=== PATIENT | male | born 1950 | race Caucasian/White ===

== ENCOUNTER → 2017-01-19 | Outpatient (CLI) | payer MEDICARE ==
[~2017-01-19] MED LIST: REGADENOSON 0.4 MG/5 ML SYRINGE IV ONE
--- NOTE | 2017-01-19 10:41 | NM ---
EXAMINATION TYPE: NM stress lexiscan cardiolite DATE OF EXAM: 01/19/2017 COMPARISON: NONE HISTORY: Abnormal EKG TECHNIQUE: After the intravenous administration of 11.0 mCi Tc 99m Sestamibi - Cardiolite resting SP ECT images acquired 65 minutes post injection. The patient received 0.4mg Lexiscan, 25.2 mCi Tc 99m Sestamibi - Stress images obtained [address] injection FINDINGS: Review of stress and rest SPECT images demonstrates fixed defect involving the inferior wall of the m yocardium. Fixed defect involving the apical inferior portion of the myocardium. Corresponding wall m otion abnormality.. Gated analysis shows an estimated left ventricular ejection fraction of 63 %. IMPRESSION: 1. Fixed defect involving the inferior and inferoapical myocardium correlate for previous infarction. 2. Ejection fraction 63%.
--- NOTE | 2017-01-19 17:18 | P.STRESS ---
- Stress Test Note Stress Test Results/Findings: Exam Performed: NM stress lexiscan cardiolite Exam Date: 01/19/17 Reason for Exam: abn ekg Height: 6 ft 2 in Weight: 139.706 kg Protocol: Reyna scan Stage: N/A Duration of Exercise: N/A Resting Heart Rate: 77 Resting Blood Pressure: 204/75 Maximum Achieved Heart Rate: 94 Maximum Achieved Blood Pressure: 206/62 85% PMHR: 129 100% PMHR: 152 METS: N/A Technologist Comment: Stress Test Results/Findings: Patient was given Lexiscan injection over a period of for 15 seconds. Resting EKG shows normal sinus rhythm with a first-degree AV block and right bundle branch block pattern was noted. No ST segment depression suggestive ischemia is noted. And has a evidence of for resting high blood pressure. The results of the nuclear study will follow.
== END | disposition home or self-care (01) ==
LOC: RADNMMAIN 07:18
PROVIDERS: ATTEND Family Medicine
DX: I45.10 Unspecified right bundle-branch block (principal); I44.0 Atrioventricular block, first degree; R03.0 Elevated blood-pressure reading, without diagnosis of hypertension; R94.39 Abnormal result of other cardiovascular function study
CPT/HCPCS: 93017; 78452; A9500; J2785

== ENCOUNTER 2018-10-04 09:31 | Inpatient (IN) | payer MEDICARE ==
[2018-10-04] MEDS ORDERED: SODIUM CHLORIDE 0.9% 1,000 ML IV STA (10:41)
--- NOTE | 2018-10-04 10:43 | ED ---
General Adult HPI - General Chief complaint: Urogenital Stated complaint: Trouble urinating/not able to eat Time Seen by Provider: 10/04/18 10:08 Source: patient, family, RN notes reviewed Mode of arrival: wheelchair Limitations: no limitations - History of Present Illness Initial comments: Patient is a pleasant 67-year-old male presenting to the emergency department for decreased urination. Patient states he has not been able to urinate much the past couple of days. In addition patient states appetite has been decreased for the past couple of days. Patient has had some fatigue. No abdominal pain. No history of similar symptoms previously. No known fevers. - Related Data Home Medications Medication Instructions Recorded Confirmed Aspirin EC [Ecotrin] 325 mg PO BID 10/04/18 10/04/18 Carvedilol Phosphate [Coreg Cr] 10 mg PO DAILY 10/04/18 10/04/18 Furosemide [Lasix] 40 mg PO DAILY 10/04/18 10/04/18 Gabapentin [Neurontin] 300 mg PO TID 10/04/18 10/04/18 HYDROcodone/APAP 10-325MG [[place] 1 tab PO TID PRN 10/04/18 10/04/18 10-325] Mupirocin [Mupirocin 2%] 1 applic TOPICAL DAILY 10/04/18 10/04/18 Niacin 500 mg PO DAILY 10/04/18 10/04/18 Potassium Chloride ER [K-Dur 10] 10 meq PO BID 10/04/18 10/04/18 Ranitidine HCl [Zantac] 150 mg PO BID 10/04/18 10/04/18 Simvastatin [Zocor] 20 mg PO HS 10/04/18 10/04/18 Spironolactone [Aldactone] 25 mg PO BID 10/04/18 10/04/18 Zafirlukast [Accolate] 20 mg PO BID 10/04/18 10/04/18 Allergies Allergy/AdvReac Type Severity Reaction Status Date / Time No Known Allergies Allergy Verified 10/04/18 10:09 Review of Systems ROS Statement: Those systems with pertinent positive or pertinent negative responses have been documented in the HPI. ROS Other: All systems not noted in ROS Statement are negative. Constitutional: Denies: fever Eyes: Denies: eye pain ENT: Denies: ear pain Respiratory: Denies: cough Cardiovascular: Denies: chest pain Endocrine: Reports: fatigue Gastrointestinal: Denies: abdominal pain Genitourinary: Reports: urgency. Denies: dysuria, testicular pain, testicular mass Musculoskeletal: Denies: back pain Skin: Denies: rash Neurological: Denies: weakness Past Medical History Past Medical History: Chest Pain / Angina, Heart Failure, COPD, Hyperlipidemia, Hypertension History of Any Multi-Drug Resistant Organisms: None Reported Additional Past Surgical History / Comment(s): tumor removed from ear Past Psychological History: No Psychological Hx Reported Smoking Status: Never smoker Past Alcohol Use History: Rare Past Drug Use History: None Reported General Exam Limitations: no limitations General appearance: alert, in no apparent distress Head exam: Present: atraumatic Eye exam: Present: normal appearance, PERRL ENT exam: Present: normal oropharynx Neck exam: Present: normal inspection Respiratory exam: Present: normal lung sounds bilaterally Cardiovascular Exam: Present: regular rate, normal rhythm GI/Abdominal exam: Present: soft. Absent: distended, tenderness exam: Present: normal inspection. Absent: testicular tenderness, scrotal swelling Extremities exam: Present: normal inspection Neurological exam: Present: alert Psychiatric exam: Present: normal affect, normal mood Skin exam: Present: normal color Course Vital Signs 10/04/18 10/04/18 09:59 11:31 Temperature 99.2 F 98.4 F Pulse Rate 81 85 Respiratory 18 18 Rate Blood Pressure 121/57 147/69 O2 Sat by Pulse 98 98 Oximetry - Reevaluation(s) Reevaluation #1: 10/04/18 13:05 Patient does not meet sepsis criteria. Medical Decision Making - Medical Decision Making Patient reevaluated. Patient and family updated. Case was discussed in detail with Dr. Amado who will admit his patient. - Lab Data Result diagrams: 10/04/18 10:58 10/04/18 10:58 Lab Results 10/04/18 10/04/18 10/04/18 Range/Units 10:58 10:58 11:25 WBC 9.5 (3.8-10.6) k/uL RBC 3.82 L (4.30-5.90) m/uL Hgb 11.2 L (13.0-17.5) gm/dL Hct 33.3 L (39.0-53.0) % MCV 87.2 (80.0-100.0) fL MCH 29.2 (25.0-35.0) pg MCHC 33.5 (31.0-37.0) g/dL RDW 13.2 (11.5-15.5) % Plt Count 203 (150-450) k/uL Neutrophils % 82 % Lymphocytes % 6 % Monocytes % 8 % Eosinophils % 0 % Basophils % 0 % Neutrophils # 7.7 (1.3-7.7) k/uL Lymphocytes # 0.5 L (1.0-4.8) k/uL Monocytes # 0.8 (0-1.0) k/uL Eosinophils # 0.0 (0-0.7) k/uL Basophils # 0.0 (0-0.2) k/uL Sodium 132 L (137-145) mmol/L Potassium 4.6 (3.5-5.1) mmol/L Chloride 98 (98-107) mmol/L Carbon Dioxide 21 L (22-30) mmol/L Anion Gap 13 mmol/L BUN 44 H (9-20) mg/dL Creatinine 1.74 H (0.66-1.25) mg/dL Est GFR (CKD-EPI)AfAm 45 (>60 ml/min/1.73 sqM) Est GFR (CKD-EPI)NonAf 39 (>60 ml/min/1.73 sqM) Glucose 161 H (74-99) mg/dL Calcium 8.7 (8.4-10.2) mg/dL Urine Color Yellow Urine Appearance Turbid (Clear) Urine pH 6.0 (5.0-8.0) Ur Specific [place] 1.019 (1.001-1.035) Urine Protein 2+ H (Negative) Urine Glucose (UA) Negative (Negative) Urine Ketones Negative (Negative) Urine Blood Moderate H (Negative) Urine Nitrite Negative (Negative) Urine Bilirubin Negative (Negative) Urine Urobilinogen <2.0 (<2.0) mg/dL Ur Leukocyte Esterase Large H (Negative) Urine WBC >182 H (0-5) /hpf Urine WBC Clumps Many H (None) /hpf Urine Bacteria Moderate H (None) /hpf Urine Mucus Few H (None) /hpf - Radiology Data Radiology results: image reviewed (Chest x-ray shows cardiomegaly. Bibasilar infiltrate/effusion.) Disposition Clinical Impression: Renal insufficiency, Urinary tract infection Disposition: ADMITTED IP TO THIS HOSP Is patient prescribed a controlled substance at d/c from ED?: No Referrals: Kyle Amado MD [Primary Care Provider] - 1-2 days Decision Time: 13:06
[2018-10-04 11:23] LABS: Calcium 8.7 mg/dL (8.4-10.2); Potassium 4.6 mmol/L (3.5-5.1)
[2018-10-04 11:30] LABS: Basophils % (A) 0 %; Eosinophils % (A) 0 %; HCT 33.3 % (39.0-53.0); HGB 11.2 gm/dL (13.0-17.5); Lymphocytes # (A) 0.5 k/uL (1.0-4.8); Lymphocytes % (A) 6 %; MCH 29.2 pg (25.0-35.0); MCHC 33.5 g/dL (31.0-37.0); MCV 87.2 fL (80.0-100.0); Mean Platelet Volume 7.5; Monocytes # (A) 0.8 k/uL (0-1.0); Monocytes % (A) 8 %; Neutrophils # (A) 7.7 k/uL (1.3-7.7); Neutrophils % (A) 82 %; Platelet Count 203 k/uL (150-450); RBC 3.82 m/uL (4.30-5.90); RDW 13.2 % (11.5-15.5); WBC 9.5 k/uL (3.8-10.6)
--- NOTE | 2018-10-04 11:30 | XR ---
EXAMINATION TYPE: XR KUB portable DATE OF EXAM: 10/04/2018 COMPARISON: None INDICATION: Pain TECHNIQUE: Single view abdomen supine view FINDINGS: There is a normal bowel gas pattern. Psoas margins are normal. No organomegaly is present. Probable phleboliths are within the inferior pelvis. There is advanced degenerative changes at the le ft hip. Moderate approaching advanced degenerative changes are at the right hip. IMPRESSION: 1. Unremarkable Abdomen
[2018-10-04 11:49] LABS: Appearance,Urine Turbid (Clear); Bacteria,Urine Moderate /hpf; Bilirubin,Urine Negative (Negative); Blood,Urine Moderate (Negative); Color,Urine Yellow; Glucose,Urine (UA) Negative (Negative); Ketones,Urine Negative (Negative); Leukocyte Esterase,Urine Large (Negative); Mucus,Urine Few /hpf; Nitrite,Urine Negative (Negative); Protein,Urine 2+ (Negative); Specific Gravity,Urine 1.019 (1.001-1.035); Urobilinogen,Urine <2.0 mg/dL (<2.0)
[2018-10-04] MEDS ORDERED: cefTRIAXone IN SWFI 1,000 MG/10 ML SYRINGE IVP STA (13:06)
[2018-10-04] MEDS ORDERED: NALOXONE 0.4 MG/ML 1 ML VIAL IV PRN (13:07)
[2018-10-04] MEDS: SODIUM CHLORIDE 0.9% 1,000 ML IV SCH (15:15)
[2018-10-04] MEDS ORDERED: HYDROcodone/APAP 10-325MG 1 EACH TAB PO PRN (16:20)
--- NOTE | 2018-10-04 16:37 | P.HPIM ---
History of Present Illness H&P Date: 10/04/18 Chief Complaint: Difficulty urinating, decreased diet intake This is 67-year-old gentleman presenting with complaints of difficulty urinating, decreased diet intake over the last 2 days, accompanied by fatigue. Denies abdominal pain. Denies fevers or chills. Denies nausea vomiting or diarrhea. Denies abdominal pain. Denies chest pain, palpitations or increased shortness of breath. Creatinine 1.74, baseline currently unknown. UA reporting high WBCs, large bacteria .Urine cultures pending. Review of Systems ROS Statement: Those systems with pertinent positive or pertinent negative responses have been documented in the HPI. ROS Other: All systems not noted in ROS Statement are negative. Past Medical History Past Medical History: Asthma, Chest Pain / Angina, Heart Failure, COPD, Diabetes Mellitus, GERD/Reflux, Hyperlipidemia, Hypertension Additional Past Medical History / Comment(s): Chronic back pain, L leg edema, poor circulation bilateral legs/especially left, NIDDM type II, neuropathy bilateral hands/feet. History of Any Multi-Drug Resistant Organisms: None Reported Past Surgical History: Ear Surgery, Tonsillectomy Additional Past Surgical History / Comment(s): Lesion removed from R ear, colonoscopy Past Anesthesia/Blood Transfusion Reactions: No Reported Reaction Smoking Status: Former smoker - Past Family History Mother Family Medical History: COPD, Coronary Artery Disease (CAD), Myocardial Infarction ([place]) Additional Family Medical History / Comment(s): Pt does not know at what age mother had [place]. She was a smoker. Father Family Medical History: COPD, Coronary Artery Disease (CAD), Myocardial Infarction ([place]) Additional Family Medical History / Comment(s): Father had [place] but pt does not know at what age. Father was a smoker. Medications and Allergies Home Medications Medication Instructions Recorded Confirmed Type Aspirin EC [Ecotrin] 325 mg PO BID 10/04/18 10/04/18 History Carvedilol Phosphate [Coreg Cr] 10 mg PO DAILY 10/04/18 10/04/18 History Furosemide [Lasix] 40 mg PO DAILY 10/04/18 10/04/18 History Gabapentin [Neurontin] 300 mg PO TID 10/04/18 10/04/18 History HYDROcodone/APAP 10-325MG [[place] 1 tab PO TID PRN 10/04/18 10/04/18 History 10-325] Mupirocin [Mupirocin 2%] 1 applic TOPICAL DAILY 10/04/18 10/04/18 History Niacin 500 mg PO DAILY 10/04/18 10/04/18 History Potassium Chloride ER [K-Dur 10] 10 meq PO BID 10/04/18 10/04/18 History Ranitidine HCl [Zantac] 150 mg PO BID 10/04/18 10/04/18 History Simvastatin [Zocor] 20 mg PO HS 10/04/18 10/04/18 History Spironolactone [Aldactone] 25 mg PO BID 10/04/18 10/04/18 History Zafirlukast [Accolate] 20 mg PO BID 10/04/18 10/04/18 History Allergies Allergy/AdvReac Type Severity Reaction Status Date / Time No Known Allergies Allergy Verified 10/04/18 10:09 Physical Exam Vitals: Vital Signs Temp Pulse Pulse Resp BP BP Pulse Ox 10/04/18 16:00 16 10/04/18 14:45 99.5 F 80 17 150/71 100 10/04/18 13:52 100.3 F H 75 18 145/65 94 L 10/04/18 11:31 98.4 F 85 18 147/69 98 10/04/18 09:59 99.2 F 81 18 121/57 98 Intake and Output 10/04/18 10/04/18 10/04/18 06:59 14:59 22:59 Other: Voiding Method Toilet Urinal Weight 136.078 kg PHYSICAL EXAM: VITAL SIGNS: As above GENERAL: Sitting up in bed, no acute distress HEENT: Conjunctivae normal. eyes normal. NECK: No JVD. No thyroid enlargement. No LNs CARDIOVASCULAR: S1, S2 muffled. No murmur RESPIRATION: Breath sounds diminished in the bases. No rhonchi or crackles. No bronchial breathing. ABDOMEN: Soft, nontender . No guarding. no masses palpable. Bowel sounds heard. LEGS: No edema. no swelling PSYCHIATRY: Alert and oriented -3, mood and affect normal. NERVOUS SYSTEM: Cranial N 2-12 grossly normal. Moves all 4 limbs. Diffuse weakness No focal deficits. Skin: no lesions, no rash Joints: No active swelling. No inflammation. Lymphatic system. No LN neck axilla or groin. Microbiology 10/04/18 11:25 Urine,Voided Urine Culture - Preliminary Results CBC & Chem 7: 10/04/18 10:58 10/04/18 10:58 Labs: Abnormal Lab Results - Last 24 Hours (Table) 10/04/18 10/04/18 10/04/18 Range/Units 10:58 10:58 11:25 RBC 3.82 L (4.30-5.90) m/uL Hgb 11.2 L (13.0-17.5) gm/dL Hct 33.3 L (39.0-53.0) % Lymphocytes # 0.5 L (1.0-4.8) k/uL Sodium 132 L (137-145) mmol/L Carbon Dioxide 21 L (22-30) mmol/L BUN 44 H (9-20) mg/dL Creatinine 1.74 H (0.66-1.25) mg/dL Glucose 161 H (74-99) mg/dL Urine Protein 2+ H (Negative) Urine Blood Moderate H (Negative) Ur Leukocyte Esterase Large H (Negative) Urine WBC >182 H (0-5) /hpf Urine WBC Clumps Many H (None) /hpf Urine Bacteria Moderate H (None) /hpf Urine Mucus Few H (None) /hpf Microbiology - Last 24 Hours (Table) 10/04/18 11:25 Urine Culture - Preliminary Urine,Voided Thrombosis Risk Factor Assmnt - Choose All That Apply Any of the Below Risk Factors Present?: Yes Each Factor Represents 1 point: Abnormal pulmonary function (COPD), Obesity (BMI >25) Other Risk Factors: Yes Each Risk Factor Represents 2 Points: Age 61-74 years Other congenital or acquired thrombophilia - If yes, enter type in comment: No Thrombosis Risk Factor Assessment Total Risk Factor Score: 4 Thrombosis Risk Factor Assessment Level: Moderate Risk Assessment and Plan Assessment: Acute UTI, cultures pending -Acute renal failure -COPD -CHF history, Echo ordered. -Gastroesophageal reflux disease -Hypertension -Hyperlipidemia -Former nicotine abuse -Chronic back pain -Diabetes mellitus type 2 Plan: Continue on current medication regime ,monitoring and symptomatic treatment. Maintain nebulized bronchodilators, Rocephin, gentle IV fluid hydration. Cultures pending. Echo ordered if not done within the last 6 months Home meds have been reviewed and resumed. The impression and plan of care has been dictated as directed. : I performed a history and examination of this patient, discussed the same with the dictator. I agree with the dictator's note ,documented as a scribe. Any additional findings or plans will be noted.
[2018-10-04 17:05] LABS: Glucose,Whole Blood 134 mg/dL (75-99)
[2018-10-04] MEDS: FAMOTIDINE 20 MG TAB PO SCH (20:10)
[2018-10-04] MEDS: MONTELUKAST 10 MG TAB PO SCH (20:10)
[2018-10-04] MEDS: ASPIRIN 325 MG TAB PO SCH (20:10)
[2018-10-04] MEDS: ATORVASTATIN 10 MG TAB PO SCH (20:10)
[2018-10-04] MEDS: SPIRONOLACTONE 25 MG TAB PO SCH (20:10)
[2018-10-04] MEDS: GABAPENTIN 300 MG CAP PO SCH (20:10)
[2018-10-04] MEDS: POTASSIUM CHLORIDE ER 10 MEQ TAB.ER.PRT PO SCH (20:11)
[2018-10-04 21:17] LABS: Glucose,Whole Blood 157 mg/dL (75-99)
[2018-10-05] MEDS: SODIUM CHLORIDE 0.9% 1,000 ML IV SCH ×2 (03:40→17:42)
[2018-10-05] MEDS: GABAPENTIN 300 MG CAP PO SCH ×3 (08:15→23:24)
[2018-10-05] MEDS: ASPIRIN 325 MG TAB PO SCH ×2 (08:15→21:06)
[2018-10-05] MEDS: CARVEDILOL 3.125 MG TAB PO SCH ×2 (08:15→17:41)
[2018-10-05] MEDS: FAMOTIDINE 20 MG TAB PO SCH ×2 (08:15→21:06)
[2018-10-05] MEDS: POTASSIUM CHLORIDE ER 10 MEQ TAB.ER.PRT PO SCH ×2 (08:15→21:06)
[2018-10-05] MEDS: SPIRONOLACTONE 25 MG TAB PO SCH ×2 (08:15→21:06)
[2018-10-05] MEDS: MUPIROCIN 2% OINT 22 GM TUBE TOPICAL SCH (08:16)
[2018-10-05] MEDS: NIACIN TR 500 MG CAPLET PO SCH (08:17)
[2018-10-05] MEDS ORDERED: FUROSEMIDE 40 MG TAB PO SCH (09:00)
[2018-10-05 09:43] LABS: Basophils % (A) 0 %; Eosinophils # (A) 0.1 k/uL (0-0.7); Eosinophils % (A) 1 %; HCT 30.6 % (39.0-53.0); HGB 10.2 gm/dL (13.0-17.5); Lymphocytes # (A) 0.4 k/uL (1.0-4.8); Lymphocytes % (A) 5 %; MCH 29.9 pg (25.0-35.0); MCHC 33.4 g/dL (31.0-37.0); MCV 89.5 fL (80.0-100.0); Mean Platelet Volume 7.6; Monocytes # (A) 0.5 k/uL (0-1.0); Monocytes % (A) 6 %; Neutrophils # (A) 6.7 k/uL (1.3-7.7); Neutrophils % (A) 84 %; Platelet Count 177 k/uL (150-450); RBC 3.42 m/uL (4.30-5.90); RDW 13.2 % (11.5-15.5)
[2018-10-05 10:00] LABS: Albumin 3.4 g/dL (3.5-5.0); Calcium 8.3 mg/dL (8.4-10.2); Potassium 4.2 mmol/L (3.5-5.1); Total Bilirubin 0.5 mg/dL (0.2-1.3); Total Protein 6.1 g/dL (6.3-8.2)
--- NOTE | 2018-10-05 13:19 | ECHOF ---
Referral Reason:LV function MEASUREMENTS -------- HEIGHT: 193.0 cm WEIGHT: 136.1 kg BP: 131/71 RVIDd: 3.3 cm (< 3.3) IVSd: 1.4 cm (0.6 - 1.1) LVIDd: 4.8 cm (3.9 - 5.3) LVPWd: 1.4 cm (0.6 - 1.1) IVSs: 1.8 cm LVIDs: 3.3 cm LVPWs: 2.0 cm LA Diam: 4.2 cm (2.7 - 3.8) LAESV Index (A-L): 31.16 ml/m Ao Diam: 3.6 cm (2.0 - 3.7) AV Cusp: 2.3 cm (1.5 - 2.6) MV EXCURSION: 17.332 mm (> 18.000) MV EF SLOPE: 52 mm/s (70 - 150) EPSS: 0.4 cm MV E Joel: 0.98 m/s MV DecT: 188 ms MV A Joel: 0.77 m/s MV E/A Ratio: 1.28 RAP: 5.00 mmHg RVSP: 26.20 mmHg FINDINGS -------- Sinus rhythm. This was a technically difficult study with suboptimal views. The left ventricular size is normal. There is moderate concentric left ventricular hypertrophy. O verall left ventricular systolic function is normal with, an EF between 55 - 60 %. The right ventricle is mildly enlarged. LA is midly dilated 29-33ml/m2. The right atrium is normal in size. 5 ml of Lumason was utilized for enhancement of images. The aortic valve was not well visualized. The mitral valve leaflets are mildly thickened. Mild mitral annular calcification present. Mild tricuspid regurgitation present. Right ventricular systolic pressure is normal at < 35 mmHg. The pulmonic valve was not well visualized. The aortic root size is normal. Normal inferior vena cava with normal inspiratory collapse consistent with estimated right atrial pre ssure of 5 mmHg. There is no pericardial effusion. CONCLUSIONS -------- 1. Sinus rhythm. 2. This was a technically difficult study with suboptimal views. 3. The left ventricular size is normal. 4. There is moderate concentric left ventricular hypertrophy. 5. Overall left ventricular systolic function is normal with, an EF between 55 - 60 %. 6. The right ventricle is mildly enlarged. 7. LA is midly dilated 29-33ml/m2. 8. The right atrium is normal in size. 9. 5 ml of Lum[place] was utilized for enhancement of images. 10. The aortic valve was not well visualized. 11. The mitral valve leaflets are mildly thickened. 12. Mild mitral annular calcification present. 13. Mild tricuspid regurgitation present. 14. Right ventricular systolic pressure is normal at < 35 mmHg. 15. The pulmonic valve was not well visualized. 16. The aortic root size is normal. 17. Normal inferior vena cava with normal inspiratory collapse consistent with estimated right atrial pressure of 5 mmHg. 18. There is no pericardial effusion. INSTRUMENTATION DESIGNER: Carmelita Gurrola RDCS
--- NOTE | 2018-10-05 15:54 | P.PN ---
Subjective Progress Note Date: 10/05/18 This is 67-year-old gentleman presenting with complaints of difficulty urinating, decreased diet intake over the last 2 days, accompanied by fatigue. Denies abdominal pain. Denies fevers or chills. Denies nausea vomiting or diarrhea. Denies abdominal pain. Denies chest pain, palpitations or increased shortness of breath. Creatinine 1.74, baseline currently unknown. UA reporting high WBCs, large bacteria .Urine cultures pending. Maintained on IV antibiotics, gentle IV fluid hydration. T-max 100.3, currently afebrile. Afebrile. Renal function improving. Minimal pain/pressure with urination. Cultures reporting gram-negative bacilli. Echo suboptimal ,reporting normal LV function, EF 55-60%, moderate concentric left ventricular hypertrophy. Denies chest pain, palpitations or shortness of breath. Denies focal deficits, lightheadedness or dizziness. Objective - Vital Signs Vital signs: Vital Signs Temp 97.8 F 10/05/18 11:51 Pulse 64 10/05/18 11:51 Resp 18 10/05/18 15:30 BP 135/63 10/05/18 11:51 Pulse Ox 97 10/05/18 11:51 Intake & Output 10/04/18 10/05/18 10/05/18 18:59 06:59 18:59 Output Total 300 100 Balance -300 -100 Weight 136.078 kg Output: Urine 300 100 Other: Voiding Method Urinal Urinal Urinal # Voids 3 4 - Exam VITAL SIGNS: As above GENERAL: Sitting up at side of bed, no acute distress, visiting with friend HEENT: Conjunctivae normal. eyes normal. Oral mucosa moist NECK: No JVD. No thyroid enlargement. No LNs CARDIOVASCULAR: S1, S2 muffled. No murmur RESPIRATION: Breath sounds diminished in the bases. No rhonchi or crackles. ABDOMEN: Soft, nontender . No guarding. no masses palpable. Bowel sounds heard. LEGS: No edema. no swelling PSYCHIATRY: Alert and oriented -3, mood and affect normal. NERVOUS SYSTEM: Cranial N 2-12 grossly normal. Moves all 4 limbs. Diffuse weakness No focal deficits. Skin: no lesions, no rash Microbiology 10/04/18 11:25 Urine,Voided Urine Culture - Preliminary Gram Neg Bacilli - Labs CBC & Chem 7: 10/05/18 09:05 10/05/18 09:05 Labs: Abnormal Lab Results - Last 24 Hours (Table) 10/04/18 10/04/18 10/05/18 Range/Units 16:53 21:16 09:05 RBC (4.30-5.90) m/uL Hgb (13.0-17.5) gm/dL Hct (39.0-53.0) % Lymphocytes # (1.0-4.8) k/uL Sodium 133 L (137-145) mmol/L Carbon Dioxide 21 L (22-30) mmol/L BUN 44 H (9-20) mg/dL Creatinine 1.50 H (0.66-1.25) mg/dL Glucose 155 H (74-99) mg/dL POC Glucose (mg/dL) 134 H 157 H (75-99) mg/dL Calcium 8.3 L (8.4-10.2) mg/dL Total Protein 6.1 L (6.3-8.2) g/dL Albumin 3.4 L (3.5-5.0) g/dL 10/05/18 Range/Units 09:05 RBC 3.42 L (4.30-5.90) m/uL Hgb 10.2 L (13.0-17.5) gm/dL Hct 30.6 L (39.0-53.0) % Lymphocytes # 0.4 L (1.0-4.8) k/uL Sodium (137-145) mmol/L Carbon Dioxide (22-30) mmol/L BUN (9-20) mg/dL Creatinine (0.66-1.25) mg/dL Glucose (74-99) mg/dL POC Glucose (mg/dL) (75-99) mg/dL Calcium (8.4-10.2) mg/dL Total Protein (6.3-8.2) g/dL Albumin (3.5-5.0) g/dL Microbiology - Last 24 Hours (Table) 10/04/18 11:25 Urine Culture - Preliminary Urine,Voided Gram Neg Bacilli Assessment and Plan Assessment: Acute UTI, gram-negative bacilli -Acute renal failure, improving -COPD -CHF history, EF 55-60%, diastolic dysfunction -Gastroesophageal reflux disease -Hypertension -Hyperlipidemia -Former nicotine abuse -Chronic back pain -Diabetes mellitus type 2 Plan: Continue on current medication regime ,monitoring and symptomatic tr eatment. Continue on nebulized bronchodilators, Rocephin, gentle IV fluid hydration. Discharge planning in progress for tomorrow pending final culture results. Increase ambulation as tolerated. Further recommendations to follow. The impression and plan of care has been dictated as directed. : I performed a history and examination of this patient, discussed the same with the dictator. I agree with the dictator's note ,documented as a scribe. Any additional findings or plans will be noted.
[2018-10-05 20:52] LABS: Glucose,Whole Blood 140 mg/dL (75-99)
[2018-10-05] MEDS: MONTELUKAST 10 MG TAB PO SCH (21:06)
[2018-10-05] MEDS: ATORVASTATIN 10 MG TAB PO SCH (21:06)
--- NOTE | 2018-10-05 23:19 | P.CONS ---
History of Present Illness - Reason for Consult Consult date: 10/05/18 Urinary tract infection Requesting physician: Kyle Amado - Chief Complaint Decreased urination burning and low appetite x few days - History of Present Illness Patient is a 68-year-old male presenting to the ER at [facility] with chief complaints of generalized weakness and no energy poor appetite in addition to decreased urine output , the patient also have dark urine with burning at urination no hematuria no suprapubic or flank pain denies having nausea vomiting but did have a low appetite as mentioned above and no diarrhea with the symptoms the patient presented to the hospital for further evaluation and same on arrival to the orthopedic have fever 100.3 patient white count was normal but pt has significantly positive UA patient was started on Rocephin admitted to the hospital infectious disease was consulted for further recommendation regarding antibiotic therapy, Review of Systems CONSTITUTIONAL: Positive for weakness. Fever EYES: No complaint. ENT:No complaint. RESPIRATORY: No complaint. CARDIOVASCULAR: No complaint. GENITOURINARY: As per history of present illness GASTROINTESTINAL: As per history of present illness MUSCULOSKELETAL: No complaint. INTEGUMENTARY: No complaint. PSYCHOLOGICAL: No complaint. ENDOCRINE: No complaint. NEUROLOGIC: No complaint. Past Medical History Past Medical History: Asthma, Chest Pain / Angina, Heart Failure, COPD, Diabetes Mellitus, GERD/Reflux, Hyperlipidemia, Hypertension Additional Past Medical History / Comment(s): Chronic back pain, L leg edema, poor circulation bilateral legs/especially left, NIDDM type II, neuropathy bilateral hands/feet. History of Any Multi-Drug Resistant Organisms: None Reported Past Surgical History: Ear Surgery, Tonsillectomy Additional Past Surgical History / Comment(s): Lesion removed from R ear, colonoscopy Past Anesthesia/Blood Transfusion Reactions: No Reported Reaction Smoking Status: Former smoker - Past Family History Mother Family Medical History: COPD, Coronary Artery Disease (CAD), Myocardial Infarction (KS) Additional Family Medical History / Comment(s): Pt does not know at what age mother had [place]. She was a smoker. Father Family Medical History: COPD, Coronary Artery Disease (CAD), Myocardial Infarction ([place]) Additional Family Medical History / Comment(s): Father had [place] but pt does not know at what age. Father was a smoker. Medications and Allergies Home Medications Medication Instructions Recorded Confirmed Type Aspirin EC [Ecotrin] 325 mg PO BID 10/04/18 10/04/18 History Carvedilol Phosphate [Coreg Cr] 10 mg PO DAILY 10/04/18 10/04/18 History Furosemide [Lasix] 40 mg PO DAILY 10/04/18 10/04/18 History Gabapentin [Neurontin] 300 mg PO TID 10/04/18 10/04/18 History HYDROcodone/APAP 10-325MG [[place] 1 tab PO TID PRN 10/04/18 10/04/18 History 10-325] Mupirocin [Mupirocin 2%] 1 applic TOPICAL DAILY 10/04/18 10/04/18 History Niacin 500 mg PO DAILY 10/04/18 10/04/18 History Potassium Chloride ER [K-Dur 10] 10 meq PO BID 10/04/18 10/04/18 History Ranitidine HCl [Zantac] 150 mg PO BID 10/04/18 10/04/18 History Simvastatin [Zocor] 20 mg PO HS 10/04/18 10/04/18 History Spironolactone [Aldactone] 25 mg PO BID 10/04/18 10/04/18 History Zafirlukast [Accolate] 20 mg PO BID 10/04/18 10/04/18 History Allergies Allergy/AdvReac Type Severity Reaction Status Date / Time No Known Allergies Allergy Verified 10/04/18 10:09 Physical Exam Vitals: Vital Signs Temp Pulse Pulse Resp BP BP Pulse Ox 10/05/18 11:51 97.8 F 64 18 135/63 97 10/05/18 08:00 18 10/05/18 04:30 98.2 F 71 18 131/71 98 10/04/18 21:00 98.7 F 69 18 115/89 97 10/04/18 16:00 16 10/04/18 14:45 99.5 F 80 17 150/71 100 10/04/18 13:52 100.3 F H 75 18 145/65 94 L Intake and Output 10/04/18 10/05/18 10/05/18 22:59 06:59 14:59 Output Total 400 Balance -400 Output: Urine 400 Other: Voiding Method Urinal Urinal # Voids 1 4 GENERAL DESCRIPTION: Elderly male lying in bed, no distress. No tachypnea or accessory muscle of respiration use. HEENT: Shows Pallor , no scleral icterus. Oral mucous membrane is dry. No pharyngeal erythema or thrush NECK: Trachea central, no thyromegaly. LUNGS: Unlabored breathing. Clear to auscultation anteriorly. No wheeze or crackle. HEART: S1, S2, regular rate and rhythm. No loud murmur ABDOMEN: Soft, no tenderness , guarding or rigidity, no organomegaly EXTREMITIES: No edema of feet. SKIN: No rash, no masses palpable. NEUROLOGICAL: The patient is awake, alert, oriented x3, mood and affect normal. Results CBC & Chem 7: 10/05/18 09:05 10/05/18 09:05 Labs: Abnormal Lab Results - Last 24 Hours (Table) 10/04/18 10/04/18 10/05/18 Range/Units 16:53 21:16 09:05 RBC (4.30-5.90) m/uL Hgb (13.0-17.5) gm/dL Hct (39.0-53.0) % Lymphocytes # (1.0-4.8) k/uL Sodium 133 L (137-145) mmol/L Carbon Dioxide 21 L (22-30) mmol/L BUN 44 H (9-20) mg/dL Creatinine 1.50 H (0.66-1.25) mg/dL Glucose 155 H (74-99) mg/dL POC Glucose (mg/dL) 134 H 157 H (75-99) mg/dL Calcium 8.3 L (8.4-10.2) mg/dL Total Protein 6.1 L (6.3-8.2) g/dL Albumin 3.4 L (3.5-5.0) g/dL 10/05/18 Range/Units 09:05 RBC 3.42 L (4.30-5.90) m/uL Hgb 10.2 L (13.0-17.5) gm/dL Hct 30.6 L (39.0-53.0) % Lymphocytes # 0.4 L (1.0-4.8) k/uL Sodium (137-145) mmol/L Carbon Dioxide (22-30) mmol/L BUN (9-20) mg/dL Creatinine (0.66-1.25) mg/dL Glucose (74-99) mg/dL POC Glucose (mg/dL) (75-99) mg/dL Calcium (8.4-10.2) mg/dL Total Protein (6.3-8.2) g/dL Albumin (3.5-5.0) g/dL Microbiology - Last 24 Hours (Table) 10/04/18 11:25 Urine Culture - Preliminary Urine,Voided Gram Neg Bacilli Assessment and Plan Assessment: 1-patient presented to hospital with a fever and generalized weakness urinary symptoms of difficulty urination burning likely representing urinary tract infection likely from enteric gram-negative pathogen with concern for possible urinary outflow obstruction as possible risk factor (1) Urinary tract infection Current Visit: Yes Status: Acute Code(s): N39.0 - URINARY TRACT INFECTION, SITE NOT SPECIFIED SNOMED Code(s): 20449551 Plan: 1-Rocephin 1 g IV piggyback daily 2-check ultrasound of the kidney plantar area 3-gentle IV fluid We will follow-up clinical condition and cultures to further adjust medication if needed Thank you for this consultation will follow this patient along with you Time with Patient: Greater than 30
[2018-10-06] MEDS: SODIUM CHLORIDE 0.9% 1,000 ML IV SCH ×2 (06:26→20:03)
--- NOTE | 2018-10-06 07:56 | US ---
EXAMINATION TYPE: US kidneys/renal and bladder DATE OF EXAM: 10/06/2018 COMPARISON: NONE CLINICAL HISTORY: UTI , Elevated Cr. Painful urination EXAM MEASUREMENTS: Right Kidney: 11.8 x 5.9 x 4.8 cm Left Kidney: 13.7 x 6.6 x 5.6 cm Right Kidney: No hydronephrosis or masses seen Left Kidney: No hydronephrosis or masses seen Bladder: Anechoic. Slight urinary bladder wall thickening measuring up to 6 mm. No masses seen. Patie nt could not void. Stated he had "just gone" but it was painful. Bilateral Jets seen: No Normal Post Void Residual: Unable to void. There is no evidence for hydronephrosis at this point in time. No nephrolithiasis is seen. No raquel s are identified. The urinary bladder is anechoic. IMPRESSION: 1. No hydronephrosis or nephrolithiasis. 2. Slight thickening of the urinary bladder is most likely related to this patient's known cystitis. No focal mass is seen however CT urogram could further assess for sessile lesions if there is further clinical concern.
[2018-10-06 08:34] LABS: Calcium 8.3 mg/dL (8.4-10.2); Potassium 4.3 mmol/L (3.5-5.1)
[2018-10-06] MEDS: ASPIRIN 325 MG TAB PO SCH ×2 (08:41→20:03)
[2018-10-06] MEDS: CARVEDILOL 3.125 MG TAB PO SCH ×2 (08:41→16:04)
[2018-10-06] MEDS: GABAPENTIN 300 MG CAP PO SCH ×3 (08:41→20:03)
[2018-10-06] MEDS: FAMOTIDINE 20 MG TAB PO SCH ×2 (08:41→20:03)
[2018-10-06] MEDS: POTASSIUM CHLORIDE ER 10 MEQ TAB.ER.PRT PO SCH ×2 (08:42→20:03)
[2018-10-06] MEDS: MUPIROCIN 2% OINT 22 GM TUBE TOPICAL SCH (08:42)
[2018-10-06] MEDS: NIACIN TR 500 MG CAPLET PO SCH (08:42)
[2018-10-06] MEDS: SPIRONOLACTONE 25 MG TAB PO SCH ×2 (08:42→20:03)
[2018-10-06 08:50] LABS: HCT 30.9 % (39.0-53.0); HGB 10.2 gm/dL (13.0-17.5); MCH 29.9 pg (25.0-35.0); MCV 90.7 fL (80.0-100.0); Mean Platelet Volume 7.5; Platelet Count 179 k/uL (150-450); RBC 3.41 m/uL (4.30-5.90); RDW 13.6 % (11.5-15.5); WBC 7.7 k/uL (3.8-10.6)
[2018-10-06 09:53] LABS: Lymphocytes # (M) 0.92 k/uL (1.0-4.8); Monocytes # (M) 0.54 k/uL (0-1.0); Neutrophils # (M) 6.24 k/uL (1.3-7.7); Neutrophils % (M) 81 %; Nucleated Red Blood Cells 0 /100 WBC (0-0); Total Cells Counted 100
[2018-10-06] MEDS: TAMSULOSIN 0.4 MG CAP.ER.24H PO SCH (12:54)
--- NOTE | 2018-10-06 13:26 | PN ---
PROGRESS NOTE DATE OF SERVICE: 10/06/2018 REASON FOR FOLLOWUP: Urinary tract infection. INTERVAL HISTORY: The patient is currently afebrile. Patient has been breathing comfortably. Denies having any chest pain or any cough. No abdominal pain or diarrhea. PHYSICAL EXAMINATION: On examination, blood pressure 148/66 with a pulse of 66, temperature 98.3. He is 98% on room air. General description is an elderly male lying in bed in no distress. RESPIRATORY SYSTEM: Unlabored breathing, clear to auscultation anteriorly. HEART: S1, S2. Regular rate and rhythm. ABDOMEN: Soft, no tenderness. LABS: Hemoglobin 10.2. White count 7.7. BUN of 44, creatinine 1.35. Urine with an E coli, that is sensitive pathogen. DIAGNOSTIC IMPRESSION AND PLAN: Patient with Escherichia coli urinary tract infection. Patient currently covered with Rocephin dose should adjusted to 1 gram daily with the plan to finish therapy with oral antibiotic. Continue supportive care. MMODL / IJN: [id number] / MTDD
--- NOTE | 2018-10-06 14:54 | P.PN ---
Subjective Progress Note Date: 10/06/18 This is 67-year-old gentleman presenting with complaints of difficulty urinating, decreased diet intake over the last 2 days, accompanied by fatigue. Denies abdominal pain. Denies fevers or chills. Denies nausea vomiting or diarrhea. Denies abdominal pain. Denies chest pain, palpitations or increased shortness of breath. Creatinine 1.74, baseline currently unknown. UA reporting high WBCs, large bacteria .Urine cultures pending. Maintained on IV antibiotics, gentle IV fluid hydration. T-max 100.3, currently afebrile. Afebrile. Renal function improving. Minimal pain/pressure with urination. Cultures reporting gram-negative bacilli. Echo suboptimal ,reporting normal LV function, EF 55-60%, moderate concentric left ventricular hypertrophy. Denies chest pain, palpitations or shortness of breath. Denies focal deficits, lightheadedness or dizziness. 10/06/2018 preliminary blood cultures negative, urine culture reporting E. coli. Maintained on Rocephin IV. Complaints of difficulty voiding, urinary retention. Voided 200ml with post void residual of 250. Afebrile, normal WBC. Renal function improving, creatinine 1.35. Objective - Vital Signs Vital signs: Vital Signs Temp 97.4 F L 10/06/18 13:06 Pulse 64 10/06/18 13:06 Resp 18 10/06/18 13:06 BP 126/54 10/06/18 13:06 Pulse Ox 91 L 10/06/18 13:06 Intake & Output 10/05/18 10/06/18 10/06/18 18:59 06:59 18:59 Intake Total 300 650 Output Total 550 Balance -250 650 Intake: IV 650 Sodium Chloride 0.9% 1, 600 000 ml @ 75 mls/hr IV . [id number] FRANDY Rx#:[id number] cefTRIAXone 1 gm In 50 Sodium Chloride 0.9% 50 ml @ 100 mls/hr IVPB Q12HR FRANDY Rx#:[id number] Oral 300 Output: Urine 550 Other: Voiding Method Urinal Urinal # Voids 600 2 - Exam VITAL SIGNS: As above GENERAL: Sitting up at side of bed, no acute distress HEENT: Conjunctivae normal. eyes normal. Oral mucosa moist NECK: No JVD. No thyroid enlargement. No LNs CARDIOVASCULAR: S1, S2 muffled. No murmur RESPIRATION: Breath sounds diminished in the bases. No rhonchi or crackles. ABDOMEN: Soft, nontender . No guarding. no masses palpable. Bowel sounds heard. LEGS: No edema. no swelling PSYCHIATRY: Alert and oriented -3, mood and affect normal. NERVOUS SYSTEM: Cranial N 2-12 grossly normal. Moves all 4 limbs. Diffuse weakness No focal deficits. Skin: no lesions, no rash Microbiology 10/04/18 11:25 Urine,Voided Urine Culture - Final Escherichia coli 10/04/18 17:15 Blood Blood Culture - Preliminary No Growth after 24 hours 10/04/18 17:02 Blood Blood Culture - Preliminary No Growth after 24 hours - Labs CBC & Chem 7: 10/06/18 07:52 10/06/18 07:52 Labs: Abnormal Lab Results - Last 24 Hours (Table) 10/05/18 10/06/18 10/06/18 Range/Units 20:49 07:52 07:52 RBC 3.41 L (4.30-5.90) m/uL Hgb 10.2 L (13.0-17.5) gm/dL Hct 30.9 L (39.0-53.0) % Lymphocytes # (Manual) 0.92 L (1.0-4.8) k/uL Sodium 135 L (137-145) mmol/L Carbon Dioxide 21 L (22-30) mmol/L BUN 44 H (9-20) mg/dL Creatinine 1.35 H (0.66-1.25) mg/dL Glucose 124 H (74-99) mg/dL POC Glucose (mg/dL) 140 H (75-99) mg/dL Calcium 8.3 L (8.4-10.2) mg/dL Microbiology - Last 24 Hours (Table) 10/04/18 11:25 Urine Culture - Final Urine,Voided Escherichia coli 10/04/18 17:15 Blood Culture - Preliminary Blood No Growth after 24 hours 10/04/18 17:02 Blood Culture - Preliminary Blood No Growth after 24 hours Assessment and Plan Assessment: Acute UTI, gram-negative bacilli -Acute renal failure, improving -COPD -CHF history, EF 55-60%, diastolic dysfunction -Gastroesophageal reflux disease -Hypertension -Hyperlipidemia -Former nicotine abuse -Chronic back pain -Diabetes mellitus type 2 Plan: Continue on current medication regime ,monitoring and symptomatic treatment. Flomax added to med regime .post void residuals after each void .Continue on nebulized bronchodilators, Rocephin, gentle IV fluid hydration. Discharge planning in progress for tomorrow. Further recommendations to follow. The impression and plan of care has been dictated as directed. : I performed a history and examination of this patient, discussed the same with the dictator. I agree with the dictator's note ,documented as a scribe. Any additional findings or plans will be noted.
[2018-10-06] MEDS: ATORVASTATIN 10 MG TAB PO SCH (20:03)
[2018-10-06] MEDS: MONTELUKAST 10 MG TAB PO SCH (20:03)
[2018-10-07 07:55] LABS: HCT 28.9 % (39.0-53.0); HGB 9.6 gm/dL (13.0-17.5); MCH 30.1 pg (25.0-35.0); MCHC 33.4 g/dL (31.0-37.0); MCV 90.2 fL (80.0-100.0); Mean Platelet Volume 7.7; Platelet Count 220 k/uL (150-450); RDW 13.5 % (11.5-15.5); WBC 5.9 k/uL (3.8-10.6)
[2018-10-07] MEDS: CARVEDILOL 3.125 MG TAB PO SCH (08:01)
[2018-10-07 08:02] LABS: Anion Gap 8 mmol/L; Blood Urea Nitrogen 30 mg/dL (9-20); Calcium 8.4 mg/dL (8.4-10.2); Carbon Dioxide 21 mmol/L (22-30); Chloride 108 mmol/L (98-107); Glucose 133 mg/dL (74-99); Potassium 4.7 mmol/L (3.5-5.1); Sodium 137 mmol/L (137-145)
[2018-10-07] MEDS: GABAPENTIN 300 MG CAP PO SCH (08:02)
[2018-10-07] MEDS: ASPIRIN 325 MG TAB PO SCH (08:02)
[2018-10-07] MEDS: FAMOTIDINE 20 MG TAB PO SCH (08:02)
[2018-10-07] MEDS: SPIRONOLACTONE 25 MG TAB PO SCH (08:02)
[2018-10-07] MEDS: MUPIROCIN 2% OINT 22 GM TUBE TOPICAL SCH (08:02)
[2018-10-07] MEDS: POTASSIUM CHLORIDE ER 10 MEQ TAB.ER.PRT PO SCH (08:02)
[2018-10-07] MEDS: TAMSULOSIN 0.4 MG CAP.ER.24H PO SCH (08:02)
[2018-10-07] MEDS: SODIUM CHLORIDE 0.9% 1,000 ML IV SCH (08:03)
[2018-10-07] MEDS: NIACIN TR 500 MG CAPLET PO SCH (08:05)
[2018-10-07 08:17] VITALS: BP 154/71; PULSE 81; RESP 16; TEMP 97.6
[2018-10-07 08:36] LABS: Eosinophils # (M) 0.06 k/uL (0-0.7); Lymphocytes # (M) 0.94 k/uL (1.0-4.8); Monocytes # (M) 0.53 k/uL (0-1.0); Neutrophils # (M) 4.37 k/uL (1.3-7.7); Neutrophils % (M) 74 %; Nucleated Red Blood Cells 0 /100 WBC (0-0); Total Cells Counted 100
--- NOTE | 2018-10-07 13:44 | CDI ---
Documentation Clarification Form Date: 10/07/2018 1:33:25 PM From: Lisandra Baumann RN CCDS [id number] Admit Date: 10/06/2018 8:29:00 PM Patient Name: Richy Jones Visit Number: [id number] Discharge Date: ATTENTION: The Clinical Documentation Specialists (CDI) and [facility] Coding Staff appreciate your assistance in clarifying documentation. Please respond to the clarification below the line at the bottom and electronically sign. The CDI & [facility] Coding staff will review the response and follow-up if needed. Please note: Queries are made part of the Legal Health Record. If you have any questions, please contact the author of this message via ITS. Dr. Kyle Amado Chronic Back Pain is documented in the H & P . Patient history/risk factors: 68 year old male presents to the ED with difficulty in urinating and fatigue. Medical history of chronic back pain , Asthma ,Diastolic CHF, Clinical Indicators: Vital Signs: 121/57 81 99.2 18 98% ra Other Clinical Indicators: Treatment: Inpatient medication [place] 10/325 Medication: Home medication [place] 10/325 In order to capture the severity of condition, if possible and in your professional opinion, please clarify the following: * Chronic Opioid dependence * Other, please specify * Unable to determine (Last Revision: March 2017) Unable to determine MTDD
--- NOTE | 2018-10-07 14:24 | PN ---
PROGRESS NOTE DATE OF SERVICE: 10/07/2018 REASON FOR FOLLOWUP: E coli urinary tract infection. INTERVAL HISTORY: The patient is currently afebrile. Patient is breathing comfortably. Denies having any chest pain or any cough. No abdominal pain, no diarrhea. PHYSICAL EXAMINATION: Blood pressure 154/71 with a pulse of 81, temperature 97.6, he is 96% on room air. General description is an elderly male, lying in bed in no distress. RESPIRATORY SYSTEM: Unlabored breathing, clear to auscultation anteriorly. HEART: S1, S2. Regular rate and rhythm. ABDOMEN: Soft, no tenderness. LABS: Hemoglobin 9.1, white count 5.9 with a BUN of 30, creatinine 0.5. DIAGNOSTIC IMPRESSION AND PLAN: Patient with Escherichia coli urinary tract infection which is sensitive pathogen. Overall improvement on Rocephin. Antibiotic was switched over to Ceftin 500 mg twice a day for another 5 days to finish a course of therapy with close outpatient followup. Continue supportive care. MMODL / TALITAN: [id number] /
--- NOTE | 2018-10-07 15:44 | P.DS ---
Providers Date of admission: 10/06/18 20:29 Expected date of discharge: 10/07/18 Attending physician: Kyle Amado Consults: 10/04/18 16:22 Consult Physician Routine Consulting Provider: Fadumo Mitchell Consult Reason/Comments: urosepsis Do you want consulting provider notified?: Yes Primary care physician: Kyle Amado [facility] Course: Final Diagnoses: Acute UTI, E. coli -Acute renal failure, improving -COPD -CHF history, EF 55-60%, diastolic dysfunction -Gastroesophageal reflux disease -Hypertension -Hyperlipidemia -Former nicotine abuse -Chronic back pain -Diabetes mellitus type 2 Hospital course:This is 67-year-old gentleman presenting with complaints of difficulty urinating, decreased diet intake over the last 2 days, accompanied by fatigue. Denies abdominal pain. Denies fevers or chills. Denies nausea vomiting or diarrhea. Denies abdominal pain. Denies chest pain, palpitations or increased shortness of breath. Creatinine 1.74, baseline currently unknown. UA reporting high WBCs, large bacteria .Urine cultures pending. Maintained on IV antibiotics, gentle IV fluid hydration. T-max 100.3, currently afebrile. Afebrile. Renal function improving. Minimal pain/pressure with urination. Cultures reporting gram-negative bacilli. Echo suboptimal ,reporting normal LV function, EF 55-60%, moderate concentric left ventricular hypertrophy. Denies chest pain, palpitations or shortness of breath. Denies focal deficits, lightheadedness or dizziness. 10/06/2018 preliminary blood cultures negative, urine culture reporting E. coli. Maintained on Rocephin IV. Complaints of difficulty voiding, urinary retention. Voided 200ml with post void residual of 250. Afebrile, normal WBC. Renal function improving, creatinine 1.35. No further urinary retention as per post void residuals, voiding without difficulty. Denies abdominal/suprapubic/flank pain. Afebrile. Creatinine improved, down to 0.85 Significant clinical improvement. Patient is being discharged home today in a stable condition with guarded prognosis. Exam GENERAL: Alert and oriented 3, no acute distress CARDIOVASCULAR: S1, S2 muffled. No murmur RESPIRATION: Breath sounds diminished in the bases. No rhonchi or crackles. ABDOMEN: Soft, nontender . No guarding. no masses palpable. Bowel sounds heard. NERVOUS SYSTEM: No focal deficits. The impression and plan of care has been dictated as directed. : I performed a history and examination of this patient, discussed the same with the dictator. I agree with the dictator's note ,documented as a scribe. Any additional findings or plans will be noted. Time taken: 35 minutes Patient Condition at Discharge: Stable Plan - Discharge Summary Discharge Rx Participant: No New Discharge Prescriptions: New Cefuroxime Axetil [Ceftin] 500 mg PO BID #10 tab Tamsulosin [Flomax] 0.4 mg PO PC-BRKFST #30 cap.er.24h Continue Zafirlukast [Accolate] 20 mg PO BID Potassium Chloride ER [K-Dur 10] 10 meq PO BID Gabapentin [Neurontin] 300 mg PO TID Spironolactone [Aldactone] 25 mg PO BID Simvastatin [Zocor] 20 mg PO HS Niacin 500 mg PO DAILY Aspirin EC [Ecotrin] 325 mg PO BID Ranitidine HCl [Zantac] 150 mg PO BID Mupirocin [Mupirocin 2%] 1 applic TOPICAL DAILY HYDROcodone/APAP 10-325MG [[place] 10-325] 1 tab PO TID PRN PRN Reason: Pain Carvedilol Phosphate [Coreg Cr] 10 mg PO DAILY Discharge Medication List Aspirin EC [Ecotrin] 325 mg PO BID 10/04/18 [History] Carvedilol Phosphate [Coreg Cr] 10 mg PO DAILY 10/04/18 [History] Gabapentin [Neurontin] 300 mg PO TID 10/04/18 [History] HYDROcodone/APAP 10-325MG [[place] 10-325] 1 tab PO TID PRN 10/04/18 [History] Mupirocin [Mupirocin 2%] 1 applic TOPICAL DAILY 10/04/18 [History] Niacin 500 mg PO DAILY 10/04/18 [History] Potassium Chloride ER [K-Dur 10] 10 meq PO BID 10/04/18 [History] Ranitidine HCl [Zantac] 150 mg PO BID 10/04/18 [History] Simvastatin [Zocor] 20 mg PO HS 10/04/18 [History] Spironolactone [Aldactone] 25 mg PO BID 10/04/18 [History] Zafirlukast [Accolate] 20 mg PO BID 10/04/18 [History] Cefuroxime Axetil [Ceftin] 500 mg PO BID #10 tab 10/07/18 [Rx] Tamsulosin [Flomax] 0.4 mg PO PC-BRKFST #30 cap.er.24h 10/07/18 [Rx] Follow up Appointment(s)/Referral(s): [facility] [NON-STAFF] - Kyle Amado MD [Primary Care Provider] - 10/14/18 9:00 am Ambulatory/Diagnostic Orders: Complete Blood Count w/diff [LAB.AMB] Time Frame: 3 Days, Location: None Selected Patient Instructions/Handouts: Urinary Tract Infection in Men (DC) Activity/Diet/Wound Care/Special Instructions: Lasix temporarily on hold secondary to renal function, reevaluate at follow-up visit with PCP for further recommendations. Discharge Disposition: HOME SELF-CARE
--- NOTE | 2018-10-09 11:10 | DS ---
DISCHARGE SUMMARY ADDENDUM: Degenerative disc disease of the lumbar spine, severe osteoarthritis of the knees, as reasons patient is on chronic pain medications. MMODL / IJN: [id number] /
== END 2018-10-07 14:38 | disposition home health service (06) | DRG 690 ==
LOC: EC 09:31 → 4MS4W 13:07 → 4SSUR 10-06 17:38 → OBSVTOIN 10-06 20:29
PROVIDERS: ADMIT Family Medicine; ATTEND Family Medicine
DX: N39.0 Urinary tract infection, site not specified (principal); I50.32 Chronic diastolic (congestive) heart failure; N17.9 Acute kidney failure, unspecified; B96.20 Unspecified Escherichia coli [E. coli] as the cause of diseases classified elsewhere; E78.5 Hyperlipidemia, unspecified; G89.29 Other chronic pain; I11.0 Hypertensive heart disease with heart failure; J44.9 Chronic obstructive pulmonary disease, unspecified; K21.9 Gastro-esophageal reflux disease without esophagitis; E11.40 Type 2 diabetes mellitus with diabetic neuropathy, unspecified; M51.36 Other intervertebral disc degeneration, lumbar region; M17.0 Bilateral primary osteoarthritis of knee; Z79.891 Long term (current) use of opiate analgesic; Z82.49 Family history of ischemic heart disease and other diseases of the circulatory system; Z79.82 Long term (current) use of aspirin; Z79.899 Other long term (current) drug therapy; Z82.5 Family history of asthma and other chronic lower respiratory diseases; Z87.891 Personal history of nicotine dependence; R33.9 Retention of urine, unspecified
CPT/HCPCS: 36415; 51798; 74018; 76770; 80048; 80053; 81001; 85025; 87040; 87077; 87086; 87186; 93306; 96360; 96361; 99284

== ENCOUNTER 2020-06-15 08:55 | Emergency (ER) | payer MEDICARE ==
[2020-06-15 09:06] VITALS: BP 156/54; PULSE 67; RESP 18; TEMP 98.8
--- NOTE | 2020-06-15 09:49 | XR ---
EXAMINATION TYPE: XR tibia fibula RT DATE OF EXAM: 06/15/2020 CLINICAL HISTORY: Pain, large hematoma after injury 5 days ago. TECHNIQUE: Two views of the right leg are obtained. COMPARISON: None. FINDINGS: There is no acute fracture or dislocation seen in the right tibia or fibula. Mild to moder ate nearing medial tibiofemoral and patellofemoral compartments is present. Right ankle joint appears within normal limits. [id number] diffuse subcutaneous edema with anterior soft tissue prominen ce and hyperdensity possible calcifications could reflect product of venous stasis or soft tissue ph leboliths. IMPRESSION: As above.
--- NOTE | 2020-06-15 10:16 | ED ---
Lower Extremity Injury HPI - General Chief Complaint: Extremity Injury, Lower Stated Complaint: HEMATOMA R STREET FROM A FALL LAST WEEK Time Seen by Provider: 06/15/20 09:05 Source: patient Mode of arrival: wheelchair Limitations: no limitations - History of Present Illness Initial Comments: Patient is a 69-year-old male with past medical history of lymphedema, diabetes presents emergency department with a hematoma to his right street. The patient states on Thursday he was attempting to get out of the bathtub when he slipped and fell. Patient hit his right street on the bathtub. States that he has been resting the leg offer he continues to have pain and swelling. He takes [place] at home for the pain. Sure Patient requesting drainage of the hematoma. He does not take any blood thinners. Denies any additional injuries. No head trauma or loss of consciousness. No other alleviating, precipitating or modifying factors - Related Data Home Medications Medication Instructions Recorded Confirmed Aspirin EC [Ecotrin] 325 mg PO BID 10/04/18 06/15/20 Gabapentin [Neurontin] 300 mg PO TID 10/04/18 06/15/20 HYDROcodone/APAP 10-325MG [[place] 1 tab PO TID 10/04/18 06/15/20 10-325] Niacin 500 mg PO DAILY 10/04/18 06/15/20 Simvastatin [Zocor] 20 mg PO HS 10/04/18 06/15/20 Spironolactone [Aldactone] 50 mg PO BID 10/04/18 06/15/20 Zafirlukast [Accolate] 20 mg PO BID 10/04/18 06/15/20 carvediloL phosphate [Coreg Cr] 10 mg PO DAILY 10/04/18 06/15/20 Ciprofloxacin HCl [Cipro] 500 mg PO Q12HR 06/15/20 06/15/20 Famotidine [Pepcid] 40 mg PO DAILY 06/15/20 06/15/20 sitaGLIPtin PHOS/metFORMIN HCL 1 tab PO BID 06/15/20 06/15/20 [Janumet 50-1,000 mg Tablet] Previous Rx's Medication Instructions Recorded Tamsulosin [Flomax] 0.4 mg PO PC-BRKFST #30 cap.er.24h 10/07/18 Allergies Allergy/AdvReac Type Severity Reaction Status Date / Time No Known Allergies Allergy Verified 06/15/20 09:52 Review of Systems ROS Statement: Those systems with pertinent positive or pertinent negative responses have been documented in the HPI. ROS Other: All systems not noted in ROS Statement are negative. Past Medical History Past Medical History: Asthma, Chest Pain / Angina, Heart Failure, COPD, Diabetes Mellitus, GERD/Reflux, Hyperlipidemia, Hypertension Additional Past Medical History / Comment(s): Chronic back pain, L leg edema, poor circulation bilateral legs/especially left, NIDDM type II, neuropathy bilateral hands/feet. History of Any Multi-Drug Resistant Organisms: None Reported Past Surgical History: Ear Surgery, Tonsillectomy Additional Past Surgical History / Comment(s): Lesion removed from R ear, colonoscopy Past Anesthesia/Blood Transfusion Reactions: No Reported Reaction Past Psychological History: No Psychological Hx Reported Smoking Status: Former smoker Past Alcohol Use History: None Reported Past Drug Use History: None Reported - Past Family History Mother Family Medical History: COPD, Coronary Artery Disease (CAD), Myocardial Infarction (VT) Additional Family Medical History / Comment(s): Pt does not know at what age mother had VT. She was a smoker. Father Family Medical History: COPD, Coronary Artery Disease (CAD), Myocardial Infarction (VT) Additional Family Medical History / Comment(s): Father had VT but pt does not know at what age. Father was a smoker. General Exam Limitations: no limitations General appearance: alert, in no apparent distress Head exam: Present: atraumatic, normocephalic, normal inspection Extremities exam: Present: pedal edema, calf tenderness, other (hematoma right anterior mid calf measuring 6 x cm with surrouding ecchymosis. No posterior calf tenderness. 2+ DP and PT pulses. cap refill <2 seconds. Intact sensation over the medial, lateral and dorsal b/l le. Patient has 4+ lymphedema which is chronic. Left leg wrapped with kerlix. ) Course Vital Signs 06/15/20 09:03 Temperature 98.8 F Pulse Rate 67 Respiratory 18 Rate Blood Pressure 156/54 O2 Sat by Pulse 100 Oximetry Medical Decision Making - Medical Decision Making Upon the patient is placed into room 19. A thorough history and physical exam is performed. Patient does have intact sensation and pulses. Patient has chronic lower extremity swelling. No open abrasions or lacerations. No signs of cellulitis. Patient sent over for an x-ray of his right tib-fib area which demonstrates no acute fracture dislocation. Mild to moderate nearing medial tibial femoral and patellofemoral compartments. Right ankle joint within normal limits. Mild to moderate diffuse subcutaneous edema with anterior soft tissue prominence and hyperdensity. Results are discussed with the patient. His injury did happen 5 days ago, I see no concerning signs of compartment syndrome. Patient notified that drainage is not appropriate management of the hematoma. Patient placed in an Tuan wrap. Instructed to continue to rest, ice and elevate the extremity. Take his pain medication for pain control. Return to the emergency room for any new or worsening symptoms. Follow up with his primary care doctor in 2-4 days. Patient understood this. He was given written and verbal discharge instructions and discharged home in stable condition Disposition Clinical Impression: Hematoma of skin Disposition: HOME SELF-CARE Condition: Stable Instructions (If sedation given, give patient instructions): Hematoma (ED) Additional Instructions: Please follow-up with your primary care doctor in 2-4 days. Return to the emergency room for any new or worsening symptoms. Rest, ice and elevate your right leg. Wear the tuan bandage for compression. Is patient prescribed a controlled substance at d/c from ED?: No Referrals: Kyle Amado MD [Primary Care Provider] - 1-2 days Time of Disposition: 10:16
== END 2020-06-15 10:26 | disposition home or self-care (01) ==
LOC: EC 08:55
DX: S80.11XA Contusion of right lower leg, initial encounter (principal); E11.40 Type 2 diabetes mellitus with diabetic neuropathy, unspecified; I11.0 Hypertensive heart disease with heart failure; I50.9 Heart failure, unspecified; K21.9 Gastro-esophageal reflux disease without esophagitis; E78.5 Hyperlipidemia, unspecified; Z79.84 Long term (current) use of oral hypoglycemic drugs; Z79.82 Long term (current) use of aspirin; Z79.899 Other long term (current) drug therapy; Z87.891 Personal history of nicotine dependence; W01.0XXA Fall on same level from slipping, tripping and stumbling without subsequent striking against object, initial encounter; Y92.002 Bathroom of unspecified non-institutional (private) residence as the place of occurrence of the external cause; Y93.E1 Activity, personal bathing and showering
CPT/HCPCS: 99283

== ENCOUNTER → 2021-04-11 | Outpatient (CLI) | payer MEDICARE ==
[~2021-04-11] MED LIST changes: -REGADENOSON 0.4 MG/5 ML SYRINGE IV ONE; +REGADENOSON 0.4 MG/5 ML SYRINGE IV PRN
--- NOTE | 2021-04-11 11:00 | ECHOF ---
Referral Reason:R94.31 abn ekg MEASUREMENTS -------- HEIGHT: 182.9 cm WEIGHT: 124.3 kg BP: RVIDd: 3.5 cm (< 3.3) IVSd: 1.3 cm (0.6 - 1.1) LVIDd: 4.7 cm (3.9 - 5.3) LVPWd: 1.8 cm (0.6 - 1.1) IVSs: 1.5 cm LVIDs: 3.2 cm LVPWs: 2.0 cm LA Diam: 3.6 cm (2.7 - 3.8) Ao Diam: 3.8 cm (2.0 - 3.7) AV Cusp: 2.5 cm (1.5 - 2.6) MV E Joel: 0.85 m/s MV DecT: 165 ms MV A Joel: 0.38 m/s MV E/A Ratio: 2.22 RAP: 5.00 mmHg RVSP: 14.99 mmHg FINDINGS -------- Sinus rhythm. Undetermined rhythm. Morbid Obesity The left ventricular size is normal. There is mild concentric left ventricular hypertrophy. Overa ll left ventricular systolic function is low-normal with, an EF between 50 - 55 %. The right ventricle is normal in size. The left atrial size is normal. The right atrial size is normal. The aortic valve was not well visualized. Mild mitral regurgitation is present. The tricuspid valve was not well visualized. The pulmonic valve was not well visualized. Echo free space represents a pericardial fat pad. CONCLUSIONS -------- 1. Morbid Obesity 2. The left ventricular size is normal. 3. There is mild concentric left ventricular hypertrophy. 4. Overall left ventricular systolic function is low-normal with, an EF between 50 - 55 %. 5. The right ventricle is normal in size. 6. The left atrial size is normal. 7. The right atrial size is normal. 8. The aortic valve was not well visualized. 9. Mild mitral regurgitation is present. 10. The tricuspid valve was not well visualized. 11. The pulmonic valve was not well visualized. 12. Echo free space represents a pericardial fat pad. FRAMING CARPENTER: Shahla Merritt, DONNA
--- NOTE | 2021-04-11 13:42 | NM ---
EXAMINATION TYPE: NM stress lexiscan cardiolite DATE OF EXAM: 04/11/2021 COMPARISON: NONE HISTORY: R94.31 abn ekg TECHNIQUE: After the intravenous administration of 9.6 mCi Tc 99m Sestamibi - Cardiolite resting SPE CT images acquired 45 minutes post injection. The patient received 0.4mg Lexiscan, 25.5 mCi Tc 99m Sestamibi - Stress images obtained [address] injection FINDINGS: Review of stress and rest SPECT images demonstrates decreased perfusion on stress images involving th e cardiac apex and inferior wall compatible with stress-induced ischemia. Gated analysis shows normal wall motion with an estimated left ventricular ejection fraction of 64 %. IMPRESSION: decreased perfusion on stress images involving the cardiac apex and inferior wall compatible with str ess-induced ischemia.
--- NOTE | 2021-04-11 15:50 | EST ---
EXERCISE STRESS AGE: 70 SEX: M HT: 6'4" WT: 274 lbs. PROTOCOL: Lexiscan STAGE: NA DURATION OF EXERCISE: 6 minutes HEART RATE REST: 81 BLOOD PRESSURE REST: 181/75 MAXIMUM HEART RATE ACHIEVED: 85 MAXIMUM BLOOD PRESSURE: 181/75 85% MPHR: 126 100% MPHR: 148 METS: NA INDICATIONS: Shortness of breath. Baseline EKG shows sinus rhythm with right bundle branch block and PVCs. Patient was given intravenous Lexiscan as per protocol, did not have chest pain or diagnostic ST- segment depression. CONCLUSIONS: 1. Negative stress test by EKG criteria. 2. Cardiolite portion of the stress test will be reported separately. MMODL / IJN: [id number] /
== END | disposition home or self-care (01) ==
LOC: RADNMMAIN 08:00
PROVIDERS: ATTEND Family Medicine
DX: I34.0 Nonrheumatic mitral (valve) insufficiency (principal); I51.7 Cardiomegaly; E66.01 Morbid (severe) obesity due to excess calories
CPT/HCPCS: 93017; 78452; C8929; A9500; J2785; Q9950; 93306

== ENCOUNTER 2021-11-18 19:12 | Inpatient (IN) | payer MEDICARE ==
--- NOTE | 2021-11-18 20:06 | ED ---
General Adult HPI - General Chief complaint: Weakness Stated complaint: UTI Time Seen by Provider: 11/18/21 19:21 Source: EMS Mode of arrival: EMS Limitations: altered mental status - History of Present Illness Initial comments: Dictation was produced using [employer] dictation software. please excuse any grammatical, word or spelling errors. Chief Complaint: 71-year-old male presents to the ER for shortness of breath History of Present Illness: 71-year-old male patient is a poor historian. Patient reports that he is here for shortness of breath. According to nurse received report from EMS patient had a fall and initially refused to come to the emergency department. Several minutes later he called EMS back and requested to be brought to the ER. Patient states is here for shortness of breath. According to nurse patient's currently being treated for UTI with increased weakness. He states that he did fall today. He felt weak and tried to stand up and fell forward. Patient denies any injury from that fall. Patient denies any fever. Denies any runny nose or chest pain. Denies any sore throat. The ROS documented in this emergency department record has been reviewed and confirmed by me. Those systems with pertinent positive or negative responses have been documented in the HPI. All other systems are other negative and/or noncontributory. PHYSICAL EXAM: General Impression: Alert and oriented x3, not in acute distress HEENT: Normocephalic atraumatic, extra-ocular movements intact, pupils equal and reactive to light bilaterally, mucous membranes moist. Cardiovascular: Heart regular rate and rhythm Chest: Able to complete full sentences, no retractions, no tachypnea Abdomen: abdomen soft, non-tender, non-distended, no organomegaly Musculoskeletal: Pulses present and equal in all extremities, nonpitting edema to the bilateral lower extremities Motor: no focal deficits noted Neurological: CN II-XII grossly intact, no focal motor or sensory deficits noted Skin: Intact with no visualized rashes Psych: Normal affect and mood ED course: 71-year-old well-appearing male presents to the emergency Department chief complaint of shortness of breath. According to EMS he suffered a fall today and is currently being treated for UTI and generalized weakness. Vital signs upon arrival are within acceptable limits. Patient not dyspneic and not hypoxic. EKG interpretation: Ventricular rate 62, A. fib, QRS 146, QTC is 382. No [place] prolongation, no QTC prolongation, no ST or T-wave changes noted. No old EKG for comparison. Overall, this EKG is nonspecific. There does appear to be a stress EKG that has comparable appearance to today's EKG. Stress EKG was performed on 04/03/2021 Computed tomography scan of brain shows no acute processes. Chest x-ray shows no acute processes. Laboratory evaluation obtained. CBC, coag panel is unremarkable. No left acidosis. Urinalysis shows urinary tract infection. Disposition options were discussed with patient. Patient has a poor social situ ation. He has no assistance at home and is too weak to take care of himself. He does have a sibling and [id number] at the bedside over they're unable to assist patient. Patient be admitted to Dr. Amado. Patient given 1 g ceftriaxone IV fluids. - Related Data Home Medications Medication Instructions Recorded Confirmed Gabapentin [Neurontin] 300 mg PO TID 10/04/18 11/18/21 HYDROcodone/APAP 10-325MG [[place] 1 tab PO TID PRN 10/04/18 11/18/21 10-325] Simvastatin [Zocor] 20 mg PO HS 10/04/18 11/18/21 Spironolactone [Aldactone] 25 mg PO DAILY 10/04/18 11/18/21 Famotidine [Pepcid] 40 mg PO DAILY 06/15/20 11/18/21 sitaGLIPtin PHOS/metFORMIN HCL 1 tab PO BID 06/15/20 11/18/21 [Janumet 50-1,000 mg Tablet] Aspirin EC [Ecotrin Low Dose] 81 mg PO DAILY 11/18/21 11/18/21 Cephalexin [Keflex] 500 mg PO BID 11/18/21 11/18/21 Furosemide [Lasix] 20 mg PO TID 11/18/21 11/18/21 Losartan [Cozaar] 25 mg PO DAILY 11/18/21 11/18/21 Niacin [Niacin ER] 500 mg PO DAILY 11/18/21 11/18/21 Tamsulosin [Flomax] 0.4 mg PO DAILY 11/18/21 11/18/21 Allergies Allergy/AdvReac Type Severity Reaction Status Date / Time No Known Allergies Allergy Verified 11/18/21 21:40 Review of Systems ROS Statement: Those systems with pertinent positive or pertinent negative responses have been documented in the HPI. ROS Other: All systems not noted in ROS Statement are negative. Past Medical History Past Medical History: Asthma, Chest Pain / Angina, Heart Failure, COPD, Diabetes Mellitus, GERD/Reflux, Hyperlipidemia, Hypertension Additional Past Medical History / Comment(s): Chronic back pain, L leg edema, poor circulation bilateral legs/especially left, NIDDM type II, neuropathy bilateral hands/feet. History of Any Multi-Drug Resistant Organisms: None Reported Past Surgical History: Ear Surgery, Tonsillectomy Additional Past Surgical History / Comment(s): Lesion removed from R ear, colonoscopy Past Anesthesia/Blood Transfusion Reactions: No Reported Reaction Past Psychological History: No Psychological Hx Reported Smoking Status: Former smoker Past Alcohol Use History: None Reported Past Drug Use History: None Reported - Past Family History Mother Family Medical History: COPD, Coronary Artery Disease (CAD), Myocardial Infarction (MA) Additional Family Medical History / Comment(s): Pt does not know at what age mother had MA. She was a smoker. Father Family Medical History: COPD, Coronary Artery Disease (CAD), Myocardial Infarction (MA) Additional Family Medical History / Comment(s): Father had MA but pt does not know at what age. Father was a smoker. General Exam Limitations: altered mental status Course Vital Signs 11/18/21 19:17 Temperature 98.5 F Pulse Rate 58 L Respiratory 16 Rate Blood Pressure 112/47 O2 Sat by Pulse 96 Oximetry Medical Decision Making - Lab Data Result diagrams: 11/18/21 21:10 Lab Results 11/18/21 11/18/21 11/18/21 Range/Units 21:10 21:10 21:10 WBC 6.7 (3.8-10.6) k/uL RBC 3.09 L (4.30-5.90) m/uL Hgb 9.2 L (13.0-17.5) gm/dL Hct 26.8 L (39.0-53.0) % MCV 86.8 (80.0-100.0) fL MCH 29.8 (25.0-35.0) pg MCHC 34.4 (31.0-37.0) g/dL RDW 13.4 (11.5-15.5) % Plt Count 164 (150-450) k/uL MPV 7.2 Neutrophils % 89 % Lymphocytes % 3 % Monocytes % 6 % Eosinophils % 0 % Basophils % 1 % Neutrophils # 6.0 (1.3-7.7) k/uL Lymphocytes # 0.2 L (1.0-4.8) k/uL Monocytes # 0.4 (0-1.0) k/uL Eosinophils # 0.0 (0-0.7) k/uL Basophils # 0.0 (0-0.2) k/uL PT 10.8 (9.0-12.0) sec INR 1.0 (<1.2) APTT 26.8 (22.0-30.0) sec Plasma Lactic Acid Td (0.7-2.0) mmol/L NT-Pro-B Natriuret Pep pg/mL Urine Color Yellow Urine Appearance Cloudy (Clear) Urine pH 5.5 (5.0-8.0) Ur Specific [place] 1.015 (1.001-1.035) Urine Protein Trace H (Negative) Urine Glucose (UA) Trace H (Negative) Urine Ketones Negative (Negative) Urine Blood Trace H (Negative) Urine Nitrite Negative (Negative) Urine Bilirubin Negative (Negative) Urine Urobilinogen <2.0 (<2.0) mg/dL Ur Leukocyte Esterase Large H (Negative) Urine RBC 7 H (0-5) /hpf Urine WBC >182 H (0-5) /hpf Urine WBC Clumps Many H (None) /hpf Ur Squamous Epith Cells <1 (0-4) /hpf Urine Bacteria Many H (None) /hpf Hyaline Casts 4 H (0-2) /lpf Urine Mucus Rare H (None) /hpf 11/18/21 11/18/21 Range/Units 21:10 21:10 WBC (3.8-10.6) k/uL RBC (4.30-5.90) m/uL Hgb (13.0-17.5) gm/dL Hct (39.0-53.0) % MCV (80.0-100.0) fL MCH (25.0-35.0) pg MCHC (31.0-37.0) g/dL RDW (11.5-15.5) % Plt Count (150-450) k/uL MPV Neutrophils % % Lymphocytes % % Monocytes % % Eosinophils % % Basophils % % Neutrophils # (1.3-7.7) k/uL Lymphocytes # (1.0-4.8) k/uL Monocytes # (0-1.0) k/uL Eosinophils # (0-0.7) k/uL Basophils # (0-0.2) k/uL PT (9.0-12.0) sec INR (<1.2) APTT (22.0-30.0) sec Plasma Lactic Acid Td 1.0 (0.7-2.0) mmol/L NT-Pro-B Natriuret Pep 1500 pg/mL Urine Color Urine Appearance (Clear) Urine pH (5.0-8.0) Ur Specific [place] (1.001-1.035) Urine Protein (Negative) Urine Glucose (UA) (Negative) Urine Ketones (Negative) Urine Blood (Negative) Urine Nitrite (Negative) Urine Bilirubin (Negative) Urine Urobilinogen (<2.0) mg/dL Ur Leukocyte Esterase (Negative) Urine RBC (0-5) /hpf Urine WBC (0-5) /hpf Urine WBC Clumps (None) /hpf Ur Squamous Epith Cells (0-4) /hpf Urine Bacteria (None) /hpf Hyaline Casts (0-2) /lpf Urine Mucus (None) /hpf Disposition Clinical Impression: UTI (urinary tract infection), Gravely disabled Disposition: ADMITTED IP TO THIS [facility] Condition: Fair Referrals: Kyle Amado MD [Primary Care Provider] - 1-2 days Decision Time: 22:28
[2021-11-18 21:31] LABS: Basophils % (A) 1 %; Eosinophils % (A) 0 %; HCT 26.8 % (39.0-53.0); HGB 9.2 gm/dL (13.0-17.5); Lymphocytes # (A) 0.2 k/uL (1.0-4.8); Lymphocytes % (A) 3 %; MCH 29.8 pg (25.0-35.0); MCHC 34.4 g/dL (31.0-37.0); MCV 86.8 fL (80.0-100.0); Mean Platelet Volume 7.2; Monocytes # (A) 0.4 k/uL (0-1.0); Monocytes % (A) 6 %; Neutrophils % (A) 89 %; Platelet Count 164 k/uL (150-450); RBC 3.09 m/uL (4.30-5.90); RDW 13.4 % (11.5-15.5); WBC 6.7 k/uL (3.8-10.6)
--- NOTE | 2021-11-18 21:51 | XR ---
EXAMINATION TYPE: XR chest 2V DATE OF EXAM: 11/18/2021 COMPARISON: 10/20/2014 HISTORY: Short of breath TECHNIQUE: FINDINGS: Heart is normal. Lungs are clear of infiltrate. No pleural effusion. No heart failure. Ther e are chest leads. Bony thorax is intact. IMPRESSION: No active cardiopulmonary disease. Normal heart. No change.
[2021-11-18 21:54] LABS: Appearance,Urine Cloudy (Clear); Bacteria,Urine Many /hpf; Bilirubin,Urine Negative (Negative); Blood,Urine Trace (Negative); Color,Urine Yellow; Glucose,Urine (UA) Trace (Negative); Hyaline Casts,Urine 4 /lpf (0-2); Ketones,Urine Negative (Negative); Leukocyte Esterase,Urine Large (Negative); Mucus,Urine Rare /hpf; Nitrite,Urine Negative (Negative); PH, Urine 5.5 (5.0-8.0); Protein,Urine Trace (Negative); RBC,Urine 7 /hpf (0-5); Specific Gravity,Urine 1.015 (1.001-1.035); Squamous Epithelial Cell,Urine <1 /hpf (0-4); Urobilinogen,Urine <2.0 mg/dL (<2.0); WBC,Urine >182 /hpf (0-5)
[2021-11-18 21:56] LABS: Calcium 8.3 mg/dL (8.4-10.2); Magnesium 1.4 mg/dL (1.6-2.3)
[2021-11-18 22:02] LABS: Partial Thromboplastin Time 26.8 sec (22.0-30.0); Prothrombin Time 10.8 sec (9.0-12.0)
--- NOTE | 2021-11-18 22:04 | CT ---
EXAMINATION TYPE: CT brain wo con DATE OF EXAM: 11/18/2021 COMPARISON: None HISTORY: fall CT DLP: 1151.4 mGycm Automated exposure control for dose reduction was used. Ventricles have normal size. There is no mass effect or midline shift. There is no evidence of intrac ranial hemorrhage. There is some cerebral cortical atrophy. Calvarium is intact. Skull base is intact . There is minimal mucosal thickening in the ethmoid air cells. IMPRESSION: Mild atrophy. No acute intracranial abnormality
[2021-11-18] MEDS ORDERED: cefTRIAXone IN SWFI 1,000 MG/10 ML SYRINGE IVP STA (22:18)
[2021-11-18] MEDS ORDERED: NALOXONE 0.4 MG/ML 1 ML VIAL IV PRN (22:25)
[2021-11-18] MEDS ORDERED: ONDANSETRON 4 MG/2 ML VIAL IVP PRN (22:25)
[2021-11-18 22:30] LABS: Potassium 6.3 mmol/L (3.5-5.1)
[2021-11-18] MEDS ORDERED: SODIUM CHLORIDE 0.9% 1,000 ML IV SCH (22:30)
[2021-11-18] MEDS ORDERED: DEXTROSE 50% SYRINGE 50 ML IVP ONE (23:10)
[2021-11-18] MEDS ORDERED: CALCIUM GLUCONATE IN NACL 2 GM in SALINE 1 100ML.BAG IVPB ONE (23:10)
[2021-11-18] MEDS ORDERED: SODIUM CHLORIDE 0.9% 1,000 ML IV STA (23:10)
[2021-11-18] MEDS ORDERED: ALBUTEROL NEB (CONC) 2.5 MG/0.5 ML INHALATION ONE (23:10)
[2021-11-18] MEDS ORDERED: INSULIN REGULAR 100 UNIT/ML VIAL (IV) IV ONE (23:10)
[2021-11-18] MEDS ORDERED: CALCIUM GLUCONATE IN NACL 1 GM in SALINE 1 100ML.BAG IVPB ONE (23:10)
--- NOTE | 2021-11-18 23:18 | ED ---
Medical Decision Making - Medical Decision Making patient has critical electrolyte derangement. Spoke with Dr. Sood, the restorative coordinator who is agreeable for ICU admission for this patient. - Lab Data Result diagrams: 11/18/21 21:10 11/18/21 21:10 Lab Results 11/18/21 11/18/21 11/18/21 Range/Units 21:10 21:10 21:10 WBC 6.7 (3.8-10.6) k/uL RBC 3.09 L (4.30-5.90) m/uL Hgb 9.2 L (13.0-17.5) gm/dL Hct 26.8 L (39.0-53.0) % MCV 86.8 (80.0-100.0) fL MCH 29.8 (25.0-35.0) pg MCHC 34.4 (31.0-37.0) g/dL RDW 13.4 (11.5-15.5) % Plt Count 164 (150-450) k/uL MPV 7.2 Neutrophils % 89 % Lymphocytes % 3 % Monocytes % 6 % Eosinophils % 0 % Basophils % 1 % Neutrophils # 6.0 (1.3-7.7) k/uL Lymphocytes # 0.2 L (1.0-4.8) k/uL Monocytes # 0.4 (0-1.0) k/uL Eosinophils # 0.0 (0-0.7) k/uL Basophils # 0.0 (0-0.2) k/uL PT 10.8 (9.0-12.0) sec INR 1.0 (<1.2) APTT 26.8 (22.0-30.0) sec Sodium (137-145) mmol/L Potassium (3.5-5.1) mmol/L Chloride (98-107) mmol/L Carbon Dioxide (22-30) mmol/L Anion Gap mmol/L BUN (9-20) mg/dL Creatinine (0.66-1.25) mg/dL Est GFR (CKD-EPI)AfAm (>60 ml/min/1.73 sqM) Est GFR (CKD-EPI)NonAf (>60 ml/min/1.73 sqM) Glucose (74-99) mg/dL Plasma Lactic Acid Td (0.7-2.0) mmol/L Calcium (8.4-10.2) mg/dL Magnesium (1.6-2.3) mg/dL NT-Pro-B Natriuret Pep pg/mL Urine Color Yellow Urine Appearance Cloudy (Clear) Urine pH 5.5 (5.0-8.0) Ur Specific [place] 1.015 (1.001-1.035) Urine Protein Trace H (Negative) Urine Glucose (UA) Trace H (Negative) Urine Ketones Negative (Negative) Urine Blood Trace H (Negative) Urine Nitrite Negative (Negative) Urine Bilirubin Negative (Negative) Urine Urobilinogen <2.0 (<2.0) mg/dL Ur Leukocyte Esterase Large H (Negative) Urine RBC 7 H (0-5) /hpf Urine WBC >182 H (0-5) /hpf Urine WBC Clumps Many H (None) /hpf Ur Squamous Epith Cells <1 (0-4) /hpf Urine Bacteria Many H (None) /hpf Hyaline Casts 4 H (0-2) /lpf Urine Mucus Rare H (None) /hpf Influenza Type A (PCR) (Not Detectd) Influenza Type B (PCR) (Not Detectd) RSV (PCR) (Not Detectd) SARS-CoV-2 (PCR) (Not Detectd) 11/18/21 11/18/21 11/18/21 Range/Units 21:10 21:10 21:10 WBC (3.8-10.6) k/uL RBC (4.30-5.90) m/uL Hgb (13.0-17.5) gm/dL Hct (39.0-53.0) % MCV (80.0-100.0) fL MCH (25.0-35.0) pg MCHC (31.0-37.0) g/dL RDW (11.5-15.5) % Plt Count (150-450) k/uL MPV Neutrophils % % Lymphocytes % % Monocytes % % Eosinophils % % Basophils % % Neutrophils # (1.3-7.7) k/uL Lymphocytes # (1.0-4.8) k/uL Monocytes # (0-1.0) k/uL Eosinophils # (0-0.7) k/uL Basophils # (0-0.2) k/uL PT (9.0-12.0) sec INR (<1.2) APTT (22.0-30.0) sec Sodium 114 L* (137-145) mmol/L Potassium 6.3 H* (3.5-5.1) mmol/L Chloride 87 L (98-107) mmol/L Carbon Dioxide 17 L (22-30) mmol/L Anion Gap 10 mmol/L BUN 43 H (9-20) mg/dL Creatinine 2.73 H (0.66-1.25) mg/dL Est GFR (CKD-EPI)AfAm 26 (>60 ml/min/1.73 sqM) Est GFR (CKD-EPI)NonAf 22 (>60 ml/min/1.73 sqM) Glucose 104 H (74-99) mg/dL Plasma Lactic Acid Td 1.0 (0.7-2.0) mmol/L Calcium 8.3 L (8.4-10.2) mg/dL Magnesium 1.4 L (1.6-2.3) mg/dL NT-Pro-B Natriuret Pep 1500 pg/mL Urine Color Urine Appearance (Clear) Urine pH (5.0-8.0) Ur Specific [place] (1.001-1.035) Urine Protein (Negative) Urine Glucose (UA) (Negative) Urine Ketones (Negative) Urine Blood (Negative) Urine Nitrite (Negative) Urine Bilirubin (Negative) Urine Urobilinogen (<2.0) mg/dL Ur Leukocyte Esterase (Negative) Urine RBC (0-5) /hpf Urine WBC (0-5) /hpf Urine WBC Clumps (None) /hpf Ur Squamous Epith Cells (0-4) /hpf Urine Bacteria (None) /hpf Hyaline Casts (0-2) /lpf Urine Mucus (None) /hpf Influenza Type A (PCR) (Not Detectd) Influenza Type B (PCR) (Not Detectd) RSV (PCR) (Not Detectd) SARS-CoV-2 (PCR) (Not Detectd) 11/18/21 Range/Units 21:10 WBC (3.8-10.6) k/uL RBC (4.30-5.90) m/uL Hgb (13.0-17.5) gm/dL Hct (39.0-53.0) % MCV (80.0-100.0) fL MCH (25.0-35.0) pg MCHC (31.0-37.0) g/dL RDW (11.5-15.5) % Plt Count (150-450) k/uL MPV Neutrophils % % Lymphocytes % % Monocytes % % Eosinophils % % Basophils % % Neutrophils # (1.3-7.7) k/uL Lymphocytes # (1.0-4.8) k/uL Monocytes # (0-1.0) k/uL Eosinophils # (0-0.7) k/uL Basophils # (0-0.2) k/uL PT (9.0-12.0) sec INR (<1.2) APTT (22.0-30.0) sec Sodium (137-145) mmol/L Potassium (3.5-5.1) mmol/L Chloride (98-107) mmol/L Carbon Dioxide (22-30) mmol/L Anion Gap mmol/L BUN (9-20) mg/dL Creatinine (0.66-1.25) mg/dL Est GFR (CKD-EPI)AfAm (>60 ml/min/1.73 sqM) Est GFR (CKD-EPI)NonAf (>60 ml/min/1.73 sqM) Glucose (74-99) mg/dL Plasma Lactic Acid Td (0.7-2.0) mmol/L Calcium (8.4-10.2) mg/dL Magnesium (1.6-2.3) mg/dL NT-Pro-B Natriuret Pep pg/mL Urine Color Urine Appearance (Clear) Urine pH (5.0-8.0) Ur Specific [place] (1.001-1.035) Urine Protein (Negative) Urine Glucose (UA) (Negative) Urine Ketones (Negative) Urine Blood (Negative) Urine Nitrite (Negative) Urine Bilirubin (Negative) Urine Urobilinogen (<2.0) mg/dL Ur Leukocyte Esterase (Negative) Urine RBC (0-5) /hpf Urine WBC (0-5) /hpf Urine WBC Clumps (None) /hpf Ur Squamous Epith Cells (0-4) /hpf Urine Bacteria (None) /hpf Hyaline Casts (0-2) /lpf Urine Mucus (None) /hpf Influenza Type A (PCR) Not Detected (Not Detectd) Influenza Type B (PCR) Not Detected (Not Detectd) RSV (PCR) Not Detected (Not Detectd) SARS-CoV-2 (PCR) Not Detected (Not Detectd) Critical Care Time Critical Care Time: Yes Total Critical Care Time: 33 Disposition Clinical Impression: UTI (urinary tract infection), Gravely disabled Disposition: ADMITTED IP TO THIS HOSP Condition: Fair
[2021-11-19] MEDS: SODIUM POLYSTYRENE SULFONATE 15 GM/60 ML BOTTLE PO SCH (00:16)
[2021-11-19 00:53] LABS: Glucose,Whole Blood 147 mg/dL (75-99)
[2021-11-19 01:25] LABS: Glucose,Whole Blood 65 mg/dL (75-99)
[2021-11-19 04:43] LABS: Basophils % (A) 0 %; Eosinophils % (A) 0 %; HCT 25.8 % (39.0-53.0); HGB 8.7 gm/dL (13.0-17.5); Lymphocytes # (A) 0.2 k/uL (1.0-4.8); Lymphocytes % (A) 4 %; MCH 29.7 pg (25.0-35.0); MCHC 33.7 g/dL (31.0-37.0); MCV 88.2 fL (80.0-100.0); Mean Platelet Volume 6.7; Monocytes # (A) 0.4 k/uL (0-1.0); Monocytes % (A) 7 %; Neutrophils # (A) 5.3 k/uL (1.3-7.7); Neutrophils % (A) 87 %; Platelet Count 153 k/uL (150-450); RBC 2.92 m/uL (4.30-5.90); RDW 14.1 % (11.5-15.5); WBC 6.1 k/uL (3.8-10.6)
[2021-11-19 05:18] LABS: Calcium 8.2 mg/dL (8.4-10.2); Total Bilirubin 0.2 mg/dL (0.2-1.3); Total Protein 5.3 g/dL (6.3-8.2)
[2021-11-19 06:58] LABS: Glucose,Whole Blood 104 mg/dL (75-99)
[2021-11-19] MEDS ORDERED: HYDROcodone/APAP 10-325MG 1 EACH TAB PO PRN (09:50)
--- NOTE | 2021-11-19 09:56 | P.CNPUL ---
History of Present Illness Consult date: 11/19/21 Chief complaint: weakness History of present illness: This is a 71-year-old male patient, essentially poor historian who came into the emergency room because of shortness of breath. The patient was having generalized weakness and he fell at home. Initially didn't want to come into the hospital and later on he called EMS. He was brought into the ED and he was found to have significantly abnormal blood work in addition to possible UTI and for that reason the patient got treated and the patient got admitted to the intensive care unit. The patient was feeling tired and he was unable to stand up and he fell forward. Denied having any injuries to his body or skeletal system. No chills. No fever. No chest pain. No shortness of breath. The patient's initial blood work in the emergency department revealed a white cell count of 6.7 with hemoglobin 9.2, platelet count was at 164, the UA was abnormal consistent with underlying UTI with clumps of white cells, normal coagulation profile, the patient's proBNP level was 1500 with a lactic acid level of 1.0. The patient also had significant abnormalities in his electrolytes, his sodium was 114 with a potassium level of 6.3 and a chloride of 87 with a bicarb of 17 and a anion gap of 10. Creatinine was at 2.7 with a mean of 43. The patient was started on IV fluids. The patient was given 1 L normal saline bolus and he was maintained on 20 mL an hour of normal saline. Sodium levels currently is at 117 and the potassium level dropped down to 5.0 and the patient got decreased t reatment for his acute hyperkalemia with Kayexalate and calcium gluconate and insulin with D50. As such, the potassium level dropped back down to 5.0. Creatinine is down to 2.2 and the BUN is at 39. Glucose is at 104. The chest x-ray shows no acute abnormalities. The CAT scan of the brain is not showing any acute abnormalities. The patient was given IV Rocephin as an empiric antibiotic coverage. He received only 1 dose. Cultures are still pending for now. Review of Systems Constitutional: Reports daytime sleepiness, Reports fatigue Eyes: denies as per HPI, denies blurred vision, denies bulging eye, denies decreased vision, denies diplopia, denies discharge, denies dry eye, denies irritation, denies itching, denies pain, denies photophobia, denies loss of peripheral vision, denies loss of vision, denies tunnel vision/blind spots Ears: deny: decreased hearing, ear discharge, earache, tinnitus Ears, nose, mouth and throat: Reports as per HPI Breasts: absent: as per HPI, gynecomastia Cardiovascular: Reports as per HPI Respiratory: Reports as per HPI Gastrointestinal: Reports as per HPI Genitourinary: Reports as per HPI Musculoskeletal: Reports as per HPI Musculoskeletal: right: ankle swelling, absent: ankle pain, ankle stiffness Integumentary: Reports as per HPI Neurological: Reports as per HPI, Reports weakness Psychiatric: Reports as per HPI Endocrine: Reports as per HPI Hematologic/Lymphatic: Reports as per HPI Allergic/Immunologic: Reports as per HPI Past Medical History Past Medical History: Atrial Fibrillation, Asthma, Chest Pain / Angina, Heart Failure, COPD, Diabetes Mellitus, GERD/Reflux, Hyperlipidemia, Hypertension Additional Past Medical History / Comment(s): Chronic back pain, L leg edema, poor circulation bilateral legs/especially left, NIDDM type II, neuropathy bilateral hands/feet. History of Any Multi-Drug Resistant Organisms: None Reported Past Surgical History: Ear Surgery, Tonsillectomy Additional Past Surgical History / Comment(s): Lesion removed from R ear, co lonoscopy Past Anesthesia/Blood Transfusion Reactions: No Reported Reaction Past Psychological History: No Psychological Hx Reported Additional Psychological History / Comment(s): Pt resides alone. He uses a cane to ambulate. He does not own a car, he uses a cab. Smoking Status: Former smoker Past Alcohol Use History: None Reported Additional Past Alcohol Use History / Comment(s): Pt started smoking as a teen and quit in 1984. Past Drug Use History: None Reported - Past Family History Mother Family Medical History: COPD, Coronary Artery Disease (CAD), Myocardial Infarction ([place]) Additional Family Medical History / Comment(s): Pt does not know at what age mother had GA. She was a smoker. Father Family Medical History: COPD, Coronary Artery Disease (CAD), Myocardial Infarction ([place]) Additional Family Medical History / Comment(s): Father had GA but pt does not know at what age. Father was a smoker. Medications and Allergies Home Medications Medication Instructions Recorded Confirmed Type Gabapentin [Neurontin] 300 mg PO TID 10/04/18 11/18/21 History HYDROcodone/APAP 10-325MG [[place] 1 tab PO TID PRN 10/04/18 11/18/21 History 10-325] Simvastatin [Zocor] 20 mg PO HS 10/04/18 11/18/21 History Spironolactone [Aldactone] 25 mg PO DAILY 10/04/18 11/18/21 History Famotidine [Pepcid] 40 mg PO DAILY 06/15/20 11/18/21 History sitaGLIPtin PHOS/metFORMIN HCL 1 tab PO BID 06/15/20 11/18/21 History [Janumet 50-1,000 mg Tablet] Aspirin EC [Ecotrin Low Dose] 81 mg PO DAILY 11/18/21 11/18/21 History Cephalexin [Keflex] 500 mg PO BID 11/18/21 11/18/21 History Furosemide [Lasix] 20 mg PO TID 11/18/21 11/18/21 History Losartan [Cozaar] 25 mg PO DAILY 11/18/21 11/18/21 History Niacin [Niacin ER] 500 mg PO DAILY 11/18/21 11/18/21 History Tamsulosin [Flomax] 0.4 mg PO DAILY 11/18/21 11/18/21 History Allergies Allergy/AdvReac Type Severity Reaction Status Date / Time No Known Allergies Allergy Verified 11/18/21 21:40 Physical Exam Vitals: Vital Signs Temp Pulse Pulse Resp BP Pulse Ox 11/19/21 09:00 65 16 119/53 98 11/19/21 08:00 98.2 F 87 17 111/50 98 11/19/21 07:00 64 14 112/49 95 11/19/21 06:00 67 14 108/49 94 L 11/19/21 05:00 98.5 F 63 14 120/43 96 11/19/21 04:00 71 15 119/48 97 11/19/21 03:00 75 16 114/54 98 11/19/21 02:04 75 11/19/21 02:00 87 15 110/52 95 11/19/21 01:45 80 11/19/21 01:24 98.8 F 89 17 85/35 98 11/19/21 00:19 68 122/82 11/18/21 23:00 98.8 F 88 75 14 120/74 95 11/18/21 22:00 85 16 119/79 11/18/21 19:17 98.5 F 58 L 16 112/47 96 Intake and Output 11/18/21 11/19/21 11/19/21 22:59 06:59 14:59 Intake Total 1100 60 Output Total 250 180 Balance 850 -120 Intake: IV 1100 60 Sodium Chloride 0.9% 1, 100 60 000 ml @ 20 mls/hr IV . Q24H FRANDY Rx#:[id number] Sodium Chloride 0.9% 1, 1000 000 ml @ 999 mls/hr IV . Q1H1M STA Rx#:[id number] Output: Urine 250 180 Other: # Voids 1 1 Weight 123.831 kg 131.7 kg General Impression: Alert and oriented x3, not in acute distress, currently on room air oxygen HEENT: Normocephalic atraumatic, extra-ocular movements intact, pupils equal and reactive to light bilaterally, mucous membranes moist. Cardiovascular: Heart regular rate and rhythm Chest: Able to complete full sentences, no retractions, no tachypnea Abdomen: abdomen soft, non-tender, non-distended, no organomegaly Musculoskeletal: Pulses present and equal in all extremities, nonpitting edema to the bilateral lower extremities Motor: no focal deficits noted Neurological: CN II-XII grossly intact, no focal motor or sensory deficits noted Skin: Intact with no visualized rashes, the patient has stage II ulcers on his buttocks, no active drainage, no cellulitis Psych: Normal affect and mood Results - Laboratory Findings CBC and BMP: 11/19/21 04:11 11/19/21 04:11 PT/INR, D-dimer PT 10.8 sec (9.0-12.0) 11/18/21 21:10 INR 1.0 (<1.2) 11/18/21 21:10 Abnormal lab findings: Abnormal Labs 11/18/21 11/18/21 11/18/21 21:10 21:10 21:10 RBC 3.09 L Hgb 9.2 L Hct 26.8 L Lymphocytes # 0.2 L Sodium 114 L* Potassium 6.3 H* Chloride 87 L Carbon Dioxide 17 L BUN 43 H Creatinine 2.73 H Glucose 104 H POC Glucose (mg/dL) Calcium 8.3 L Magnesium 1.4 L Total Protein Albumin Urine Protein Trace H Urine Glucose (UA) Trace H Urine Blood Trace H Ur Leukocyte Esterase Large H Urine RBC 7 H Urine WBC >182 H Urine WBC Clumps Many H Urine Bacteria Many H Hyaline Casts 4 H Urine Mucus Rare H 11/19/21 11/19/21 11/19/21 00:34 00:41 01:23 RBC Hgb Hct Lymphocytes # Sodium Potassium 5.9 H Chloride Carbon Dioxide BUN Creatinine Glucose POC Glucose (mg/dL) 147 H 65 L Calcium Magnesium Total Protein Albumin Urine Protein Urine Glucose (UA) Urine Blood Ur Leukocyte Esterase Urine RBC Urine WBC Urine WBC Clumps Urine Bacteria Hyaline Casts Urine Mucus 11/19/21 11/19/21 11/19/21 04:11 04:11 06:56 RBC 2.92 L Hgb 8.7 L Hct 25.8 L Lymphocytes # 0.2 L Sodium 117 L* Potassium Chloride 92 L Carbon Dioxide 15 L BUN 39 H Creatinine 2.28 H Glucose POC Glucose (mg/dL) 104 H Calcium 8.2 L Magnesium Total Protein 5.3 L Albumin 3.0 L Urine Protein Urine Glucose (UA) Urine Blood Ur Leukocyte Esterase Urine RBC Urine WBC Urine WBC Clumps Urine Bacteria Hyaline Casts Urine Mucus Assessment and Plan Plan: Generalized weakness, likely multifactorial due to a combination of electrode disturbance, hyponatremia and possibly an underlying UTI. The patient is currently in the intensive care unit for all these comorbidities. The patient admits that he hasn't been eating or drinking much and this was partly due to his inability to move around and walk due to severe peripheral neuropathy. Acute hyponatremia with a sodium level of 114, improving with normal saline. This is a hypochloremic hypovolemic hypernatremia Acute kidney injury, improving, secondary to intravascular depletion/dehydration Acute hyperkalemia improving and the potassium level is currently down to 5 Chronic atrial fibrillation, rate controlled and the patient does not take any form of anticoagulants for now. COPD CHF with preserved LV function. ProBNP is slightly elevated yet that is no evidence of any significant pulmonary edema Diabetes mellitus Hyperlipidemia Peripheral vascular disease Diabetic peripheral neuropathy the patient has had chronic difficulty mobility and gait and the patient has been essentially sedentary, trying to move around with the help of a walker. Acid reflux Pressure wounds on his buttock, stage II Plan Increase his IV fluids to 75 mL an hour normal saline Urine cultures and blood cultures Ultrasound of the kidneys to rule out hydronephrosis Nephrology consultation Continue with IV Rocephin pending cultures. The patient is currently on IV Rocephin 1 g every 24 hours Provide the patient incentive spirometer currently on room air oxygen Stop Aldactone Stop Cozaar Stop Janumet and put the patient on slight scale insulin coverage Restart Flomax 0.4 mg by mouth daily Hold diuretics May continue aspirin and Zocor and no cough or pain control Check a baseline troponin I Lovenox 40 mg subcu for DVT prophylaxis Dump Operator wound care Keep the patient ICU and will continue to follow.
[2021-11-19] MEDS ORDERED: FAMOTIDINE 20 MG TAB PO SCH (10:00)
[2021-11-19] MEDS ORDERED: ENOXAPARIN 30 MG/0.3 ML SYRINGE SQ SCH (10:00)
[2021-11-19] MEDS ORDERED: SODIUM CHLORIDE 0.9% 1,000 ML IV SCH (10:00)
[2021-11-19] MEDS: ASPIRIN 81 MG PO SCH (10:52)
[2021-11-19] MEDS: GABAPENTIN 300 MG CAP PO SCH ×3 (10:52→21:30)
[2021-11-19] MEDS: TAMSULOSIN 0.4 MG CAP.ER.24H PO SCH (10:58)
[2021-11-19 11:26] LABS: Glucose,Whole Blood 127 mg/dL (75-99)
[2021-11-19] MEDS: INSULIN ASPART (NovoLOG) 100 UNIT/ML VIAL SQ SCH ×3 (11:28→20:38)
--- NOTE | 2021-11-19 12:25 | P.NPCON ---
History of Present Illness - Reason for Consult acute renal failure, hyponatremia - History of Present Illness Reason for consultation: Acute kidney injury and hyponatremia History of present illness: Patient is a 71-year-old male seen in consultation for acute kidney injury and hyponatremia. Patient is resting in bed and is not a very reliable historian. Sister was present at bedside. He resides at a senior complex. Patient states he fell and was unable to get up and called the ambulance to bring him to the hospital. Sodium level was noted to be 114 last night and was 117 this morning. He is maintained on normal saline at 75 mL an hour. He does take Lasix at home which is currently held. I don't see any thiazide diuretics and his home medication list. He denies any history of cancer. Denies vomiting or diarrhea. He has been voiding but is incontinent. He denies any hematuria or dysuria. No fever or chills. Patient states he avoids salt. He denies use of nonsteroidals. He denies history of kidney disease. He does not follow with nephrology outpatient. Creatinine was 2.73 on admission and is 2.28 today. Creatinine in September 2018 was 0.85. He does have history of diabetes. Hemodynamically stable. On room air. Vital signs are stable. General: Awake. No acute distress. HEENT: Head exam is unremarkable. LUNGS: Breath sounds decreased. HEART: Rate and Rhythm are regular. ABDOMEN: Soft, obese. EXTREMITITES: Lower extremities wrapped. Trace edema. Past Medical History Past Medical History: Atrial Fibrillation, Asthma, Chest Pain / Angina, Heart Failure, COPD, Diabetes Mellitus, GERD/Reflux, Hyperlipidemia, Hypertension Additional Past Medical History / Comment(s): Chronic back pain, L leg edema, poor circulation bilateral legs/especially left, NIDDM type II, neuropathy bilateral hands/feet. History of Any Multi-Drug Resistant Organisms: None Reported Past Surgical History: Ear Surgery, Tonsillectomy Additional Past Surgical History / Comment(s): Lesion removed from R ear, colonoscopy Past Anesthesia/Blood Transfusion Reactions: No Reported Reaction Past Psychological History: No Psychological Hx Reported Additional Psychological History / Comment(s): Pt resides alone. He uses a cane to ambulate. He does not own a car, he uses a cab. Smoking Status: Former smoker Past Alcohol Use History: None Reported Additional Past Alcohol Use History / Comment(s): Pt started smoking as a teen and quit in 1984. Past Drug Use History: None Reported - Past Family History Mother Family Medical History: COPD, Coronary Artery Disease (CAD), Myocardial Infarction ([place]) Additional Family Medical History / Comment(s): Pt does not know at what age mother had [place]. She was a smoker. Father Family Medical History: COPD, Coronary Artery Disease (CAD), Myocardial Infarction ([place]) Additional Family Medical History / Comment(s): Father had [place] but pt does not know at what age. Father was a smoker. Medications and Allergies Home Medications Medication Instructions Recorded Confirmed Type Gabapentin [Neurontin] 300 mg PO TID 10/04/18 11/18/21 History HYDROcodone/APAP 10-325MG [[place] 1 tab PO TID PRN 10/04/18 11/18/21 History 10-325] Simvastatin [Zocor] 20 mg PO HS 10/04/18 11/18/21 History Spironolactone [Aldactone] 25 mg PO DAILY 10/04/18 11/18/21 History Famotidine [Pepcid] 40 mg PO DAILY 06/15/20 11/18/21 History sitaGLIPtin PHOS/metFORMIN HCL 1 tab PO BID 06/15/20 11/18/21 History [Janumet 50-1,000 mg Tablet] Aspirin EC [Ecotrin Low Dose] 81 mg PO DAILY 11/18/21 11/18/21 History Cephalexin [Keflex] 500 mg PO BID 11/18/21 11/18/21 History Furosemide [Lasix] 20 mg PO TID 11/18/21 11/18/21 History Losartan [Cozaar] 25 mg PO DAILY 11/18/21 11/18/21 History Niacin [Niacin ER] 500 mg PO DAILY 11/18/21 11/18/21 History Tamsulosin [Flomax] 0.4 mg PO DAILY 11/18/21 11/18/21 History Allergies Allergy/AdvReac Type Severity Reaction Status Date / Time No Known Allergies Allergy Verified 11/18/21 21:40 Physical Exam Vitals: Vital Signs Temp Pulse Pulse Resp BP Pulse Ox 11/19/21 12:00 98 F 57 L 16 125/60 97 11/19/21 11:00 74 19 120/50 96 11/19/21 10:00 86 16 128/56 93 L 11/19/21 09:00 67 15 119/53 97 11/19/21 08:00 98.2 F 87 17 111/50 98 11/19/21 07:00 64 14 112/49 95 11/19/21 06:00 67 14 108/49 94 L 11/19/21 05:00 98.5 F 63 14 120/43 96 11/19/21 04:00 71 15 119/48 97 11/19/21 03:00 75 16 114/54 98 11/19/21 02:04 75 11/19/21 02:00 87 15 110/52 95 11/19/21 01:45 80 11/19/21 01:24 98.8 F 89 17 85/35 98 11/19/21 00:19 68 122/82 11/18/21 23:00 98.8 F 88 75 14 120/74 95 11/18/21 22:00 85 16 119/79 11/18/21 19:17 98.5 F 58 L 16 112/47 96 Intake and Output 11/18/21 11/19/21 11/19/21 22:59 06:59 14:59 Intake Total 1100 535 Output Total 250 180 Balance 850 355 Intake: IV 1100 60 Sodium Chloride 0.9% 1, 100 60 000 ml @ 20 mls/hr IV . Q24H FRANDY Rx#:[id number] Sodium Chloride 0.9% 1, 1000 000 ml @ 999 mls/hr IV . Q1H1M STA Rx#:[id number] Intake, IV Titration 275 Amount Sodium Chloride 0.9% 1, 225 000 ml @ 75 mls/hr IV . [id number] FRANDY Rx#:[id number] cefTRIAXone 1 gm In 50 Sodium Chloride 0.9% 50 ml @ 100 mls/hr IVPB Q24HR FRANDY Rx#:[id number] Oral 200 Output: Urine 250 180 Other: # Voids 1 1 Weight 123.831 kg 131.7 kg 131.7 kg Results - Lab Results Most recent lab results Calcium 8.2 mg/dL (8.4-10.2) L 11/19/21 04:11 Magnesium 1.4 mg/dL (1.6-2.3) L 11/18/21 21:10 11/19/21 04:11 11/19/21 04:11 Assessment and Plan Plan: Assessment: 1. Hypovolemic hyponatremia improving with normal saline. Sodium level was 114 on admission last night and 117 this morning. 2. Acute kidney injury mostly prerenal from diuresis and losartan. Improving. Creatinine was 2.73 on admission and is 2.28 today. Creatinine in September 2018 was 0.85. 3. Metabolic acidosis secondary to acute kidney injury. 4. Diabetes mellitus. 5. Anemia. Rule out iron deficiency. 6. Benign hypertension. Controlled. 7. UTI. On antibiotics. 8. Chronic diastolic CHF. Plan: Maintain normal saline. Diuretics held. Encouraged oral intake. 1500 mL fluid restriction. Hold losartan for now. Follow-up cultures. Repeat sodium level now. Check bladder scan to rule out urinary retention. Follow-up kidney ultrasound. Check serum and urine osmolality, urine sodium level and TSH. Thank you for the consultation. I will continue to follow the patient with you during his hospital stay.
--- NOTE | 2021-11-19 15:42 | US ---
EXAMINATION TYPE: US kidneys/renal and bladder DATE OF EXAM: 11/19/2021 COMPARISON: 10/06/2018 CLINICAL HISTORY: 71-year-old male acute kidney injury. TECHNIQUE: Multiple sonographic images of the kidneys and bladder are obtained. FINDINGS: EXAM MEASUREMENTS: Right Kidney: 11.4 x 5.5 x 5.6 cm Left Kidney: 12.1 x 6.4 x 6.1 cm Prominent contour loculations both kidneys. Right Kidney: No hydronephrosis or masses seen Left Kidney: No hydronephrosis or masses seen Bladder: Slight irregularity to the posterior wall probably reflect some underlying bladder wall trab eculations. Correlate with urinalysis, urine cytology, and three-month follow-up ultrasound to reasse ss. IMPRESSION: 1. No hydronephrosis. 2. Slight irregularity to the posterior wall of the bladder could reflect some underlying bladder wal l trabeculations. Correlate with urinalysis, urine cytology, and three-month follow-up ultrasound to reassess.
--- NOTE | 2021-11-19 15:57 | HP ---
HISTORY AND PHYSICAL This 71-year-old white male came in with acute kidney injury, hyponatremia. He was recently in the other hospital for some diastolic heart failure. He came in with severe sodium levels of 114 and 117. He was placed on normal saline at 75 mL/hour. He does take Lasix at home, which he has not been taking recently. He does not have any thiazide diuretics on board. He denies any history of cancer. He has some diastolic heart failure we have been treating as an outpatient. He states he avoids salt, does not use NSAIDs. Creatinine on admission today was 2.28; it was 0.85 in 2019. He has a history of diabetes, obesity, severe arthritis. Fourteen-point review of systems: Please see chart. Otherwise negative. PAST MEDICAL HISTORY: Atrial fibrillation, asthma, angina, heart failure, COPD, diabetes mellitus, GERD, hypertension, dyslipidemia, chronic back pain, circulation issues. Surgeries are ear surgery, tonsillectomy, lesion removed from the right ear. He does not have due to severe arthritis of the knees. For family history, see old chart. For home medications, see chart. ALLERGIES NEGATIVE. Temperature 98, respiratory rate 16 to 18, blood pressure 110s to 120s over 50s to 60s. Pulse 50s to 80s, O2 saturation 93 to 97. This is an obese white male who looks weak, dehydrated. Cardiovascular S1-S2. Lungs have rales at the base. Hematology 2+ edema. GI distended obesity. No mass or organomegaly. ASSESSMENT: 1. Hypovolemic hyponatremia, improving with normal saline from 114 up to 117. 2. Acute kidney injury, mostly prerenal from diuresis losartan, improving. Creatinine was 2.73 on admission. It is 2.28 today. 3. Metabolic acidosis. 4. Diabetes mellitus. 5. Anemia. 6. Benign hypertension. 7. Urinary tract infection of significant nature with white cells over 174, which may have contributed to the prerenal azotemia. 8. Chronic diastolic heart failure. Maintain normal saline. Hold diuretics. 15 mL fluid restriction. Hold losartan. IV Rocephin. Continue current cultures. Follow-up kidney ultrasound. Urine sodium level. TSH. Check serum and urine osmolality. MMODL / IJN: [id number] /
[2021-11-19 16:27] LABS: Glucose,Whole Blood 141 mg/dL (75-99)
[2021-11-19] MEDS ORDERED: DEXTROSE 5% IN WATER 1,000 ML IV ONE (18:14)
[2021-11-19 20:20] LABS: Glucose,Whole Blood 126 mg/dL (75-99)
[2021-11-19] MEDS: ATORVASTATIN 10 MG TAB PO SCH (21:30)
[2021-11-19] MEDS: guaiFENesin SYRUP 100MG/5ML 200 MG/10 ML CUP PO PRN (21:31)
[2021-11-19 22:04] LABS: % Iron Saturation 4.82 (15.00-50.00)
--- NOTE | 2021-11-20 06:34 | P.CONS ---
History of Present Illness - Reason for Consult Consult date: 11/19/21 urinary Tract infection, sacral ulcer Requesting physician: Kyle Amado - Chief Complaint Weakness x few days - History of Present Illness Patient is a 71-year-old male with a past medical he significant for diabetes mellitus COPD heart failure hypertension hyperlipidemia was brought into the ER after apparently patient did have a fall at home and the patient initially refused to come to the ER subsequently did call EMS patient was complaining of some shortness of breath and not feeling well has been complaining of feeling weak tired and made a start of a fell forward however the patient denies having any loss of consciousness patient denies any headache no chest pain patient did have mild dry cough some nausea but no vomiting no abdominal pain vomiting diarrhea patient recently been treated for UTI with no antibiotic in the outpatient setting on presentation to the hospital the patient was afebrile no significant hypoxemia or need for supplemental oxygen patient did have normal white count with mild lymphopenia did have elevated BUN/creatinine and potassium was elevated liver enzymes are normal patient did have a positive UA influenza RSV and prado PCR was negative patient did have a chest x-ray no active cardiopulmonary disease patient was admitted to ICU because of his elevated potassium and is being managed by nephrology services the positive UA the patient was started on Rocephin infectious disease was consulted for further management of antibiotic therapy patient did have ultrasound of the abdominal and bladder showing no hydronephrosis slightly irregularity to the posterior wall of the bladder could reflect underlying bladder wall trabeculations Review of Systems Positive point has been mentioned in the HPI rest of the systems are negative Past Medical History Past Medical History: Atrial Fibrillation, Asthma, Chest Pain / Angina, Heart Failure, COPD, Diabetes Mellitus, GERD/Reflux, Hyperlipidemia, Hypertension Additional Past Medical History / Comment(s): Chronic back pain, L leg edema, poor circulation bilateral legs/especially left, NIDDM type II, neuropathy bilateral hands/feet. History of Any Multi-Drug Resistant Organisms: None Reported Past Surgical History: Ear Surgery, Tonsillectomy Additional Past Surgical History / Comment(s): Lesion removed from R ear, colonoscopy Past Anesthesia/Blood Transfusion Reactions: No Reported Reaction Past Psychological History: No Psychological Hx Reported Additional Psychological History / Comment(s): Pt resides alone. He uses a cane to ambulate. He does not own a car, he uses a cab. Smoking Status: Former smoker Past Alcohol Use History: None Reported Additional Past Alcohol Use History / Comment(s): Pt started smoking as a teen and quit in 1984. Past Drug Use History: None Reported - Past Family History Mother Family Medical History: COPD, Coronary Artery Disease (CAD), Myocardial Infarction (VT) Additional Family Medical History / Comment(s): Pt does not know at what age mother had VT. She was a smoker. Father Family Medical History: COPD, Coronary Artery Disease (CAD), Myocardial Infarction (VT) Additional Family Medical History / Comment(s): Father had VT but pt does not know at what age. Father was a smoker. Medications and Allergies Home Medications Medication Instructions Recorded Confirmed Type Gabapentin [Neurontin] 300 mg PO TID 10/04/18 11/18/21 History HYDROcodone/APAP 10-325MG [[place] 1 tab PO TID PRN 10/04/18 11/18/21 History 10-325] Simvastatin [Zocor] 20 mg PO HS 10/04/18 11/18/21 History Spironolactone [Aldactone] 25 mg PO DAILY 10/04/18 11/18/21 History Famotidine [Pepcid] 40 mg PO DAILY 06/15/20 11/18/21 History sitaGLIPtin PHOS/metFORMIN HCL 1 tab PO BID 06/15/20 11/18/21 History [Janumet 50-1,000 mg Tablet] Aspirin EC [Ecotrin Low Dose] 81 mg PO DAILY 11/18/21 11/18/21 History Cephalexin [Keflex] 500 mg PO BID 11/18/21 11/18/21 History Furosemide [Lasix] 20 mg PO TID 11/18/21 11/18/21 History Losartan [Cozaar] 25 mg PO DAILY 11/18/21 11/18/21 History Niacin [Niacin ER] 500 mg PO DAILY 11/18/21 11/18/21 History Tamsulosin [Flomax] 0.4 mg PO DAILY 11/18/21 11/18/21 History Allergies Allergy/AdvReac Type Severity Reaction Status Date / Time No Known Allergies Allergy Verified 11/18/21 21:40 Physical Exam Vitals: Vital Signs Temp Pulse Pulse Resp BP Pulse Ox 11/19/21 11:00 74 19 120/50 96 11/19/21 10:00 86 16 128/56 93 L 11/19/21 09:00 67 15 119/53 97 11/19/21 08:00 98.2 F 87 17 111/50 98 11/19/21 07:00 64 14 112/49 95 11/19/21 06:00 67 14 108/49 94 L 11/19/21 05:00 98.5 F 63 14 120/43 96 11/19/21 04:00 71 15 119/48 97 11/19/21 03:00 75 16 114/54 98 11/19/21 02:04 75 11/19/21 02:00 87 15 110/52 95 11/19/21 01:45 80 11/19/21 01:24 98.8 F 89 17 85/35 98 11/19/21 00:19 68 122/82 11/18/21 23:00 98.8 F 88 75 14 120/74 95 11/18/21 22:00 85 16 119/79 11/18/21 19:17 98.5 F 58 L 16 112/47 96 Intake and Output 11/18/21 11/19/21 11/19/21 22:59 06:59 14:59 Intake Total 1100 360 Output Total 250 180 Balance 850 180 Intake: IV 1100 60 Sodium Chloride 0.9% 1, 100 60 000 ml @ 20 mls/hr IV . Q24H [facility] Rx#:[id number] Sodium Chloride 0.9% 1, 1000 000 ml @ 999 mls/hr IV . Q1H1M [facility] Rx#:[id number] Intake, IV Titration 200 Amount Sodium Chloride 0.9% 1, 150 000 ml @ 75 mls/hr IV . [id number] [facility] Rx#:[id number] cefTRIAXone 1 gm In 50 Sodium Chloride 0.9% 50 ml @ 100 mls/hr IVPB Q24HR [facility] Rx#:[id number] Oral 100 Output: Urine 250 180 Other: # Voids 1 1 Weight 123.831 kg 131.7 kg 131.7 kg GENERAL DESCRIPTION: Elderly male lying in bed, no distress. No tachypnea or accessory muscle of respiration use. HEENT: Shows Pallor , no scleral icterus. Oral mucous membrane is dry. No pharyngeal erythema or thrush NECK: Trachea central, no thyromegaly. LUNGS: Unlabored breathing. Clear to auscultation anteriorly. No wheeze or crackle. HEART: S1, S2, regular rate and rhythm. No loud murmur ABDOMEN: Soft, no tenderness , guarding or rigidity, no organomegaly EXTREMITIES: No edema of feet. SKIN: Stage II pressure ulcer to the sacrum and bilateral gluteal area with no evidence of any cellulitis NEUROLOGICAL: The patient is awake, alert, oriented x3, mood and affect normal. Results CBC & Chem 7: 11/21/21 07:28 11/22/21 11:15 Labs: Abnormal Lab Results - Last 24 Hours (Table) 11/18/21 11/18/21 11/18/21 Range/Units 21:10 21:10 21:10 RBC 3.09 L (4.30-5.90) m/uL Hgb 9.2 L (13.0-17.5) gm/dL Hct 26.8 L (39.0-53.0) % Lymphocytes # 0.2 L (1.0-4.8) k/uL Sodium 114 L* (137-145) mmol/L Potassium 6.3 H* (3.5-5.1) mmol/L Chloride 87 L (98-107) mmol/L Carbon Dioxide 17 L (22-30) mmol/L BUN 43 H (9-20) mg/dL Creatinine 2.73 H (0.66-1.25) mg/dL Glucose 104 H (74-99) mg/dL POC Glucose (mg/dL) (75-99) mg/dL Calcium 8.3 L (8.4-10.2) mg/dL Magnesium 1.4 L (1.6-2.3) mg/dL Troponin I (0.000-0.034) ng/mL Total Protein (6.3-8.2) g/dL Albumin (3.5-5.0) g/dL Urine Protein Trace H (Negative) Urine Glucose (UA) Trace H (Negative) Urine Blood Trace H (Negative) Ur Leukocyte Esterase Large H (Negative) Urine RBC 7 H (0-5) /hpf Urine WBC >182 H (0-5) /hpf Urine WBC Clumps Many H (None) /hpf Urine Bacteria Many H (None) /hpf Hyaline Casts 4 H (0-2) /lpf Urine Mucus Rare H (None) /hpf 11/19/21 11/19/21 11/19/21 Range/Units 00:34 00:41 01:23 RBC (4.30-5.90) m/uL Hgb (13.0-17.5) gm/dL Hct (39.0-53.0) % Lymphocytes # (1.0-4.8) k/uL Sodium (137-145) mmol/L Potassium 5.9 H (3.5-5.1) mmol/L Chloride (98-107) mmol/L Carbon Dioxide (22-30) mmol/L BUN (9-20) mg/dL Creatinine (0.66-1.25) mg/dL Glucose (74-99) mg/dL POC Glucose (mg/dL) 147 H 65 L (75-99) mg/dL Calcium (8.4-10.2) mg/dL Magnesium (1.6-2.3) mg/dL Troponin I (0.000-0.034) ng/mL Total Protein (6.3-8.2) g/dL Albumin (3.5-5.0) g/dL Urine Protein (Negative) Urine Glucose (UA) (Negative) Urine Blood (Negative) Ur Leukocyte Esterase (Negative) Urine RBC (0-5) /hpf Urine WBC (0-5) /hpf Urine WBC Clumps (None) /hpf Urine Bacteria (None) /hpf Hyaline Casts (0-2) /lpf Urine Mucus (None) /hpf 11/19/21 11/19/21 11/19/21 Range/Units 04:11 04:11 06:56 RBC 2.92 L (4.30-5.90) m/uL Hgb 8.7 L (13.0-17.5) gm/dL Hct 25.8 L (39.0-53.0) % Lymphocytes # 0.2 L (1.0-4.8) k/uL Sodium 117 L* (137-145) mmol/L Potassium (3.5-5.1) mmol/L Chloride 92 L (98-107) mmol/L Carbon Dioxide 15 L (22-30) mmol/L BUN 39 H (9-20) mg/dL Creatinine 2.28 H (0.66-1.25) mg/dL Glucose (74-99) mg/dL POC Glucose (mg/dL) 104 H (75-99) mg/dL Calcium 8.2 L (8.4-10.2) mg/dL Magnesium (1.6-2.3) mg/dL Troponin I (0.000-0.034) ng/mL Total Protein 5.3 L (6.3-8.2) g/dL Albumin 3.0 L (3.5-5.0) g/dL Urine Protein (Negative) Urine Glucose (UA) (Negative) Urine Blood (Negative) Ur Leukocyte Esterase (Negative) Urine RBC (0-5) /hpf Urine WBC (0-5) /hpf Urine WBC Clumps (None) /hpf Urine Bacteria (None) /hpf Hyaline Casts (0-2) /lpf Urine Mucus (None) /hpf 11/19/21 11/19/21 Range/Units 09:58 11:24 RBC (4.30-5.90) m/uL Hgb (13.0-17.5) gm/dL Hct (39.0-53.0) % Lymphocytes # (1.0-4.8) k/uL Sodium (137-145) mmol/L Potassium (3.5-5.1) mmol/L Chloride (98-107) mmol/L Carbon Dioxide (22-30) mmol/L BUN (9-20) mg/dL Creatinine (0.66-1.25) mg/dL Glucose (74-99) mg/dL POC Glucose (mg/dL) 127 H (75-99) mg/dL Calcium (8.4-10.2) mg/dL Magnesium (1.6-2.3) mg/dL Troponin I 0.047 H* (0.000-0.034) ng/mL Total Protein (6.3-8.2) g/dL Albumin (3.5-5.0) g/dL Urine Protein (Negative) Urine Glucose (UA) (Negative) Urine Blood (Negative) Ur Leukocyte Esterase (Negative) Urine RBC (0-5) /hpf Urine WBC (0-5) /hpf Urine WBC Clumps (None) /hpf Urine Bacteria (None) /hpf Hyaline Casts (0-2) /lpf Urine Mucus (None) /hpf Microbiology - Last 24 Hours (Table) 11/18/21 21:10 Urine Culture - Preliminary Urine,Voided Assessment and Plan (1) Urinary tract infection Current Visit: Yes Status: Acute Code(s): N39.0 - URINARY TRACT INFECTION, SITE NOT SPECIFIED SNOMED Code(s): 74588597 Plan: 1patient presented hospital with weakness fall which is likely multifactorial in this patient did have significant elevated BUN/creatinine possibly prerenal and did have a positive UA concerning for a UTI likely from enteric gram- negative pathogen. 2continue patient on Rocephin 1 g daily while waiting for the culture to finalize. 3patient with stage II pressure ulcer to the sacrum and bilateral gluteal area with no evidence of any cellulitis recommend local wound care no need for any specific antibiotic therapy for the pressure ulcers We will follow on clinical condition and cultures to further adjust medication if needed Thank you for this consultation will follow this patient along with you Time with Patient: Greater than 30
[2021-11-20 06:38] LABS: Glucose,Whole Blood 103 mg/dL (75-99)
[2021-11-20] MEDS: INSULIN ASPART (NovoLOG) 100 UNIT/ML VIAL SQ SCH ×4 (06:38→20:50)
[2021-11-20 07:24] LABS: Basophils % (A) 0 %; Eosinophils # (A) 0.1 k/uL (0-0.7); Eosinophils % (A) 2 %; HCT 28.6 % (39.0-53.0); HGB 9.3 gm/dL (13.0-17.5); Lymphocytes # (A) 0.4 k/uL (1.0-4.8); Lymphocytes % (A) 8 %; MCH 29.5 pg (25.0-35.0); MCHC 32.6 g/dL (31.0-37.0); MCV 90.7 fL (80.0-100.0); Mean Platelet Volume 6.7; Monocytes # (A) 0.3 k/uL (0-1.0); Monocytes % (A) 7 %; Neutrophils % (A) 81 %; Platelet Count 174 k/uL (150-450); RBC 3.15 m/uL (4.30-5.90); RDW 13.7 % (11.5-15.5)
[2021-11-20 07:45] LABS: ALT 14 U/L (4-49); AST 28 U/L (17-59); African American GFR (CKD) 67 (>60 ml/min/1.73 sqM); Albumin 2.9 g/dL (3.5-5.0); Alkaline Phosphatase 53 U/L (38-126); Anion Gap 6 mmol/L; Blood Urea Nitrogen 24 mg/dL (9-20); Calcium 8.3 mg/dL (8.4-10.2); Carbon Dioxide 19 mmol/L (22-30); Chloride 98 mmol/L (98-107); Glucose 89 mg/dL (74-99); Non-African American GFR(CKD) 58 (>60 ml/min/1.73 sqM); Potassium 5.2 mmol/L (3.5-5.1); Sodium 123 mmol/L (137-145); Total Bilirubin 0.2 mg/dL (0.2-1.3); Total Protein 5.3 g/dL (6.3-8.2)
[2021-11-20] MEDS ORDERED: LOSARTAN 25 MG TAB PO SCH (09:00)
[2021-11-20] MEDS: ENOXAPARIN 40 MG/0.4 ML SYRINGE SQ SCH (09:10)
[2021-11-20] MEDS: FAMOTIDINE 20 MG TAB PO SCH (09:10)
[2021-11-20] MEDS: ASPIRIN 81 MG PO SCH (09:10)
[2021-11-20] MEDS: TAMSULOSIN 0.4 MG CAP.ER.24H PO SCH (09:10)
[2021-11-20] MEDS: GABAPENTIN 300 MG CAP PO SCH ×3 (09:10→20:50)
[2021-11-20] MEDS: SODIUM CHLORIDE 0.9% 1,000 ML IV SCH (09:34)
--- NOTE | 2021-11-20 10:09 | P.PN ---
Subjective Progress Note Date: 11/20/21 This is a 71-year-old male patient, essentially poor historian who came into the emergency room because of shortness of breath. The patient was having generalized weakness and he fell at home. Initially didn't want to come into the hospital and later on he called EMS. He was brought into the ED and he was found to have significantly abnormal blood work in addition to possible UTI and for that reason the patient got treated and the patient got admitted to the intensive care unit. The patient was feeling tired and he was unable to stand up and he fell forward. Denied having any injuries to his body or skeletal system. No chills. No fever. No chest pain. No shortness of breath. The patient's initial blood work in the emergency department revealed a white cell count of 6.7 with hemoglobin 9.2, platelet count was at 164, the UA was abnormal consistent with underlying UTI with clumps of white cells, normal coagulation profile, the patient's proBNP level was 1500 with a lactic acid level of 1.0. The patient also had significant abnormalities in his electrolytes, his sodium was 114 with a potassium level of 6.3 and a chloride of 87 with a bicarb of 17 and a anion gap of 10. Creatinine was at 2.7 with a mean of 43. The patient was started on IV fluids. The patient was given 1 L normal saline bolus and he was maintained on 20 mL an hour of normal saline. Sodium levels currently is at 117 and the potassium level dropped down to 5.0 and the patient got decreased treatment for his acute hyperkalemia with Kayexalate and calcium gluconate and insulin with D50. As such, the potassium level dropped back down to 5.0. Creatinine is down to 2.2 and the BUN is at 39. Glucose is at 104. The chest x-ray shows no acute abnormalities. The CAT scan of the brain is not showing any acute abnormalities. The patient was given IV Rocephin as an empiric antibiotic coverage. He received only 1 dose. Cultures are still pending for now. 11/20/2021, the patient is awake and alert and communicating. Slightly improved compared to yesterday. He was profoundly weak and a time of admission and he was also hyponatremic and he was suspected to have an UTI. Sodium level was as low as 114. The patient was placed on normal saline. The sodium level came up to 120 to yesterday 122. Following that he was started on D5 water and this morning, nephrology opted to put him back on normal saline at the rate of 60 mL an hour. Most recent sodium level is at 123. At the same time, the patient demonstrated improvement in her renal function in the creatinine is down to 1.23. His serum bicarb is at 19. Doing well. No ulcer ascitic complaints. His potassium level is down to 5.2. He is on IV Rocephin. Cultures are still pending for now. There is a concern for an underlying UTI. The patient is afebrile. The patient is hemodynamically stable. The cardiac rhythm however is of normal. The patient is bradycardic at the rate of 57 and there may be a high degree AV block. A 12-lead EKG will be obtained to evaluate this abnormality. His pulse ox on room air is 93%. Objective - Vital Signs Vital signs: Vital Signs Temp 98.2 F 11/20/21 08:00 Pulse 66 11/20/21 09:00 Resp 18 11/20/21 09:00 BP 130/62 11/20/21 09:00 Pulse Ox 93 L 11/20/21 09:00 FiO2 Intake & Output 11/19/21 11/20/21 11/20/21 18:59 06:59 18:59 Intake Total 805 225 290 Output Total 180 400 0 Balance 625 -175 290 Weight 131.7 kg 131 kg Intake: IV 60 225 0 Dextrose 5% in Water 1, 225 0 000 ml @ 75 mls/hr IV . [id number] [facility] Rx#:[id number] Sodium Chloride 0.9% 1, 60 000 ml @ 20 mls/hr IV . Q24H [facility] Rx#:[id number] Intake, IV Titration 425 0 50 Amount Dextrose 5% in Water 1, 0 000 ml @ 75 mls/hr IV . [id number] [facility] Rx#:[id number] Sodium Chloride 0.9% 1, 375 000 ml @ 75 mls/hr IV . [id number] [facility] Rx#:[id number] cefTRIAXone 1 gm In 50 50 Sodium Chloride 0.9% 50 ml @ 100 mls/hr IVPB Q24HR [facility] Rx#:[id number] Oral 320 240 Output: Urine 180 400 0 Post Void Residual 0 Other: # Voids 1 1 1 # Bowel Movements 1 - Exam General Impression: Alert and oriented x3, not in acute distress, currently on room air oxygen HEENT: Normocephalic atraumatic, extra-ocular movements intact, pupils equal and reactive to light bilaterally, mucous membranes moist. Cardiovascular: Heart regular rate and rhythm Chest: Able to complete full sentences, no retractions, no tachypnea Abdomen: abdomen soft, non-tender, non-distended, no organomegaly Musculoskeletal: Pulses present and equal in all extremities, nonpitting edema to the bilateral lower extremities Motor: no focal deficits noted Neurological: CN II-XII grossly intact, no focal motor or sensory deficits noted Skin: Intact with no visualized rashes, the patient has stage II ulcers on his buttocks, no active drainage, no cellulitis Psych: Normal affect and mood - Labs CBC & Chem 7: 11/20/21 06:22 11/20/21 06:22 Labs: Abnormal Lab Results - Last 24 Hours (Table) 11/19/21 11/19/21 11/19/21 Range/Units 09:58 10:55 11:24 RBC (4.30-5.90) m/uL Hgb (13.0-17.5) gm/dL Hct (39.0-53.0) % Lymphocytes # (1.0-4.8) k/uL Sodium 120 L (137-145) mmol/L Potassium (3.5-5.1) mmol/L Carbon Dioxide (22-30) mmol/L BUN (9-20) mg/dL POC Glucose (mg/dL) 127 H (75-99) mg/dL Osmolality 267 L (280-301) mosm/kg Calcium (8.4-10.2) mg/dL Iron 11 L (65-175) ug/dL TIBC 224 L (228-460) ug/dL % Saturation 4.82 L (15.00-50.00) Transferrin 160.0 L (204.0-354.0) mg/dL Troponin I 0.047 H* (0.000-0.034) ng/mL Total Protein (6.3-8.2) g/dL Albumin (3.5-5.0) g/dL Ur Random Sodium (40-220) mmol/L 11/19/21 11/19/21 11/19/21 Range/Units 16:25 16:46 20:18 RBC (4.30-5.90) m/uL Hgb (13.0-17.5) gm/dL Hct (39.0-53.0) % Lymphocytes # (1.0-4.8) k/uL Sodium 122 L (137-145) mmol/L Potassium (3.5-5.1) mmol/L Carbon Dioxide (22-30) mmol/L BUN (9-20) mg/dL POC Glucose (mg/dL) 141 H 126 H (75-99) mg/dL Osmolality (280-301) mosm/kg Calcium (8.4-10.2) mg/dL Iron (65-175) ug/dL TIBC (228-460) ug/dL % Saturation (15.00-50.00) Transferrin (204.0-354.0) mg/dL Troponin I (0.000-0.034) ng/mL Total Protein (6.3-8.2) g/dL Albumin (3.5-5.0) g/dL Ur Random Sodium (40-220) mmol/L 11/19/2122 11/20/21 Range/Units 21:17 Unknown 06:22 RBC (4.30-5.90) m/uL Hgb (13.0-17.5) gm/dL Hct (39.0-53.0) % Lymphocytes # (1.0-4.8) k/uL Sodium 122 L 123 L (137-145) mmol/L Potassium 5.2 H (3.5-5.1) mmol/L Carbon Dioxide 19 L (22-30) mmol/L BUN 24 H (9-20) mg/dL POC Glucose (mg/dL) (75-99) mg/dL Osmolality (280-301) mosm/kg Calcium 8.3 L (8.4-10.2) mg/dL Iron (65-175) ug/dL TIBC (228-460) ug/dL % Saturation (15.00-50.00) Transferrin (204.0-354.0) mg/dL Troponin I (0.000-0.034) ng/mL Total Protein 5.3 L (6.3-8.2) g/dL Albumin 2.9 L (3.5-5.0) g/dL Ur Random Sodium 29 L (40-220) mmol/L 11/20/21 11/20/21 Range/Units 06:22 06:36 RBC 3.15 L (4.30-5.90) m/uL Hgb 9.3 L (13.0-17.5) gm/dL Hct 28.6 L (39.0-53.0) % Lymphocytes # 0.4 L (1.0-4.8) k/uL Sodium (137-145) mmol/L Potassium (3.5-5.1) mmol/L Carbon Dioxide (22-30) mmol/L BUN (9-20) mg/dL POC Glucose (mg/dL) 103 H (75-99) mg/dL Osmolality (280-301) mosm/kg Calcium (8.4-10.2) mg/dL Iron (65-175) ug/dL TIBC (228-460) ug/dL % Saturation (15.00-50.00) Transferrin (204.0-354.0) mg/dL Troponin I (0.000-0.034) ng/mL Total Protein (6.3-8.2) g/dL Albumin (3.5-5.0) g/dL Ur Random Sodium (40-220) mmol/L Microbiology - Last 24 Hours (Table) 11/18/21 21:10 Urine Culture - Preliminary Urine,Voided Assessment and Plan Plan: Generalized weakness, likely multifactorial due to a combination of electrode disturbance, hyponatremia and possibly an underlying UTI. The patient is currently in the intensive care unit for all these comorbidities. The patient admits that he hasn't been eating or drinking much and this was partly due to his inability to move around and walk due to severe peripheral neuropathy. Clinically improving as the patient is a stated IV fluids, sodium level is improved and the patient's is also being covered with IV antibiotics. Acute hyponatremia with a sodium level of 114, improving with normal saline. This is a hypochloremic hypovolemic hypernatremia, sodium level is up to 123 Acute kidney injury, improving, secondary to intravascular depletion/dehydration, kidney function is improving Acute hyperkalemia improving Chronic atrial fibrillation, rate controlled and the patient does not take any form of anticoagulants for now. There is also concern for a high degree AV block. A 12-lead EKG will be repeated today. COPD CHF with preserved LV function. ProBNP is slightly elevated yet that is no ev idence of any significant pulmonary edema Diabetes mellitus Hyperlipidemia Peripheral vascular disease Diabetic peripheral neuropathy the patient has had chronic difficulty mobility and gait and the patient has been essentially sedentary, trying to move around with the help of a walker. Acid reflux Pressure wounds on his buttock, stage II Plan Increase his IV fluids to 60 mL an hour normal saline Urine cultures and blood cultures pending Nephrology consultation appreciated Continue with IV Rocephin pending cultures. 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
--- NOTE | 2021-11-20 10:12 | P.PN ---
Subjective Patient is seen in follow-up for hyponatremia and acute kidney injury. Renal function improving. Sodium level 123 this morning. Oral intake fair. No vomiting or diarrhea. Hemodynamically stable. On room air. Vital signs are stable. General: Awake. No acute distress. HEENT: Head exam is unremarkable. LUNGS: Breath sounds decreased. HEART: Rate and Rhythm are regular. ABDOMEN: Soft, no distention. EXTREMITITES: 1+ edema. Objective - Vital Signs Vital signs: Vital Signs Temp 98.2 F 11/20/21 08:00 Pulse 75 11/20/21 10:00 Resp 18 11/20/21 10:00 BP 119/63 11/20/21 10:00 Pulse Ox 98 11/20/21 10:00 FiO2 Intake & Output 11/19/21 11/20/21 11/20/21 18:59 06:59 18:59 Intake Total 805 225 290 Output Total 180 400 0 Balance 625 -175 290 Weight 131.7 kg 131 kg Intake: IV 60 225 0 Dextrose 5% in Water 1, 225 0 000 ml @ 75 mls/hr IV . [id number] [facility] Rx#:[id number] Sodium Chloride 0.9% 1, 60 000 ml @ 20 mls/hr IV . Q24H [facility] Rx#:[id number] Intake, IV Titration 425 0 50 Amount Dextrose 5% in Water 1, 0 000 ml @ 75 mls/hr IV . [id number] [facility] Rx#:[id number] Sodium Chloride 0.9% 1, 375 000 ml @ 75 mls/hr IV . [id number] [facility] Rx#:[id number] cefTRIAXone 1 gm In 50 50 Sodium Chloride 0.9% 50 ml @ 100 mls/hr IVPB Q24HR [facility] Rx#:[id number] Oral 320 240 Output: Urine 180 400 0 Post Void Residual 0 Other: # Voids 1 1 1 # Bowel Movements 1 - Labs CBC & Chem 7: 11/20/21 06:22 11/20/21 06:22 Labs: Abnormal Lab Results - Last 24 Hours (Table) 11/19/21 11/19/21 11/19/21 Range/Units 09:58 10:55 11:24 RBC (4.30-5.90) m/uL Hgb (13.0-17.5) gm/dL Hct (39.0-53.0) % Lymphocytes # (1.0-4.8) k/uL Sodium 120 L (137-145) mmol/L Potassium (3.5-5.1) mmol/L Carbon Dioxide (22-30) mmol/L BUN (9-20) mg/dL POC Glucose (mg/dL) 127 H (75-99) mg/dL Osmolality 267 L (280-301) mosm/kg Calcium (8.4-10.2) mg/dL Iron 11 L (65-175) ug/dL TIBC 224 L (228-460) ug/dL % Saturation 4.82 L (15.00-50.00) Transferrin 160.0 L (204.0-354.0) mg/dL Troponin I 0.047 H* (0.000-0.034) ng/mL Total Protein (6.3-8.2) g/dL Albumin (3.5-5.0) g/dL Ur Random Sodium (40-220) mmol/L 11/19/21 11/19/21 11/19/21 Range/Units 16:25 16:46 20:18 RBC (4.30-5.90) m/uL Hgb (13.0-17.5) gm/dL Hct (39.0-53.0) % Lymphocytes # (1.0-4.8) k/uL Sodium 122 L (137-145) mmol/L Potassium (3.5-5.1) mmol/L Carbon Dioxide (22-30) mmol/L BUN (9-20) mg/dL POC Glucose (mg/dL) 141 H 126 H (75-99) mg/dL Osmolality (280-301) mosm/kg Calcium (8.4-10.2) mg/dL Iron (65-175) ug/dL TIBC (228-460) ug/dL % Saturation (15.00-50.00) Transferrin (204.0-354.0) mg/dL Troponin I (0.000-0.034) ng/mL Total Protein (6.3-8.2) g/dL Albumin (3.5-5.0) g/dL Ur Random Sodium (40-220) mmol/L 11/19/21 11/19/21 11/20/21 Range/Units 21:17 Unknown 06:22 RBC (4.30-5.90) m/uL Hgb (13.0-17.5) gm/dL Hct (39.0-53.0) % Lymphocytes # (1.0-4.8) k/uL Sodium 122 L 123 L (137-145) mmol/L Potassium 5.2 H (3.5-5.1) mmol/L Carbon Dioxide 19 L (22-30) mmol/L BUN 24 H (9-20) mg/dL POC Glucose (mg/dL) (75-99) mg/dL Osmolality (280-301) mosm/kg Calcium 8.3 L (8.4-10.2) mg/dL Iron (65-175) ug/dL TIBC (228-460) ug/dL % Saturation (15.00-50.00) Transferrin (204.0-354.0) mg/dL Troponin I (0.000-0.034) ng/mL Total Protein 5.3 L (6.3-8.2) g/dL Albumin 2.9 L (3.5-5.0) g/dL Ur Random Sodium 29 L (40-220) mmol/L 11/20/21/02/03 Range/Units 06:22 06:36 RBC 3.15 L (4.30-5.90) m/uL Hgb 9.3 L (13.0-17.5) gm/dL Hct 28.6 L (39.0-53.0) % Lymphocytes # 0.4 L (1.0-4.8) k/uL Sodium (137-145) mmol/L Potassium (3.5-5.1) mmol/L Carbon Dioxide (22-30) mmol/L BUN (9-20) mg/dL POC Glucose (mg/dL) 103 H (75-99) mg/dL Osmolality (280-301) mosm/kg Calcium (8.4-10.2) mg/dL Iron (65-175) ug/dL TIBC (228-460) ug/dL % Saturation (15.00-50.00) Transferrin (204.0-354.0) mg/dL Troponin I (0.000-0.034) ng/mL Total Protein (6.3-8.2) g/dL Albumin (3.5-5.0) g/dL Ur Random Sodium (40-220) mmol/L Microbiology - Last 24 Hours (Table) 11/18/21 21:10 Urine Culture - Preliminary Urine,Voided Assessment and Plan Plan: Assessment: 1. Hypovolemic hyponatremia improving with normal saline. Sodium level 123 today. Urine sodium 29 and urine osmolality 287. TSH normal. 2. Acute kidney injury mostly prerenal from diuresis and losartan. Improving. Creatinine was 2.73 on admission and is 1.23 today. Creatinine in September 2018 was 0.85. No hydronephrosis noted on kidney ultrasound. 3. Metabolic acidosis secondary to acute kidney injury. Better. 4. Diabetes mellitus. 5. Anemia. Iron deficiency noted. 6. Benign hypertension. Controlled. 7. UTI. On antibiotics. 8. Chronic diastolic CHF. Plan: Resume normal saline at 60 mL an hour. Encouraged oral intake. 1500 mL fluid restriction. Hold losartan and diuretics for now. Follow-up cultures. Repeat sodium level this afternoon. Follow-up echocardiogram.
--- NOTE | 2021-11-20 10:48 | P.CONS ---
History of Present Illness - Reason for Consult Consult date: 11/20/21 wound care - History of Present Illness This is a 71-year-old gentleman being seen in ICU for nonhealing ulceration to the sacrum. Patient has stage II pressure ulcer to the sacrum right and left buttocks and midline. Patient has multiple open ulcerations with minimal granulation significant Slough and nonviable tissues noted. The periwound does show maceration and excoriation. Patient is complaining of tenderness to the site. No tunneling or undermining noted to the ulcerations. Wound edges are attached to the wound base. Patient's past medical history significant for atrial fibrillation, heart failure, COPD, diabetes mellitus, GERD, hyperlipidemia, and hypertension. Review Of Systems: Constitutional: No fever, no chills, no night sweats. No weight change. No weakness, fatigue or lethargy. No daytime sleepiness. Integumentary:reports wounds, no lesions. No rash or pruritus. No unusual bruising. No change in hair or nails. Physical exam: General Appearance: Alert, cooperative, no distress, appears stated age. Skin: See HPI all other Skin color, texture, tugor normal, no rashes or lesions. Neurologic: Alert oriented x3 Assessment: 1. Stage II pressure ulcer sacrum 2. Stage II pressure right buttocks 3. Stage II pressure ulcer left buttocks 4. Diabetes with skin ulceration Plan: 1.Apply honey gel to open ulcerations, zinc to intact skin and sacral border foam. Change dressing Thursday. Utilize appropriate surface to relieve pressure. Through patient every 2 hours. When sitting utilizing air- filled cushion. We'll be happy to see the patient in outpatient setting once he is discharged from the hospital. Thank you for the consultation any questions to contact the wound care center DNP note has been reviewed and discussed with Dr. Flowers and the impression and plan of care has been directed as dictated. Past Medical History Past Medical History: Atrial Fibrillation, Asthma, Chest Pain / Angina, Heart Failure, COPD, Diabetes Mellitus, GERD/Reflux, Hyperlipidemia, Hypertension Additional Past Medical History / Comment(s): Chronic back pain, L leg edema, poor circulation bilateral legs/especially left, NIDDM type II, neuropathy bilateral hands/feet. History of Any Multi-Drug Resistant Organisms: None Reported Past Surgical History: Ear Surgery, Tonsillectomy Additional Past Surgical History / Comment(s): Lesion removed from R ear, colonoscopy Past Anesthesia/Blood Transfusion Reactions: No Reported Reaction Past Psychological History: No Psychological Hx Reported Additional Psychological History / Comment(s): Pt resides alone. He uses a cane to ambulate. He does not own a car, he uses a cab. Smoking Status: Former smoker Past Alcohol Use History: None Reported Additional Past Alcohol Use History / Comment(s): Pt started smoking as a teen and quit in 1984. Past Drug Use History: None Reported - Past Family History Mother Family Medical History: COPD, Coronary Artery Disease (CAD), Myocardial Infarction ([place]) Additional Family Medical History / Comment(s): Pt does not know at what age mother had [place]. She was a smoker. Father Family Medical History: COPD, Coronary Artery Disease (CAD), Myocardial Infarction ([place]) Additional Family Medical History / Comment(s): Father had [place] but pt does not know at what age. Father was a smoker. Medications and Allergies Home Medications Medication Instructions Recorded Confirmed Type Gabapentin [Neurontin] 300 mg PO TID 10/04/18 11/18/21 History HYDROcodone/APAP 10-325MG [Cosby 1 tab PO TID PRN 10/04/18 11/18/21 History 10-325] Simvastatin [Zocor] 20 mg PO HS 10/04/18 11/18/21 History Spironolactone [Aldactone] 25 mg PO DAILY 10/04/18 11/18/21 History Famotidine [Pepcid] 40 mg PO DAILY 06/15/20 11/18/21 History sitaGLIPtin PHOS/metFORMIN HCL 1 tab PO BID 06/15/20 11/18/21 History [Janumet 50-1,000 mg Tablet] Aspirin EC [Ecotrin Low Dose] 81 mg PO DAILY 11/18/21 11/18/21 History Cephalexin [Keflex] 500 mg PO BID 11/18/21 11/18/21 History Furosemide [Lasix] 20 mg PO TID 11/18/21 11/18/21 History Losartan [Cozaar] 25 mg PO DAILY 11/18/21 11/18/21 History Niacin [Niacin ER] 500 mg PO DAILY 11/18/21 11/18/21 History Tamsulosin [Flomax] 0.4 mg PO DAILY 11/18/21 11/18/21 History Allergies Allergy/AdvReac Type Severity Reaction Status Date / Time No Known Allergies Allergy Verified 11/18/21 21:40 Physical Exam Vitals: Vital Signs Temp Pulse Resp BP Pulse Ox 11/20/21 10:00 75 18 119/63 98 11/20/21 09:00 66 18 130/62 93 L 11/20/21 08:00 98.2 F 57 L 16 136/95 95 11/20/21 07:00 70 19 127/68 92 L 11/20/21 06:00 73 14 114/57 91 L 11/20/21 05:00 74 12 119/54 94 L 11/20/21 04:00 97.7 F 61 16 119/59 93 L 11/20/21 03:00 60 21 117/62 94 L 11/20/21 02:00 69 20 118/62 95 11/20/21 01:00 65 14 115/74 94 L 11/20/21 00:00 97.9 F 66 14 112/76 95 11/19/21 23:00 75 17 131/54 92 L 11/19/21 22:04 61 10 L 131/54 95 11/19/21 22:00 77 11 L 142/59 95 11/19/21 21:00 57 L 16 138/84 96 11/19/21 20:00 97.4 F L 60 18 126/72 96 11/19/21 19:00 79 19 127/64 90 L 11/19/21 18:00 72 16 129/71 94 L 11/19/21 17:00 58 L 18 138/60 96 11/19/21 16:00 97.9 F 67 15 127/60 96 11/19/21 15:00 60 14 130/55 93 L 11/19/21 14:00 50 L 16 128/82 94 L 11/19/21 13:00 55 L 18 126/76 95 11/19/21 12:00 98 F 57 L 16 125/60 97 11/19/21 11:00 74 19 120/50 96 Intake and Output 11/19/21 11/20/21 11/20/21 22:59 06:59 14:59 Intake Total 345 0 290 Output Total 400 0 0 Balance -55 0 290 Intake: IV 225 0 0 Dextrose 5% in Water 1, 225 0 0 000 ml @ 75 mls/hr IV . [id number] [facility] Rx#:[id number] Intake, IV Titration 0 50 Amount Dextrose 5% in Water 1, 0 000 ml @ 75 mls/hr IV . [id number] [facility] Rx#:[id number] cefTRIAXone 1 gm In 50 Sodium Chloride 0.9% 50 ml @ 100 mls/hr IVPB Q24HR [facility] Rx#:[id number] Oral 120 240 Output: Urine 400 0 0 Post Void Residual 0 Other: # Voids 0 1 1 # Bowel Movements 1 Weight 131 kg Results CBC & Chem 7: 11/20/21 06:22 11/20/21 06:22 Labs: Abnormal Lab Results - Last 24 Hours (Table) 11/19/21 11/19/21 11/19/21 Range/Units 09:58 10:55 11:24 RBC (4.30-5.90) m/uL Hgb (13.0-17.5) gm/dL Hct (39.0-53.0) % Lymphocytes # (1.0-4.8) k/uL Sodium 120 L (137-145) mmol/L Potassium (3.5-5.1) mmol/L Carbon Dioxide (22-30) mmol/L BUN (9-20) mg/dL POC Glucose (mg/dL) 127 H (75-99) mg/dL Osmolality 267 L (280-301) mosm/kg Calcium (8.4-10.2) mg/dL Iron 11 L (65-175) ug/dL TIBC 224 L (228-460) ug/dL % Saturation 4.82 L (15.00-50.00) Transferrin 160.0 L (204.0-354.0) mg/dL Troponin I 0.047 H* (0.000-0.034) ng/mL Total Protein (6.3-8.2) g/dL Albumin (3.5-5.0) g/dL Ur Random Sodium (40-220) mmol/L 11/19/21 11/19/21 11/19/21 Range/Units 16:25 16:46 20:18 RBC (4.30-5.90) m/uL Hgb (13.0-17.5) gm/dL Hct (39.0-53.0) % Lymphocytes # (1.0-4.8) k/uL Sodium 122 L (137-145) mmol/L Potassium (3.5-5.1) mmol/L Carbon Dioxide (22-30) mmol/L BUN (9-20) mg/dL POC Glucose (mg/dL) 141 H 126 H (75-99) mg/dL Osmolality (280-301) mosm/kg Calcium (8.4-10.2) mg/dL Iron (65-175) ug/dL TIBC (228-460) ug/dL % Saturation (15.00-50.00) Transferrin (204.0-354.0) mg/dL Troponin I (0.000-0.034) ng/mL Total Protein (6.3-8.2) g/dL Albumin (3.5-5.0) g/dL Ur Random Sodium (40-220) mmol/L 11/19/21 11/19/21 11/20/21 Range/Units 21:17 Unknown 06:22 RBC (4.30-5.90) m/uL Hgb (13.0-17.5) gm/dL Hct (39.0-53.0) % Lymphocytes # (1.0-4.8) k/uL Sodium 122 L 123 L (137-145) mmol/L Potassium 5.2 H (3.5-5.1) mmol/L Carbon Dioxide 19 L (22-30) mmol/L BUN 24 H (9-20) mg/dL POC Glucose (mg/dL) (75-99) mg/dL Osmolality (280-301) mosm/kg Calcium 8.3 L (8.4-10.2) mg/dL Iron (65-175) ug/dL TIBC (228-460) ug/dL % Saturation (15.00-50.00) Transferrin (204.0-354.0) mg/dL Troponin I (0.000-0.034) ng/mL Total Protein 5.3 L (6.3-8.2) g/dL Albumin 2.9 L (3.5-5.0) g/dL Ur Random Sodium 29 L (40-220) mmol/L 22 11/20/21 Range/Units 06:22 06:36 RBC 3.15 L (4.30-5.90) m/uL Hgb 9.3 L (13.0-17.5) gm/dL Hct 28.6 L (39.0-53.0) % Lymphocytes # 0.4 L (1.0-4.8) k/uL Sodium (137-145) mmol/L Potassium (3.5-5.1) mmol/L Carbon Dioxide (22-30) mmol/L BUN (9-20) mg/dL POC Glucose (mg/dL) 103 H (75-99) mg/dL Osmolality (280-301) mosm/kg Calcium (8.4-10.2) mg/dL Iron (65-175) ug/dL TIBC (228-460) ug/dL % Saturation (15.00-50.00) Transferrin (204.0-354.0) mg/dL Troponin I (0.000-0.034) ng/mL Total Protein (6.3-8.2) g/dL Albumin (3.5-5.0) g/dL Ur Random Sodium (40-220) mmol/L Microbiology - Last 24 Hours (Table) 11/18/21 21:10 Urine Culture - Preliminary Urine,Voided Assessment and Plan (1) Pressure ulcer of sacral region, stage 2 Current Visit: Yes Status: Acute Code(s): L89.152 - PRESSURE ULCER OF SACRAL REGION, STAGE 2 SNOMED Code(s): 65694190787195868 (2) Pressure ulcer of left buttock, stage 2 Current Visit: Yes Status: Acute Code(s): L89.322 - PRESSURE ULCER OF LEFT BUTTOCK, STAGE 2 SNOMED Code(s): 98552854485250027 (3) Stage II pressure ulcer of right buttock Current Visit: Yes Status: Acute Code(s): L89.312 - PRESSURE ULCER OF RIGHT BUTTOCK, STAGE 2 SNOMED Code(s): 57475801349725096 (4) Diabetes with skin ulcer Current Visit: Yes Status: Acute Code(s): E11.622 - TYPE 2 DIABETES MELLITUS WITH OTHER SKIN ULCER; L98.499 - NON-PRESSURE CHRONIC ULCER OF SKIN OF SITES W UNSP SEVERITY SNOMED Code(s): 44232285
[2021-11-20 11:27] LABS: Glucose,Whole Blood 149 mg/dL (75-99)
--- NOTE | 2021-11-20 11:42 | CA ---
Transthoracic Echo Report Name: Richy Jones Age: 71 Gender: M : 1950 Exam Date: 11/20/2021 10:33 Exam Location: Echo Lab Ht (in): 74 Wt (lb): 288 Ordering Physician: Jenny Trevino Attending/Referring Phys: [id number], [employer] Officer Janette Bailey RDCS Procedure CPT: Indications: falls at home, arrhythmia Cardiac Hx: Technical Quality: Fair Contrast 1: Total Dose (mL): Contrast 2: Total Dose (mL): MEASUREMENTS (Male / Female) Normal Values 2D ECHO LV Diastolic Diameter PLAX 4.9 cm 4.2 - 5.9 / 3.9 - 5.3 cm LV Systolic Diameter PLAX 2.5 cm IVS Diastolic Thickness 1.0 cm 0.6 - 1.0 / 0.6 - 0.9 cm LVPW Diastolic Thickness 1.0 cm 0.6 - 1.0 / 0.6 - 0.9 cm LV Relative Wall Thickness 0.4 RV Internal Dim ED PLAX 2.9 cm M-MODE Aortic Root Diameter MM 2.5 cm LA Systolic Diameter MM 3.7 cm LA Ao Ratio MM 1.5 DOPPLER AV Peak Velocity 107.4 cm/s AV Peak Gradient 4.6 mmHg MV Area PHT 3.2 cm??? MR Peak Velocity 121.8 cm/s MR Peak Gradient 5.9 mmHg Mitral E Point Velocity 123.6 cm/s Mitral A Point Velocity 52.2 cm/s Mitral E to A Ratio 2.4 MV Deceleration Time 239.7 ms TR Peak Velocity 174.6 cm/s TR Peak Gradient 12.2 mmHg Right Ventricular Systolic Press 16.5 mmHg FINDINGS Left Ventricle Normal Left ventricular size, wall thickness, systolic function with no obvious regional wall motion abnormalities. Normal Left ventricular diastolic filling pattern. Left ventricular ejection fraction is estimated at 55-60_ %. Right Ventricle The right ventricle is normal in size and function. Right Atrium The right atrium is normal in size. Left Atrium The left atrium is normal in size. Mitral Valve Structurally normal mitral valve without significant stenosis or prolapse. There is mild mitral regurgitation. Aortic Valve Structurally normal aortic valve without significant sclerosis or stenosis. There is no aortic regurgitation. Tricuspid Valve Structurally normal tricuspid valve without significant stenosis. Pulmonary artery systolic pressure is normal. Mild tricuspid regurgitation. Pulmonic Valve Structurally normal pulmonic valve without significant stenosis. There is no pulmonic regurgitation. Pericardium Normal pericardium without effusion. Aorta Normal aortic root dimension. CONCLUSIONS #1. Suboptimal view with off axis imaging. #2. Grossly normal left ventricular size and wall thickness with preserved LV function without any regional wall motion abnormalities. #3. Mild tricuspid regurgitation and mild mitral regurgitation Previewed by: Dr. Sachin Benites MD (Electronically Signed) Final Date: 20 November 2021 11:41
[2021-11-20 14:15] LABS: Potassium 5.5 mmol/L (3.5-5.1)
[2021-11-20] MEDS ORDERED: SODIUM ZIRCONIUM CYCLOSILICATE 10 GM PACKET PO ONE ×2 (14:23→20:45)
[2021-11-20] MEDS ORDERED: INSULIN REGULAR 100 UNIT/ML VIAL (IV) IV ONE (14:24)
[2021-11-20] MEDS ORDERED: DEXTROSE 50% SYRINGE 50 ML IVP STA (14:24)
[2021-11-20 16:44] LABS: Glucose,Whole Blood 77 mg/dL (75-99)
[2021-11-20 19:23] LABS: Calcium 8.1 mg/dL (8.4-10.2); Potassium 5.2 mmol/L (3.5-5.1)
[2021-11-20 20:18] LABS: Glucose,Whole Blood 193 mg/dL (75-99)
[2021-11-20] MEDS: ATORVASTATIN 10 MG TAB PO SCH (20:50)
[2021-11-20] MEDS: SODIUM POLYSTYRENE SULFONATE 15 GM/60 ML BOTTLE PO SCH (21:27)
--- NOTE | 2021-11-20 21:53 | PN ---
PROGRESS NOTE This is a 71-year-old white male admitted with severe hyponatremia. Remains on 60 mL/hour of normal saline. He is much more alert today. His sodium is up to 125, potassium 5.2, BUN 22, creatinine 1.11. Sugars are mid 100s. Calcium is 8.1. He is giving appropriate answers. Vitals appear to be stable. Saturation 97 on room air. Blood pressure 149/62, temperature 98.2, respiratory rate 20 to 23. Cardiovascular S1, S2. Lungs with mild rales at the bases. Hematology negative Homans. Psych fair mood and affect. Will get consult for a non-healing ulceration to the sacrum with wound care with Dr. Flowers stage II pressure of the sacrum and buttocks. Apply Medihoney to the open ulcerations, zinc. Change dressing Thursday, Thursday and Thursday with Medihoney. He had an echocardiogram today which showed ejection fraction 55% to 60%. Unremarkable echo. Good ejection fractions. has been seeing him for hyponatremia. Renal function has improved up to 125. No nausea and vomiting. as mentioned above. ASSESSMENT: 1. Hypovolemic hyponatremia. 2. Acute kidney injury secondary from diuresis losartan. Creatinine is down from 2.73 to 1.23. 3. Metabolic acidosis. 4. Diabetes mellitus. 5. Anemia. 6. Iron deficiency. 7. Benign hypertension. 8. Urinary tract infection, on antibiotics. 9. Chronic diastolic heart failure. Fluid restriction of 1500 mL. Remain on IV antibiotics for UTI. Normal saline at 60/hour. Follow up on cultures. Echo was normal. Prognosis guarded. MMODL / IJN: [id number] /
[2021-11-21] MEDS: SODIUM CHLORIDE 0.9% 1,000 ML IV SCH ×2 (04:41→22:41)
[2021-11-21 05:40] LABS: Glucose,Whole Blood 104 mg/dL (75-99)
[2021-11-21] MEDS: INSULIN ASPART (NovoLOG) 100 UNIT/ML VIAL SQ SCH ×4 (05:50→19:57)
[2021-11-21 07:44] LABS: Basophils % (A) 1 %; Eosinophils # (A) 0.2 k/uL (0-0.7); Eosinophils % (A) 4 %; HCT 28.4 % (39.0-53.0); HGB 9.3 gm/dL (13.0-17.5); Lymphocytes # (A) 0.6 k/uL (1.0-4.8); Lymphocytes % (A) 13 %; MCH 29.5 pg (25.0-35.0); MCHC 32.6 g/dL (31.0-37.0); MCV 90.4 fL (80.0-100.0); Mean Platelet Volume 6.8; Monocytes # (A) 0.4 k/uL (0-1.0); Monocytes % (A) 8 %; Neutrophils # (A) 3.5 k/uL (1.3-7.7); Neutrophils % (A) 73 %; Platelet Count 194 k/uL (150-450); RBC 3.14 m/uL (4.30-5.90); RDW 13.7 % (11.5-15.5); WBC 4.8 k/uL (3.8-10.6)
[2021-11-21 08:07] LABS: ALT 16 U/L (4-49); AST 27 U/L (17-59); African American GFR (CKD) >90 (>60 ml/min/1.73 sqM); Alkaline Phosphatase 56 U/L (38-126); Anion Gap 10 mmol/L; Blood Urea Nitrogen 15 mg/dL (9-20); Calcium 8.1 mg/dL (8.4-10.2); Carbon Dioxide 20 mmol/L (22-30); Chloride 98 mmol/L (98-107); Glucose 96 mg/dL (74-99); Magnesium 1.3 mg/dL (1.6-2.3); Non-African American GFR(CKD) 85 (>60 ml/min/1.73 sqM); Potassium 4.7 mmol/L (3.5-5.1); Sodium 128 mmol/L (137-145); Total Bilirubin 0.2 mg/dL (0.2-1.3); Total Protein 5.5 g/dL (6.3-8.2)
[2021-11-21] MEDS: TAMSULOSIN 0.4 MG CAP.ER.24H PO SCH (09:13)
[2021-11-21] MEDS: ASPIRIN 81 MG PO SCH (09:13)
[2021-11-21] MEDS: FAMOTIDINE 20 MG TAB PO SCH (09:13)
[2021-11-21] MEDS: GABAPENTIN 300 MG CAP PO SCH ×3 (09:13→22:41)
[2021-11-21] MEDS: ENOXAPARIN 40 MG/0.4 ML SYRINGE SQ SCH (09:13)
--- NOTE | 2021-11-21 10:10 | P.PN ---
Subjective Patient is seen in follow-up for hyponatremia and acute kidney injury. Renal function improving. Sodium level 128 this morning. Oral intake fair. No vomiting or diarrhea. Hemodynamically stable. On room air. Vital signs are stable. General: Awake. No acute distress. HEENT: Head exam is unremarkable. LUNGS: Breath sounds decreased. HEART: Rate and Rhythm are regular. ABDOMEN: Soft, no distention. EXTREMITITES: Trace edema. Objective - Vital Signs Vital signs: Vital Signs Temp 97.5 F L 11/21/21 09:10 Pulse 62 11/21/21 09:10 Resp 18 11/21/21 09:10 BP 147/67 11/21/21 09:10 Pulse Ox 99 11/21/21 09:10 FiO2 Intake & Output 11/20/21 11/21/21 11/21/21 18:59 06:59 18:59 Intake Total 1550 300 240 Output Total 0 250 Balance 1550 50 240 Intake: IV 0 Dextrose 5% in Water 1, 0 000 ml @ 75 mls/hr IV . [id number] [facility] Rx#:[id number] Intake, IV Titration 590 Amount Sodium Chloride 0.9% 1, 540 000 ml @ 60 mls/hr IV . [id number] [facility] Rx#:[id number] cefTRIAXone 1 gm In 50 Sodium Chloride 0.9% 50 ml @ 100 mls/hr IVPB Q24HR [facility] Rx#:[id number] Oral 960 300 240 Output: Urine 0 250 Other: Voiding Method Diaper Diaper External Catheter External Catheter # Voids 1 2 - Labs CBC & Chem 7: 11/21/21 07:28 11/21/21 07:28 Labs: Abnormal Lab Results - Last 24 Hours (Table) 11/20/21 11/20/21 11/20/21 Range/Units 11:26 13:57 18:48 RBC (4.30-5.90) m/uL Hgb (13.0-17.5) gm/dL Hct (39.0-53.0) % Lymphocytes # (1.0-4.8) k/uL Sodium 125 L 125 L (137-145) mmol/L Potassium 5.5 H 5.2 H (3.5-5.1) mmol/L Chloride 95 L (98-107) mmol/L Carbon Dioxide (22-30) mmol/L BUN 22 H (9-20) mg/dL Glucose 124 H (74-99) mg/dL POC Glucose (mg/dL) 149 H (75-99) mg/dL Calcium 8.1 L (8.4-10.2) mg/dL Magnesium (1.6-2.3) mg/dL Total Protein (6.3-8.2) g/dL Albumin (3.5-5.0) g/dL 11/20/21 11/21/21 11/21/21 Range/Units 20:16 05:36 07:28 RBC (4.30-5.90) m/uL Hgb (13.0-17.5) gm/dL Hct (39.0-53.0) % Lymphocytes # (1.0-4.8) k/uL Sodium 128 L (137-145) mmol/L Potassium (3.5-5.1) mmol/L Chloride (98-107) mmol/L Carbon Dioxide 20 L (22-30) mmol/L BUN (9-20) mg/dL Glucose (74-99) mg/dL POC Glucose (mg/dL) 193 H 104 H (75-99) mg/dL Calcium 8.1 L (8.4-10.2) mg/dL Magnesium 1.3 L (1.6-2.3) mg/dL Total Protein 5.5 L (6.3-8.2) g/dL Albumin 3.0 L (3.5-5.0) g/dL 11/21/21 Range/Units 07:28 RBC 3.14 L (4.30-5.90) m/uL Hgb 9.3 L (13.0-17.5) gm/dL Hct 28.4 L (39.0-53.0) % Lymphocytes # 0.6 L (1.0-4.8) k/uL Sodium (137-145) mmol/L Potassium (3.5-5.1) mmol/L Chloride (98-107) mmol/L Carbon Dioxide (22-30) mmol/L BUN (9-20) mg/dL Glucose (74-99) mg/dL POC Glucose (mg/dL) (75-99) mg/dL Calcium (8.4-10.2) mg/dL Magnesium (1.6-2.3) mg/dL Total Protein (6.3-8.2) g/dL Albumin (3.5-5.0) g/dL Microbiology - Last 24 Hours (Table) 11/19/21 10:55 Blood Culture Gram Stain - Preliminary Blood 11/19/21 10:55 Blood Culture - Final Blood 11/18/21 21:10 Urine Culture - Preliminary Urine,Voided Gram Neg Bacilli Assessment and Plan Plan: Assessment: 1. Hypovolemic hyponatremia improving with normal saline. Sodium level 128 today. Urine sodium 29 and urine osmolality 287. TSH normal. 2. Acute kidney injury mostly prerenal from diuresis and losartan. Improving. Creatinine was 2.73 on admission and is 1.23 today. Creatinine in September 2018 was 0.85. No hydronephrosis noted on kidney ultrasound. 3. Metabolic acidosis secondary to acute kidney injury. 4. Diabetes mellitus. 5. Anemia. Iron deficiency noted. 6. Benign hypertension. Controlled. 7. UTI. On antibiotics. Urine culture positive for gram-negative bacilli. 8. Chronic diastolic CHF. 9. Hypomagnesemia from poor intake. 10. Hyperkalemia secondary to acute kidney injury and acidosis. Improved with medical management. Plan: Continue normal saline at 60 mL an hour. Encouraged oral intake. 1500 mL fluid restriction. Hold losartan and diuretics for now. Follow-up cultures. Replace magnesium. Add IV iron. Add oral bicarbonate.
--- NOTE | 2021-11-21 10:59 | P.PN ---
Subjective Progress Note Date: 11/21/21 This is a 71-year-old male patient, essentially poor historian who came into the emergency room because of shortness of breath. The patient was having generalized weakness and he fell at home. Initially didn't want to come into the hospital and later on he called EMS. He was brought into the ED and he was found to have significantly abnormal blood work in addition to possible UTI and for that reason the patient got treated and the patient got admitted to the intensive care unit. The patient was feeling tired and he was unable to stand up and he fell forward. Denied having any injuries to his body or skeletal system. No chills. No fever. No chest pain. No shortness of breath. The patient's initial blood work in the emergency department revealed a white cell count of 6.7 with hemoglobin 9.2, platelet count was at 164, the UA was abnormal consistent with underlying UTI with clumps of white cells, normal coagulation profile, the patient's proBNP level was 1500 with a lactic acid level of 1.0. The patient also had significant abnormalities in his electrolytes, his sodium was 114 with a potassium level of 6.3 and a chloride of 87 with a bicarb of 17 and a anion gap of 10. Creatinine was at 2.7 with a mean of 43. The patient was started on IV fluids. The patient was given 1 L normal saline bolus and he was maintained on 20 mL an hour of normal saline. Sodium levels currently is at 117 and the potassium level dropped down to 5.0 and the patient got decreased treatment for his acute hyperkalemia with Kayexalate and calcium gluconate and insulin with D50. As such, the potassium level dropped back down to 5.0. Creatinine is down to 2.2 and the BUN is at 39. Glucose is at 104. The chest x-ray shows no acute abnormalities. The CAT scan of the brain is not showing any acute abnormalities. The patient was given IV Rocephin as an empiric antibiotic coverage. He received only 1 dose. Cultures are still pending for now. 11/20/2021, the patient is awake and alert and communicating. Slightly improved compared to yesterday. He was profoundly weak and a time of admission and he was also hyponatremic and he was suspected to have an UTI. Sodium level was as low as 114. The patient was placed on normal saline. The sodium level came up to 120 to yesterday 122. Following that he was started on D5 water and this morning, nephrology opted to put him back on normal saline at the rate of 60 mL an hour. Most recent sodium level is at 123. At the same time, the patient demonstrated improvement in her renal function in the creatinine is down to 1.23. His serum bicarb is at 19. Doing well. No ulcer ascitic complaints. His potassium level is down to 5.2. He is on IV Rocephin. Cultures are still pending for now. There is a concern for an underlying UTI. The patient is afebrile. The patient is hemodynamically stable. The cardiac rhythm however is of normal. The patient is bradycardic at the rate of 57 and there may be a high degree AV block. A 12-lead EKG will be obtained to evaluate this abnormality. His pulse ox on room air is 93%. X9 2021, the patient's sodium level is up to 128. He is on normal saline at the rate of 60 mL an hour. Doing well. On room air oxygen. Still having generalized weakness although this is improved. Awake and alert. Communicating. The patient has a creatinine of 0.8 with a BUN of 15. White cell count of 4.8. Urine cultures showing gram-negative bacillus and the patient remains on IV Rocephin. Objective - Vital Signs Vital signs: Vital Signs Temp 97.5 F L 11/21/21 09:10 Pulse 62 11/21/21 09:10 Resp 18 11/21/21 09:10 BP 147/67 11/21/21 09:10 Pulse Ox 99 11/21/21 09:10 FiO2 Intake & Output 11/20/21 11/21/21 11/21/21 18:59 06:59 18:59 Intake Total 1550 300 240 Output Total 0 250 Balance 1550 50 240 Intake: IV 0 Dextrose 5% in Water 1, 0 000 ml @ 75 mls/hr IV . [id number] [facility] Rx#:[id number] Intake, IV Titration 590 Amount Sodium Chloride 0.9% 1, 540 000 ml @ 60 mls/hr IV . [id number] [facility] Rx#:[id number] cefTRIAXone 1 gm In 50 Sodium Chloride 0.9% 50 ml @ 100 mls/hr IVPB Q24HR [facility] Rx#:[id number] Oral 960 300 240 Output: Urine 0 250 Other: Voiding Method Diaper Diaper External Catheter External Catheter # Voids 1 2 - Exam General Impression: Alert and oriented x3, not in acute distress, currently on room air oxygen HEENT: Normocephalic atraumatic, extra-ocular movements intact, pupils equal and reactive to light bilaterally, mucous membranes moist. Cardiovascular: Heart regular rate and rhythm Chest: Able to complete full sentences, no retractions, no tachypnea Abdomen: abdomen soft, non-tender, non-distended, no organomegaly Musculoskeletal: Pulses present and equal in all extremities, nonpitting edema to the bilateral lower extremities Motor: no focal deficits noted Neurological: CN II-XII grossly intact, no focal motor or sensory deficits noted Skin: Intact with no visualized rashes, the patient has stage II ulcers on his buttocks, no active drainage, no cellulitis Psych: Normal affect and mood - Labs CBC & Chem 7: 11/21/21 07:28 11/21/21 07:28 Labs: Abnormal Lab Results - Last 24 Hours (Table) 11/20/21 11/20/21 11/20/21 Range/Units 11:26 13:57 18:48 RBC (4.30-5.90) m/uL Hgb (13.0-17.5) gm/dL Hct (39.0-53.0) % Lymphocytes # (1.0-4.8) k/uL Sodium 125 L 125 L (137-145) mmol/L Potassium 5.5 H 5.2 H (3.5-5.1) mmol/L Chloride 95 L (98-107) mmol/L Carbon Dioxide (22-30) mmol/L BUN 22 H (9-20) mg/dL Glucose 124 H (74-99) mg/dL POC Glucose (mg/dL) 149 H (75-99) mg/dL Calcium 8.1 L (8.4-10.2) mg/dL Magnesium (1.6-2.3) mg/dL Total Protein (6.3-8.2) g/dL Albumin (3.5-5.0) g/dL 11/20/21 11/21/21 11/21/21 Range/Units 20:16 05:36 07:28 RBC (4.30-5.90) m/uL Hgb (13.0-17.5) gm/dL Hct (39.0-53.0) % Lymphocytes # (1.0-4.8) k/uL Sodium 128 L (137-145) mmol/L Potassium (3.5-5.1) mmol/L Chloride (98-107) mmol/L Carbon Dioxide 20 L (22-30) mmol/L BUN (9-20) mg/dL Glucose (74-99) mg/dL POC Glucose (mg/dL) 193 H 104 H (75-99) mg/dL Calcium 8.1 L (8.4-10.2) mg/dL Magnesium 1.3 L (1.6-2.3) mg/dL Total Protein 5.5 L (6.3-8.2) g/dL Albumin 3.0 L (3.5-5.0) g/dL 11/21/21 Range/Units 07:28 RBC 3.14 L (4.30-5.90) m/uL Hgb 9.3 L (13.0-17.5) gm/dL Hct 28.4 L (39.0-53.0) % Lymphocytes # 0.6 L (1.0-4.8) k/uL Sodium (137-145) mmol/L Potassium (3.5-5.1) mmol/L Chloride (98-107) mmol/L Carbon Dioxide (22-30) mmol/L BUN (9-20) mg/dL Glucose (74-99) mg/dL POC Glucose (mg/dL) (75-99) mg/dL Calcium (8.4-10.2) mg/dL Magnesium (1.6-2.3) mg/dL Total Protein (6.3-8.2) g/dL Albumin (3.5-5.0) g/dL Microbiology - Last 24 Hours (Table) 11/19/21 10:55 Blood Culture Gram Stain - Preliminary Blood 11/19/21 10:55 Blood Culture - Final Blood 11/18/21 21:10 Urine Culture - Preliminary Urine,Voided Gram Neg Bacilli Assessment and Plan Plan: Generalized weakness, likely multifactorial due to a combination of electrode disturbance, hyponatremia and possibly an underlying UTI. Got moved out of the intensive care unit yesterday. His sodium level is up to 128. He is also receiving treatment for an underlying UTI. Acute hyponatremia with a sodium level of 114, improving with normal saline. This is a hypochloremic hypovolemic hypernatremia, sodium level is up to 128 Acute kidney injury, improving, secondary to intravascular depletion /dehydration, kidney function is back to normal Acute hyperkalemia improving , back to normal Chronic atrial fibrillation, rate controlled and the patient does not take any form of anticoagulants for now. There is also concern for a high degree AV block. A 12-lead EKG will be repeated today. COPD CHF with preserved LV function. ProBNP is slightly elevated yet that is no evidence of any significant pulmonary edema Diabetes mellitus Hyperlipidemia Peripheral vascular disease Diabetic peripheral neuropathy the patient has had chronic difficulty mobility and gait and the patient has been essentially sedentary, trying to move around with the help of a walker. Acid reflux Pressure wounds on his buttock, stage II Plan IV fluids to 60 mL an hour normal saline Monitor sodium level is up to 128 Urine cultures and blood cultures pending monitor patient has a gram-negative bacillus in the urine currently on IV Rocephin Provide the patient incentive spirometer currently on room air oxygen Flomax 0.4 mg by mouth daily Hold diuretics Lovenox 40 mg subcu for DVT prophylaxis wound care institutional asset manager to assess his living situation and make further recommendations.
[2021-11-21 12:04] LABS: Glucose,Whole Blood 149 mg/dL (75-99)
--- NOTE | 2021-11-21 12:08 | CDI ---
Documentation Clarification Form Date: 11/21/2021 11:49:25 AM From: Lisandra Baumann RN CCDS Admit Date: 11/18/2021 10:25:00 PM Patient Name: Richy Jones Visit Number: [id number] Discharge Date: ATTENTION: The Clinical Documentation Specialists (CDI) and [facility] Coding Staff appreciate your assistance in clarifying documentation. Please respond to the clarification below the line at the bottom and electronically sign. The CDI & [facility] Coding staff will review the response and follow-up if needed. Please note: Queries are made part of the Legal Health Record. If you have any questions, please contact the author of this message via ITS. Dr. Kyle Amado The Registered Dietitian assessment on 11/19 indicates this patient has increased nutrient needs, protein, calories, vitamin c and zinc. Based on this information and the findings below, is there an additional diagnosis that is clinically appropriate for this patient? History/Risk Factors: 71-year-old male presents to the ED for shortness of breath, currently being treated for UTI with increased weakness. Medical History: DM 2, CHF, HTN, Asthma and GERD. 11/18, ED note. Clinical Indicators: RD Consult Assessment: Current BMI: 35.2kg Nutrition Intake: Fair; Percent consumed: 50-75%; Heart Healthy diet; Appetite: poor. Physical Findings: Hypermetabolism Wounds Stage 2 bilateral buttocks. Estimated Nutritional Needs Kcals: Energy needs [id number] kcal Estimated Protein needs: Estimated protein range 1.2 1.5 grams/kg. Estimated Protein needs: 110 137 grams/day Estimated Fluid needs: Fluid formula 1 ml/Kcal: Estimated fluid needs 2168 mls/day Nutritional Diagnosis: Nutrient: Increased nutrient needs. Specific Nutrient: protein, calories, vitamin C and Zinc Diagnosis: Related to: Increased metabolic demand for wound healing. As Evidenced by: Pressure injury. Treatment: Dietary Consult: see above Supplements: Glucerna TID Monitor PO Intake, Monitor supplement intake and acceptance Lab monitoring: Chemistry Is there an additional diagnosis that is clinically appropriate for this patient? [ ] Moderate Protein-Calorie Malnutrition [ ] Severe Protein-Calorie Malnutrition [ ] Other condition, please specify [ ] Unable to Determine (Template Last Revised: August 2020) MTDD
[2021-11-21] MEDS: MAGNESIUM SULFATE-D5W PMX 1 GM in DEXTROSE/WATER 1 100ML.BAG IVPB SCH ×2 (12:42→16:19)
[2021-11-21] MEDS: SODIUM BICARBONATE TAB 650 MG TAB PO SCH ×2 (12:43→19:57)
[2021-11-21 13:31] VITALS: BMI 35.2
[2021-11-21] MEDS: SODIUM FERRIC GLUCONAT-SUCROSE 125 MG in SODIUM CHLORIDE 0.9% 100 ML IVPB SCH (14:01)
[2021-11-21 16:17] LABS: Glucose,Whole Blood 138 mg/dL (75-99)
[2021-11-21 19:29] LABS: Glucose,Whole Blood 149 mg/dL (75-99)
[2021-11-21] MEDS: ATORVASTATIN 10 MG TAB PO SCH (19:57)
[2021-11-21] MEDS: guaiFENesin SYRUP 100MG/5ML 200 MG/10 ML CUP PO PRN (20:00)
--- NOTE | 2021-11-21 22:51 | P.PN ---
Subjective Progress Note Date: 11/20/21 Principal diagnosis: Urinary tract infection Patient is a 71-year-old male with multiple comorbidities, brought into the ER for weakness and fall noticed to have elevated potassium and creatinine and did have a positive UA concerning for UTI. On today's evaluation that is 11/20/2021, the patient denies having any fever or any chills, the patient is breathing comfortably no chest pain shortness of cough no abdominal pain no diarrhea Objective - Vital Signs Vital signs: Vital Signs Temp 98 F 11/20/21 12:00 Pulse 66 11/20/21 13:00 Resp 16 11/20/21 13:00 BP 142/67 11/20/21 13:00 Pulse Ox 95 11/20/21 13:00 FiO2 Intake & Output 11/19/21 11/20/21 11/20/21 18:59 06:59 18:59 Intake Total 805 225 770 Output Total 180 400 0 Balance 625 -175 770 Weight 131.7 kg 131 kg Intake: IV 60 225 0 Dextrose 5% in Water 1, 225 0 000 ml @ 75 mls/hr IV . [id number] [facility] Rx#:[id number] Sodium Chloride 0.9% 1, 60 000 ml @ 20 mls/hr IV . Q24H [facility] Rx#:[id number] Intake, IV Titration 425 0 290 Amount Dextrose 5% in Water 1, 0 000 ml @ 75 mls/hr IV . [id number] [facility] Rx#:[id number] Sodium Chloride 0.9% 1, 240 000 ml @ 60 mls/hr IV . [id number] [facility] Rx#:[id number] Sodium Chloride 0.9% 1, 375 000 ml @ 75 mls/hr IV . [id number] [facility] Rx#:[id number] cefTRIAXone 1 gm In 50 50 Sodium Chloride 0.9% 50 ml @ 100 mls/hr IVPB Q24HR [facility] Rx#:[id number] Oral 320 480 Output: Urine 180 400 0 Post Void Residual 0 Other: # Voids 1 1 2 # Bowel Movements 1 - Exam GENERAL DESCRIPTION: An elderly male lying in bed in no distress RESPIRATORY SYSTEM: Unlabored breathing , decreased breath sounds at bases HEART: S1 S2 regular rate and rhythm , ABDOMEN: Soft , no tenderness EXTREMITIES: Bilateral legs are currently wrapped - Labs CBC & Chem 7: 11/21/21 07:28 11/21/21 07:28 Labs: Abnormal Lab Results - Last 24 Hours (Table) 11/19/21 11/19/21 11/19/21 Range/Units 10:55 16:25 16:46 RBC (4.30-5.90) m/uL Hgb (13.0-17.5) gm/dL Hct (39.0-53.0) % Lymphocytes # (1.0-4.8) k/uL Sodium 122 L (137-145) mmol/L Potassium (3.5-5.1) mmol/L Carbon Dioxide (22-30) mmol/L BUN (9-20) mg/dL POC Glucose (mg/dL) 141 H (75-99) mg/dL Calcium (8.4-10.2) mg/dL Iron 11 L (65-175) ug/dL TIBC 224 L (228-460) ug/dL % Saturation 4.82 L (15.00-50.00) Transferrin 160.0 L (204.0-354.0) mg/dL Total Protein (6.3-8.2) g/dL Albumin (3.5-5.0) g/dL Ur Random Sodium (40-220) mmol/L 11/19/21 11/19/21 11/19/21 Range/Units 20:18 21:17 Unknown RBC (4.30-5.90) m/uL Hgb (13.0-17.5) gm/dL Hct (39.0-53.0) % Lymphocytes # (1.0-4.8) k/uL Sodium 122 L (137-145) mmol/L Potassium (3.5-5.1) mmol/L Carbon Dioxide (22-30) mmol/L BUN (9-20) mg/dL POC Glucose (mg/dL) 126 H (75-99) mg/dL Calcium (8.4-10.2) mg/dL Iron (65-175) ug/dL TIBC (228-460) ug/dL % Saturation (15.00-50.00) Transferrin (204.0-354.0) mg/dL Total Protein (6.3-8.2) g/dL Albumin (3.5-5.0) g/dL Ur Random Sodium 29 L (40-220) mmol/L 11/20/21 11/20/21 11/20/21 Range/Units 06:22 06:22 06:36 RBC 3.15 L (4.30-5.90) m/uL Hgb 9.3 L (13.0-17.5) gm/dL Hct 28.6 L (39.0-53.0) % Lymphocytes # 0.4 L (1.0-4.8) k/uL Sodium 123 L (137-145) mmol/L Potassium 5.2 H (3.5-5.1) mmol/L Carbon Dioxide 19 L (22-30) mmol/L BUN 24 H (9-20) mg/dL POC Glucose (mg/dL) 103 H (75-99) mg/dL Calcium 8.3 L (8.4-10.2) mg/dL Iron (65-175) ug/dL TIBC (228-460) ug/dL % Saturation (15.00-50.00) Transferrin (204.0-354.0) mg/dL Total Protein 5.3 L (6.3-8.2) g/dL Albumin 2.9 L (3.5-5.0) g/dL Ur Random Sodium (40-220) mmol/L 11/20/21 11/20/21 Range/Units 11:26 13:57 RBC (4.30-5.90) m/uL Hgb (13.0-17.5) gm/dL Hct (39.0-53.0) % Lymphocytes # (1.0-4.8) k/uL Sodium 125 L (137-145) mmol/L Potassium 5.5 H (3.5-5.1) mmol/L Carbon Dioxide (22-30) mmol/L BUN (9-20) mg/dL POC Glucose (mg/dL) 149 H (75-99) mg/dL Calcium (8.4-10.2) mg/dL Iron (65-175) ug/dL TIBC (228-460) ug/dL % Saturation (15.00-50.00) Transferrin (204.0-354.0) mg/dL Total Protein (6.3-8.2) g/dL Albumin (3.5-5.0) g/dL Ur Random Sodium (40-220) mmol/L Microbiology - Last 24 Hours (Table) 11/19/21 10:55 Blood Culture - Preliminary Blood No Growth after 24 hours 11/18/21 21:10 Urine Culture - Preliminary Urine,Voided Assessment and Plan (1) Urinary tract infection Current Visit: Yes Status: Acute Code(s): N39.0 - URINARY TRACT INFECTION, SITE NOT SPECIFIED SNOMED Code(s): 78444977 Plan: 1patient presented hospital with weakness fall which is likely multifactorial in this patient did have significant elevated BUN/creatinine possibly prerenal and did have a positive UA concerning for a UTI likely from enteric gram- negative pathogen. 2patient to continue with Rocephin 1 g daily while waiting for the culture to finalize. Time with Patient: Less than 30
--- NOTE | 2021-11-21 22:53 | P.PN ---
Subjective Progress Note Date: 11/21/21 Principal diagnosis: Urinary tract infection and positive blood cultures Patient is a 71-year-old male with multiple comorbidities, brought into the ER for weakness and fall noticed to have elevated potassium and creatinine and did have a positive UA concerning for UTI. On today's evaluation that is 11/21/2021, the patient remains to be afebrile, the patient is breathing comfortably on room air, the patient denies chest pain shortness of cough no abdominal pain no diarrhea Objective - Vital Signs Vital signs: Vital Signs Temp 97.5 F L 11/21/21 12:40 Pulse 83 11/21/21 12:40 Resp 16 11/21/21 12:40 BP 143/72 11/21/21 12:40 Pulse Ox 98 11/21/21 12:40 FiO2 Intake & Output 11/20/21 11/21/21 11/21/21 18:59 06:59 18:59 Intake Total 1550 300 240 Output Total 0 250 300 Balance 1550 50 -60 Intake: IV 0 Dextrose 5% in Water 1, 0 000 ml @ 75 mls/hr IV . [id number] [facility] Rx#:[id number] Intake, IV Titration 590 Amount Sodium Chloride 0.9% 1, 540 000 ml @ 60 mls/hr IV . [id number] [facility] Rx#:[id number] cefTRIAXone 1 gm In 50 Sodium Chloride 0.9% 50 ml @ 100 mls/hr IVPB Q24HR [facility] Rx#:[id number] Oral 960 300 240 Output: Urine 0 250 300 Other: Voiding Method Diaper Diaper External Catheter External Catheter # Voids 1 2 - Exam GENERAL DESCRIPTION: An elderly male lying in bed in no distress RESPIRATORY SYSTEM: Unlabored breathing , decreased breath sounds at bases HEART: S1 S2 regular rate and rhythm , ABDOMEN: Soft , no tenderness EXTREMITIES: Bilateral legs are currently wrapped - Labs CBC & Chem 7: 11/21/21 07:28 11/21/21 07:28 Labs: Abnormal Lab Results - Last 24 Hours (Table) 11/20/21 11/20/21 11/20/21 Range/Units 13:57 18:48 20:16 RBC (4.30-5.90) m/uL Hgb (13.0-17.5) gm/dL Hct (39.0-53.0) % Lymphocytes # (1.0-4.8) k/uL Sodium 125 L 125 L (137-145) mmol/L Potassium 5.5 H 5.2 H (3.5-5.1) mmol/L Chloride 95 L (98-107) mmol/L Carbon Dioxide (22-30) mmol/L BUN 22 H (9-20) mg/dL Glucose 124 H (74-99) mg/dL POC Glucose (mg/dL) 193 H (75-99) mg/dL Calcium 8.1 L (8.4-10.2) mg/dL Magnesium (1.6-2.3) mg/dL Total Protein (6.3-8.2) g/dL Albumin (3.5-5.0) g/dL 11/21/21 11/21/21 11/21/21 Range/Units 05:36 07:28 07:28 RBC 3.14 L (4.30-5.90) m/uL Hgb 9.3 L (13.0-17.5) gm/dL Hct 28.4 L (39.0-53.0) % Lymphocytes # 0.6 L (1.0-4.8) k/uL Sodium 128 L (137-145) mmol/L Potassium (3.5-5.1) mmol/L Chloride (98-107) mmol/L Carbon Dioxide 20 L (22-30) mmol/L BUN (9-20) mg/dL Glucose (74-99) mg/dL POC Glucose (mg/dL) 104 H (75-99) mg/dL Calcium 8.1 L (8.4-10.2) mg/dL Magnesium 1.3 L (1.6-2.3) mg/dL Total Protein 5.5 L (6.3-8.2) g/dL Albumin 3.0 L (3.5-5.0) g/dL 11/21/21 Range/Units 12:03 RBC (4.30-5.90) m/uL Hgb (13.0-17.5) gm/dL Hct (39.0-53.0) % Lymphocytes # (1.0-4.8) k/uL Sodium (137-145) mmol/L Potassium (3.5-5.1) mmol/L Chloride (98-107) mmol/L Carbon Dioxide (22-30) mmol/L BUN (9-20) mg/dL Glucose (74-99) mg/dL POC Glucose (mg/dL) 149 H (75-99) mg/dL Calcium (8.4-10.2) mg/dL Magnesium (1.6-2.3) mg/dL Total Protein (6.3-8.2) g/dL Albumin (3.5-5.0) g/dL Microbiology - Last 24 Hours (Table) 11/19/21 10:55 Blood Culture Gram Stain - Preliminary Blood 11/19/21 10:55 Blood Culture - Final Blood 11/18/21 21:10 Urine Culture - Preliminary Urine,Voided Gram Neg Bacilli Assessment and Plan (1) Urinary tract infection Current Visit: Yes Status: Acute Code(s): N39.0 - URINARY TRACT INFECTION, SITE NOT SPECIFIED SNOMED Code(s): 53592448 Plan: 1patient presented hospital with weakness fall which is likely multifactorial in this patient did have significant elevated BUN/creatinine possibly prerenal and did have a positive UA concerning for a UTI likely from enteric gram- negative pathogen. 2patient has shown clinical improvement and will continue with Rocephin 1 g daily while waiting for the culture to finalize. 3-positive blood culture with gram-positive cocci possible contamination as the patient has no clinical disease to along with it, ID sensitivities pending blood cultures has been repeated Time with Patient: Less than 30
[2021-11-22 06:12] LABS: Glucose,Whole Blood 98 mg/dL (75-99)
[2021-11-22 06:26] LABS: Glucose,Whole Blood 111 mg/dL (75-99)
[2021-11-22] MEDS: INSULIN ASPART (NovoLOG) 100 UNIT/ML VIAL SQ SCH ×4 (06:29→20:57)
--- NOTE | 2021-11-22 08:36 | PN ---
PROGRESS NOTE He is on 1200 mL fluid restriction. Hemoglobin is 9 3, white count 4.8. He is feeling better, is less confused. Sodium 128, potassium 4.7. GFR is 85. Sugars mid 100s. Albumin is 3.0. Being treated for severe hyponatremia and hypovolemia. Renal function is improving. Sodium level is 128 this morning. No vomiting or diarrhea. Stable on room air. Vital signs stable. Afebrile. Psych: Fair mood and affect. Neurologic: Alert and oriented times 3. Ophthalmologic: Pupils equal, round, reactive. Cranial nerves intact. Temp 97.5, pulse 62, respiratory 16 to 18, blood pressure 146/67, O2 99. Labs are reviewed. He has low magnesium, hyponatremia. Urine osmolality is 287. Urine sodium 29. TSH normal. Acute kidney injury from diuresis, losartan. His creatinine is 2.73, now is 1.23 after rehydration. Kidney ultrasound normal. Metabolic acidosis, diabetes mellitus, anemia, iron deficiency, benign hypertension, UTI. Urine culture shows positive gram-negative bacilli. Waiting for final cultures and sensitivity. Chronic diastolic heart failure. Hypomagnesemia poor oral intake. Hyperkalemia secondary to metabolic acidosis, acute tubular injury. Normal saline at 60 an hour, oral intake 1500 mL fluid restriction. Hold Losartan, diuretics. Follow up cultures. Replace magnesium, IV iron, oral sodium bicarbonate. Prognosis guarded. MMODL / IJN: [id number] /
[2021-11-22] MEDS: ASPIRIN 81 MG PO SCH (09:46)
[2021-11-22] MEDS: TAMSULOSIN 0.4 MG CAP.ER.24H PO SCH (09:46)
[2021-11-22] MEDS: FAMOTIDINE 20 MG TAB PO SCH (09:46)
[2021-11-22] MEDS: GABAPENTIN 300 MG CAP PO SCH ×3 (09:46→20:56)
[2021-11-22] MEDS: ENOXAPARIN 40 MG/0.4 ML SYRINGE SQ SCH (09:46)
[2021-11-22] MEDS: SODIUM BICARBONATE TAB 650 MG TAB PO SCH ×2 (09:46→20:56)
--- NOTE | 2021-11-22 10:49 | P.PN ---
Subjective Patient is seen in follow-up for hyponatremia and acute kidney injury. Renal function improved. Sodium level 128 yesterday. Oral intake fair. No vomiting or diarrhea. Hemodynamically stable. On room air. Vital signs are stable. General: Awake. No acute distress. HEENT: Head exam is unremarkable. LUNGS: Breath sounds decreased. HEART: Rate and Rhythm are regular. ABDOMEN: Soft, no distention. EXTREMITITES: Trace edema. Objective - Vital Signs Vital signs: Vital Signs Temp 97.8 F 11/22/21 09:45 Pulse 71 11/22/21 09:45 Resp 16 11/22/21 09:45 BP 135/51 11/22/21 09:45 Pulse Ox 100 11/22/21 09:45 FiO2 Intake & Output 11/21/21 11/22/21 11/22/21 18:59 06:59 18:59 Intake Total 1690 240 240 Output Total 700 225 275 Balance 990 15 -35 Weight 131 kg Intake: Intake, IV Titration 730 Amount Magnesium Sulfate-D5w Pmx 100 1 gm In Dextrose/Water 1 100ml.bag @ 100 mls/hr IVPB Q1H ON LICENSE OF [facility] Rx#: [id number] Sodium Chloride 0.9% 1, 480 000 ml @ 60 mls/hr IV . [id number] [facility] Rx#:[id number] Sodium Ferric Gluconat- 100 Sucrose 125 mg In Sodium Chloride 0.9% 100 ml @ 100 mls/hr IVPB DAILY [facility] Rx#:[id number] cefTRIAXone 1 gm In 50 Sodium Chloride 0.9% 50 ml @ 100 mls/hr IVPB Q24HR [facility] Rx#:[id number] Oral 960 240 240 Output: Urine 700 225 275 Other: Voiding Method Diaper Diaper External Catheter External Catheter # Voids 1 - Labs CBC & Chem 7: 11/21/21 07:28 11/21/21 07:28 Labs: Abnormal Lab Results - Last 24 Hours (Table) 11/21/21 11/21/21 11/21/21 Range/Units 12:03 16:15 19:28 POC Glucose (mg/dL) 149 H 138 H 149 H (75-99) mg/dL 11/22/21 Range/Units 05:59 POC Glucose (mg/dL) 111 H (75-99) mg/dL Microbiology - Last 24 Hours (Table) 11/18/21 21:10 Urine Culture - Final Urine,Voided Escherichia coli 11/19/21 10:55 Blood Culture Gram Stain - Preliminary Blood 11/19/21 10:55 Blood Culture - Final Blood Assessment and Plan Plan: Assessment: 1. Hypovolemic hyponatremia improving with normal saline. Sodium level 128 yesterday. Urine sodium 29 and urine osmolality 287. TSH normal. 2. Acute kidney injury mostly prerenal from diuresis and losartan. Improving. Creatinine was 2.73 on admission and down to 0.88 yesterday. Creatinine in September 2018 was 0.85. No hydronephrosis noted on kidney ultrasound. 3. Metabolic acidosis secondary to acute kidney injury. On oral bicarb. 4. Diabetes mellitus. 5. Anemia. Iron deficiency noted. 6. Benign hypertension. Controlled. 7. UTI. On antibiotics. Urine culture positive for E. coli. 8. Chronic diastolic CHF. 9. Hypomagnesemia from poor intake. Replaced. 10. Hyperkalemia secondary to acute kidney injury and acidosis. Improved with medical management. Plan: Continue normal saline at 60 mL an hour. Encouraged oral intake. 1500 mL fluid restriction. Hold losartan and diuretics for now. Maintain IV iron. Repeat BMP and magnesium level 2-3 days postdischarge. Follow up outpatient in 1 week.
[2021-11-22] MEDS: SODIUM FERRIC GLUCONAT-SUCROSE 125 MG in SODIUM CHLORIDE 0.9% 100 ML IVPB SCH (10:56)
[2021-11-22 11:52] LABS: Glucose,Whole Blood 120 mg/dL (75-99)
--- NOTE | 2021-11-22 12:41 | P.PN ---
Subjective Progress Note Date: 11/22/21 This is a 71-year-old male patient, essentially poor historian who came into the emergency room because of shortness of breath. The patient was having generalized weakness and he fell at home. Initially didn't want to come into the hospital and later on he called EMS. He was brought into the ED and he was found to have significantly abnormal blood work in addition to possible UTI and for that reason the patient got treated and the patient got admitted to the intensive care unit. The patient was feeling tired and he was unable to stand up and he fell forward. Denied having any injuries to his body or skeletal system. No chills. No fever. No chest pain. No shortness of breath. The patient's initial blood work in the emergency department revealed a white cell count of 6.7 with hemoglobin 9.2, platelet count was at 164, the UA was abnormal consistent with underlying UTI with clumps of white cells, normal coagulation profile, the patient's proBNP level was 1500 with a lactic acid level of 1.0. The patient also had significant abnormalities in his electrolytes, his sodium was 114 with a potassium level of 6.3 and a chloride of 87 with a bicarb of 17 and a anion gap of 10. Creatinine was at 2.7 with a mean of 43. The patient was started on IV fluids. The patient was given 1 L normal saline bolus and he was maintained on 20 mL an hour of normal saline. Sodium levels currently is at 117 and the potassium level dropped down to 5.0 and the patient got decreased treatment for his acute hyperkalemia with Kayexalate and calcium gluconate and insulin with D50. As such, the potassium level dropped back down to 5.0. Creatinine is down to 2.2 and the BUN is at 39. Glucose is at 104. The chest x-ray shows no acute abnormalities. The CAT scan of the brain is not showing any acute abnormalities. The patient was given IV Rocephin as an empiric antibiotic coverage. He received only 1 dose. Cultures are still pending for now. 11/20/2021, the patient is awake and alert and communicating. Slightly improved compared to yesterday. He was profoundly weak and a time of admission and he was also hyponatremic and he was suspected to have an UTI. Sodium level was as low as 114. The patient was placed on normal saline. The sodium level came up to 120 to yesterday 122. Following that he was started on D5 water and this morning, nephrology opted to put him back on normal saline at the rate of 60 mL an hour. Most recent sodium level is at 123. At the same time, the patient demonstrated improvement in her renal function in the creatinine is down to 1.23. His serum bicarb is at 19. Doing well. No ulcer ascitic complaints. His potassium level is down to 5.2. He is on IV Rocephin. Cultures are still pending for now. There is a concern for an underlying UTI. The patient is afebrile. The patient is hemodynamically stable. The cardiac rhythm however is of normal. The patient is bradycardic at the rate of 57 and there may be a high degree AV block. A 12-lead EKG will be obtained to evaluate this abnormality. His pulse ox on room air is 93%. 11/21 2021, the patient's sodium level is up to 128. He is on normal saline at the rate of 60 mL an hour. Doing well. On room air oxygen. Still having generalized weakness although this is improved. Awake and alert. Communicating. The patient has a creatinine of 0.8 with a BUN of 15. White cell count of 4.8. Urine cultures showing gram-negative bacillus and the patient remains on IV Rocephin. 11/22/2021, the patient is eating well. No nausea vomiting or diarrhea. No new complaints. The patient on room air oxygen. Awaiting a follow-up sodium level for now. Hemodynamically stable. Remains on antibiotics with Rocephin. Urine culture was positive for E. coli. Blood culture was positive for micrococcus. Objective - Vital Signs Vital signs: Vital Signs Temp 97.8 F 11/22/21 09:45 Pulse 71 11/22/21 09:45 Resp 16 11/22/21 09:45 BP 135/51 11/22/21 09:45 Pulse Ox 100 11/22/21 09:45 FiO2 Intake & Output 11/21/21 11/22/21 11/22/21 18:59 06:59 18:59 Intake Total 1690 240 240 Output Total 700 225 275 Balance 990 15 -35 Weight 131 kg Intake: Intake, IV Titration 730 Amount Magnesium Sulfate-D5w Pmx 100 1 gm In Dextrose/Water 1 100ml.bag @ 100 mls/hr IVPB Q1H [facility] Rx#: [id number] Sodium Chloride 0.9% 1, 480 000 ml @ 60 mls/hr IV . [id number] [facility] Rx#:[id number] Sodium Ferric Gluconat- 100 Sucrose 125 mg In Sodium Chloride 0.9% 100 ml @ 100 mls/hr IVPB DAILY [facility] Rx#:[id number] cefTRIAXone 1 gm In 50 Sodium Chloride 0.9% 50 ml @ 100 mls/hr IVPB Q24HR [facility] Rx#:[id number] Oral 960 240 240 Output: Urine 700 225 275 Other: Voiding Method Diaper Diaper Diaper External Catheter External Catheter External Catheter # Voids 1 - Exam General Impression: Alert and oriented x3, not in acute distress, currently on room air oxygen HEENT: Normocephalic atraumatic, extra-ocular movements intact, pupils equal and reactive to light bilaterally, mucous membranes moist. Cardiovascular: Heart regular rate and rhythm Chest: Able to complete full sentences, no retractions, no tachypnea Abdomen: abdomen soft, non-tender, non-distended, no organomegaly Musculoskeletal: Pulses present and equal in all extremities, nonpitting edema to the bilateral lower extremities Motor: no focal deficits noted Neurological: CN II-XII grossly intact, no focal motor or sensory deficits noted Skin: Intact with no visualized rashes, the patient has stage II ulcers on his buttocks, no active drainage, no cellulitis Psych: Normal affect and mood - Labs CBC & Chem 7: 11/21/21 07:28 11/21/21 07:28 Labs: Abnormal Lab Results - Last 24 Hours (Table) 11/21/21 11/21/21 11/22/21 Range/Units 16:15 19:28 05:59 POC Glucose (mg/dL) 138 H 149 H 111 H (75-99) mg/dL 11/22/21 Range/Units 11:50 POC Glucose (mg/dL) 120 H (75-99) mg/dL Microbiology - Last 24 Hours (Table) 11/19/21 10:55 Blood Culture Gram Stain - Final Blood Blood Culture - Final Micrococcus species 11/18/21 21:10 Urine Culture - Final Urine,Voided Escherichia coli 11/19/21 10:55 Blood Culture - Final Blood Assessment and Plan Plan: Generalized weakness, likely multifactorial due to a combination of electrode disturbance, hyponatremia and possibly an underlying UTI secondary to E. coli. The patient is on IV Rocephin. Sodium levels being monitored. The level from yesterday was up to 128 , awaiting labs from today Acute hyponatremia with a sodium level of 114, improving with normal saline. This is a hypochloremic hypovolemic hypernatremia, sodium level is up to 128 , awaiting labs from today Acute kidney injury, improving, secondary to intravascular depletion/dehydration, kidney function is back to normal Acute hyperkalemia improving , back to normal Chronic atrial fibrillation, rate controlled and the patient does not take any form of anticoagulants for now. There is also concern for a high degree AV bl ock. A 12-lead EKG will be repeated today. COPD CHF with preserved LV function. ProBNP is slightly elevated yet that is no evidence of any significant pulmonary edema Diabetes mellitus Hyperlipidemia Peripheral vascular disease Diabetic peripheral neuropathy the patient has had chronic difficulty mobility and gait and the patient has been essentially sedentary, trying to move around with the help of a walker. Acid reflux Pressure wounds on his buttock, stage II Plan IV fluids to 60 mL an hour normal saline Monitor sodium level is up to 128, awaiting follow-up sodium level from today. Continue Rocephin regarding his E. coli in his urine Hold diuretics for now Wound care Pulmonary critical care services will sign off.
[2021-11-22 13:02] LABS: African American GFR (CKD) >90 (>60 ml/min/1.73 sqM); Anion Gap 6 mmol/L; Blood Urea Nitrogen 13 mg/dL (9-20); Carbon Dioxide 22 mmol/L (22-30); Chloride 100 mmol/L (98-107); Glucose 114 mg/dL (74-99); Non-African American GFR(CKD) 89 (>60 ml/min/1.73 sqM); Potassium 4.8 mmol/L (3.5-5.1); Sodium 128 mmol/L (137-145)
[2021-11-22] MEDS: guaiFENesin SYRUP 100MG/5ML 200 MG/10 ML CUP PO PRN (13:04)
[2021-11-22 14:19] LABS: Magnesium 1.6 mg/dL (1.6-2.3)
[2021-11-22] MEDS ORDERED: TOLVAPTAN 15 MG TABLET PO ONE (14:30)
--- NOTE | 2021-11-22 15:51 | PN ---
PROGRESS NOTE This 71-year-old white male is eating well. No nausea, vomiting. No new complaints. He is on room air. His sodium is still 128, remains steady. He is on UTI medicines. Positive for E coli. He is on Rocephin. Blood culture was positive for micrococcus. Blood pressure 135/51, pulse ox 100, pulse 71, respiratory rate 16 to 18, temperature 97.8. Cardiovascular S1, S2. Lungs clear. GI soft. Hematology negative Homans. Psych fair mood and affect. Neurologic alert and oriented x3. ASSESSMENT: 1. Generalized weakness, multifactorial. 2. Urinary tract infection. 3. Hyponatremia. 4. Escherichia coli. His sodium improved from a level of 114 with normal saline. 1. Hypochloremic hypovolemic hyponatremia. 2. Acute kidney injury, improving, secondary to prerenal renal azotemia. 3. Hyperkalemia is improving. 4. Diabetes mellitus. 5. Hypertension. 6. Peripheral vascular disease. 7. Diabetic neuropathy. 8. Gastroesophageal reflux disease. 9. Stage II pressure ulcer on his buttock. 10.Chronic atrial fibrillation. 11.Possible high-grade AV block. Repeat EKG get Cardiology to see him. 12.He has congestive heart failure with preserved LV function. 13.Severe leg swelling for many months. Prognosis is guarded. His on diuretics are on hold. Wound care. Rocephin UTI. IV fluids at 60. Wait for sodium levels. Continue antibiotic. MMODL / IJN: [id number] /
[2021-11-22 16:38] LABS: Glucose,Whole Blood 153 mg/dL (75-99)
[2021-11-22] MEDS: SODIUM CHLORIDE 0.9% 1,000 ML IV SCH (17:54)
--- NOTE | 2021-11-22 20:02 | P.PN ---
Subjective Progress Note Date: 11/22/21 Principal diagnosis: Urinary tract infection and positive blood cultures Patient is a 71-year-old male with multiple comorbidities, brought into the ER for weakness and fall noticed to have elevated potassium and creatinine and did have a positive UA concerning for UTI. On today's evaluation that is 11/22/2021, the patient continues to be afebrile, the patient is breathing comfortably on room air, the patient denies chest pain shortness of cough, the patient denies abdominal pain no diarrhea Objective - Vital Signs Vital signs: Vital Signs Temp 97.8 F 11/22/21 09:45 Pulse 71 11/22/21 09:45 Resp 16 11/22/21 09:45 BP 135/51 11/22/21 09:45 Pulse Ox 100 11/22/21 09:45 FiO2 Intake & Output 11/21/21 11/22/21 11/22/21 18:59 06:59 18:59 Intake Total 1690 240 240 Output Total 700 225 275 Balance 990 15 -35 Weight 131 kg Intake: Intake, IV Titration 730 Amount Magnesium Sulfate-D5w Pmx 100 1 gm In Dextrose/Water 1 100ml.bag @ 100 mls/hr IVPB Q1H [facility] Rx#: [id number] Sodium Chloride 0.9% 1, 480 000 ml @ 60 mls/hr IV . [id number] [facility] Rx#:[id number] Sodium Ferric Gluconat- 100 Sucrose 125 mg In Sodium Chloride 0.9% 100 ml @ 100 mls/hr IVPB DAILY [facility] Rx#:[id number] cefTRIAXone 1 gm In 50 Sodium Chloride 0.9% 50 ml @ 100 mls/hr IVPB Q24HR [facility] Rx#:[id number] Oral 960 240 240 Output: Urine 700 225 275 Other: Voiding Method Diaper Diaper Diaper External Catheter External Catheter External Catheter # Voids 1 - Exam GENERAL DESCRIPTION: An elderly male lying in bed in no distress RESPIRATORY SYSTEM: Unlabored breathing , decreased breath sounds at bases HEART: S1 S2 regular rate and rhythm , ABDOMEN: Soft , no tenderness EXTREMITIES: Bilateral legs are currently wrapped - Labs CBC & Chem 7: 11/21/21 07:28 11/22/21 11:15 Labs: Abnormal Lab Results - Last 24 Hours (Table) 06/09/22 06/09/22 06/09/22 Range/Units 12:03 16:15 19:28 POC Glucose (mg/dL) 149 H 138 H 149 H (75-99) mg/dL 11/22/21 Range/Units 05:59 POC Glucose (mg/dL) 111 H (75-99) mg/dL Microbiology - Last 24 Hours (Table) 11/19/21 10:55 Blood Culture Gram Stain - Final Blood Blood Culture - Final Micrococcus species 11/18/21 21:10 Urine Culture - Final Urine,Voided Escherichia coli 11/19/21 10:55 Blood Culture - Final Blood Assessment and Plan (1) Urinary tract infection Current Visit: Yes Status: Acute Code(s): N39.0 - URINARY TRACT INFECTION, SITE NOT SPECIFIED SNOMED Code(s): 72876211 Plan: 1patient presented hospital with weakness fall which is likely multifactorial in this patient did have significant elevated BUN/creatinine possibly prerenal and did have a positive UA concerning for a UTI likely from enteric gram- negative pathogen. 2patient has shown clinical improvement and will urine has been finalized E. coli which is sensitive pathogen, patient to continue with Rocephin 1 g daily 3-positive blood culture with gram-positive cocci which has been finalized as micrococcus, possible contamination, repeat blood cultures have been negative so far Time with Patient: Less than 30
[2021-11-22 20:41] LABS: Glucose,Whole Blood 133 mg/dL (75-99)
[2021-11-22] MEDS: ATORVASTATIN 10 MG TAB PO SCH (20:57)
[2021-11-23 06:41] LABS: Glucose,Whole Blood 106 mg/dL (75-99)
[2021-11-23] MEDS: INSULIN ASPART (NovoLOG) 100 UNIT/ML VIAL SQ SCH ×2 (07:11→12:56)
[2021-11-23] MEDS: SODIUM FERRIC GLUCONAT-SUCROSE 125 MG in SODIUM CHLORIDE 0.9% 100 ML IVPB SCH (09:08)
--- NOTE | 2021-11-23 10:54 | P.PN ---
Subjective Patient is seen in follow-up for hyponatremia and acute kidney injury. Renal function improved. Sodium level 128 yesterday. Oral intake fair. No vomiting or diarrhea. Hemodynamically stable. On room air. Vital signs are stable. General: Awake. No acute distress. HEENT: Head exam is unremarkable. LUNGS: Breath sounds decreased. HEART: Rate and Rhythm are regular. ABDOMEN: Soft, no distention. EXTREMITITES: Trace edema. Objective - Vital Signs Vital signs: Vital Signs Temp 98.0 F 11/23/21 04:00 Pulse 77 11/23/21 04:00 Resp 18 11/23/21 04:00 BP 154/81 11/23/21 04:00 Pulse Ox 97 11/23/21 04:00 FiO2 Intake & Output 11/22/21 11/23/21 11/23/21 18:59 06:59 18:59 Intake Total 1890 620 Output Total 1275 1850 450 Balance 615 -1230 -450 Intake: IV 20 Invasive Line 3 20 Intake, IV Titration 810 Amount Sodium Chloride 0.9% 1, 660 000 ml @ 60 mls/hr IV . [id number] [facility] Rx#:[id number] Sodium Ferric Gluconat- 100 Sucrose 125 mg In Sodium Chloride 0.9% 100 ml @ 100 mls/hr IVPB DAILY [facility] Rx#:[id number] cefTRIAXone 1 gm In 50 Sodium Chloride 0.9% 50 ml @ 100 mls/hr IVPB Q24HR [facility] Rx#:[id number] Oral 1080 600 Output: Urine 1275 1850 450 Other: Voiding Method Diaper Diaper External Catheter External Catheter - Labs CBC & Chem 7: 11/21/21 07:28 11/22/21 11:15 Labs: Abnormal Lab Results - Last 24 Hours (Table) 11/22/21 11/22/21 11/22/21 Range/Units 11:15 11:15 11:50 Sodium 128 L (137-145) mmol/L Glucose 114 H (74-99) mg/dL POC Glucose (mg/dL) 120 H (75-99) mg/dL Calcium 8.0 L (8.4-10.2) mg/dL C-Reactive Protein 8.0 H (<1.0) mg/dL 11/22/21 11/22/21 11/23/21 Range/Units 16:22 20:17 06:40 Sodium (137-145) mmol/L Glucose (74-99) mg/dL POC Glucose (mg/dL) 153 H 133 H 106 H (75-99) mg/dL Calcium (8.4-10.2) mg/dL C-Reactive Protein (<1.0) mg/dL Microbiology - Last 24 Hours (Table) 11/21/21 12:00 Blood Culture - Preliminary Blood No Growth after 24 hours 11/19/21 10:55 Blood Culture Gram Stain - Final Blood Blood Culture - Final Micrococcus species Assessment and Plan Plan: Assessment: 1. Hypovolemic hyponatremia improving with normal saline. Sodium level 128 yesterday. Urine sodium 29 and urine osmolality 287. TSH normal. Received a dose of Samsca yesterday. 2. Acute kidney injury mostly prerenal from diuresis and losartan. Improving. Creatinine was 2.73 on admission and down to 0.88 yesterday. Creatinine in September 2018 was 0.85. No hydronephrosis noted on kidney ultrasound. 3. Metabolic acidosis secondary to acute kidney injury. On oral bicarb. 4. Diabetes mellitus. 5. Anemia. Iron deficiency noted. 6. Benign hypertension. Controlled. 7. UTI. On antibiotics. Urine culture positive for E. coli. 8. Chronic diastolic CHF. 9. Hypomagnesemia from poor intake. Replaced. 10. Hyperkalemia secondary to acute kidney injury and acidosis. Improved with medical management. Plan: Off IV fluids. Status post Samsca 11/22/2021. Encouraged oral intake. 1500 mL fluid restriction. Hold losartan and diuretics for now. Maintain IV iron. Repeat BMP and magnesium level 2-3 days postdischarge. Follow up outpatient in 1 week.
[2021-11-23] MEDS: ASPIRIN 81 MG PO SCH (11:01)
[2021-11-23] MEDS: FAMOTIDINE 20 MG TAB PO SCH (11:01)
[2021-11-23] MEDS: GABAPENTIN 300 MG CAP PO SCH (11:01)
[2021-11-23] MEDS: SODIUM BICARBONATE TAB 650 MG TAB PO SCH (11:02)
[2021-11-23] MEDS: ENOXAPARIN 40 MG/0.4 ML SYRINGE SQ SCH (11:02)
[2021-11-23] MEDS: TAMSULOSIN 0.4 MG CAP.ER.24H PO SCH (11:02)
[2021-11-23 11:25] LABS: Basophils % (A) 1 %; Eosinophils # (A) 0.1 k/uL (0-0.7); Eosinophils % (A) 4 %; HCT 27.8 % (39.0-53.0); HGB 9.3 gm/dL (13.0-17.5); Lymphocytes # (A) 0.5 k/uL (1.0-4.8); Lymphocytes % (A) 12 %; MCHC 33.4 g/dL (31.0-37.0); MCV 89.8 fL (80.0-100.0); Mean Platelet Volume 6.7; Monocytes # (A) 0.4 k/uL (0-1.0); Monocytes % (A) 10 %; Neutrophils # (A) 2.7 k/uL (1.3-7.7); Neutrophils % (A) 70 %; Platelet Count 236 k/uL (150-450); RBC 3.09 m/uL (4.30-5.90); RDW 14.5 % (11.5-15.5); WBC 3.9 k/uL (3.8-10.6)
[2021-11-23 11:28] LABS: ALT 20 U/L (4-49); AST 35 U/L (17-59); African American GFR (CKD) >90 (>60 ml/min/1.73 sqM); Albumin 3.1 g/dL (3.5-5.0); Alkaline Phosphatase 62 U/L (38-126); Anion Gap 6 mmol/L; Blood Urea Nitrogen 11 mg/dL (9-20); Calcium 8.4 mg/dL (8.4-10.2); Carbon Dioxide 24 mmol/L (22-30); Chloride 103 mmol/L (98-107); Glucose 139 mg/dL (74-99); Magnesium 1.6 mg/dL (1.6-2.3); Non-African American GFR(CKD) >90 (>60 ml/min/1.73 sqM); Potassium 4.8 mmol/L (3.5-5.1); Sodium 133 mmol/L (137-145); Total Bilirubin 0.2 mg/dL (0.2-1.3); Total Protein 5.5 g/dL (6.3-8.2)
[2021-11-23] MEDS ORDERED: MAGNESIUM OXIDE 400 MG TAB PO SCH (11:30)
--- NOTE | 2021-11-23 11:36 | PN ---
PROGRESS NOTE This is a 71-year-old white male with severe hyponatremia, acute on chronic diastolic heart failure, COPD, osteoarthritis of the knees with hyponatremia. Awaiting recommendations on the hyponatremia prior to discharge. His breathing is improved. He has been treated for UTI. He is positive for E coli. He remains on Rocephin; possibly switch him to oral antibiotics tomorrow. He continues to be stabilized. Possible discharge pending his labs this morning and possibly oral antibiotics. Prognosis guarded. MMODL / IJN: [id number] /
[2021-11-23 11:49] LABS: Glucose,Whole Blood 144 mg/dL (75-99)
--- NOTE | 2021-11-23 12:07 | P.PN ---
Subjective Progress Note Date: 11/23/21 This is a 71-year-old male patient, essentially poor historian who came into the emergency room because of shortness of breath. The patient was having generalized weakness and he fell at home. Initially didn't want to come into the hospital and later on he called EMS. He was brought into the ED and he was found to have significantly abnormal blood work in addition to possible UTI and for that reason the patient got treated and the patient got admitted to the intensive care unit. The patient was feeling tired and he was unable to stand up and he fell forward. Denied having any injuries to his body or skeletal system. No chills. No fever. No chest pain. No shortness of breath. The patient's initial blood work in the emergency department revealed a white cell count of 6.7 with hemoglobin 9.2, platelet count was at 164, the UA was abnormal consistent with underlying UTI with clumps of white cells, normal coagulation profile, the patient's proBNP level was 1500 with a lactic acid level of 1.0. The patient also had significant abnormalities in his electrolytes, his sodium was 114 with a potassium level of 6.3 and a chloride of 87 with a bicarb of 17 and a anion gap of 10. Creatinine was at 2.7 with a mean of 43. The patient was started on IV fluids. The patient was given 1 L normal saline bolus and he was maintained on 20 mL an hour of normal saline. Sodium levels currently is at 117 and the potassium level dropped down to 5.0 and the patient got decreased treatment for his acute hyperkalemia with Kayexalate and calcium gluconate and insulin with D50. As such, the potassium level dropped back down to 5.0. Creatinine is down to 2.2 and the BUN is at 39. Glucose is at 104. The chest x-ray shows no acute abnormalities. The CAT scan of the brain is not showing any acute abnormalities. The patient was given IV Rocephin as an empiric antibiotic coverage. He received only 1 dose. Cultures are still pending for now. 11/20/2021, the patient is awake and alert and communicating. Slightly improved compared to yesterday. He was profoundly weak and a time of admission and he was also hyponatremic and he was suspected to have an UTI. Sodium level was as low as 114. The patient was placed on normal saline. The sodium level came up to 120 to yesterday 122. Following that he was started on D5 water and this morning, nephrology opted to put him back on normal saline at the rate of 60 mL an hour. Most recent sodium level is at 123. At the same time, the patient demonstrated improvement in her renal function in the creatinine is down to 1.23. His serum bicarb is at 19. Doing well. No ulcer ascitic complaints. His potassium level is down to 5.2. He is on IV Rocephin. Cultures are still pending for now. There is a concern for an underlying UTI. The patient is afebrile. The patient is hemodynamically stable. The cardiac rhythm however is of normal. The patient is bradycardic at the rate of 57 and there may be a high degree AV block. A 12-lead EKG will be obtained to evaluate this abnormality. His pulse ox on room air is 93%. 11/21 2021, the patient's sodium level is up to 128. He is on normal saline at the rate of 60 mL an hour. Doing well. On room air oxygen. Still having generalized weakness although this is improved. Awake and alert. Communicating. The patient has a creatinine of 0.8 with a BUN of 15. White cell count of 4.8. Urine cultures showing gram-negative bacillus and the patient remains on IV Rocephin. 11/22/2021, the patient is eating well. No nausea vomiting or diarrhea. No new complaints. The patient on room air oxygen. Awaiting a follow-up sodium level for now. Hemodynamically stable. Remains on antibiotics with Rocephin. Urine culture was positive for E. coli. Blood culture was positive for micrococcus. 11/23/2021, no active issues with his sodium is up to 133 and the patient is currently on room air oxygen. Urine culture was positive for E. coli. The patient is on IV Rocephin. Objective - Vital Signs Vital signs: Vital Signs Temp 98.0 F 11/23/21 04:00 Pulse 77 11/23/21 04:00 Resp 16 11/23/21 09:30 BP 154/81 11/23/21 04:00 Pulse Ox 97 11/23/21 04:00 FiO2 Intake & Output 11/22/21 11/23/21 11/23/21 18:59 06:59 18:59 Intake Total 1890 620 Output Total 1275 1850 450 Balance 615 -1230 -450 Intake: IV 20 Invasive Line 3 20 Intake, IV Titration 810 Amount Sodium Chloride 0.9% 1, 660 000 ml @ 60 mls/hr IV . [id number] [facility] Rx#:[id number] Sodium Ferric Gluconat- 100 Sucrose 125 mg In Sodium Chloride 0.9% 100 ml @ 100 mls/hr IVPB DAILY [facility] Rx#:[id number] cefTRIAXone 1 gm In 50 Sodium Chloride 0.9% 50 ml @ 100 mls/hr IVPB Q24HR [facility] Rx#:[id number] Oral 1080 600 Output: Urine 1275 1850 450 Other: Voiding Method Diaper Diaper Diaper External Catheter External Catheter External Catheter - Exam General Impression: Alert and oriented x3, not in acute distress, currently on room air oxygen HEENT: Normocephalic atraumatic, extra-ocular movements intact, pupils equal and reactive to light bilaterally, mucous membranes moist. Cardiovascular: Heart regular rate and rhythm Chest: Able to complete full sentences, no retractions, no tachypnea Abdomen: abdomen soft, non-tender, non-distended, no organomegaly Musculoskeletal: Pulses present and equal in all extremities, nonpitting edema to the bilateral lower extremities Motor: no focal deficits noted Neurological: CN II-XII grossly intact, no focal motor or sensory deficits noted Skin: Intact with no visualized rashes, the patient has stage II ulcers on his buttocks, no active drainage, no cellulitis Psych: Normal affect and mood - Labs CBC & Chem 7: 11/23/21 10:20 11/23/21 10:20 Labs: Abnormal Lab Results - Last 24 Hours (Table) 11/22/21 11/22/21 11/22/21 Range/Units 11:15 11:15 16:22 RBC (4.30-5.90) m/uL Hgb (13.0-17.5) gm/dL Hct (39.0-53.0) % Lymphocytes # (1.0-4.8) k/uL Sodium 128 L (137-145) mmol/L Glucose 114 H (74-99) mg/dL POC Glucose (mg/dL) 153 H (75-99) mg/dL Calcium 8.0 L (8.4-10.2) mg/dL C-Reactive Protein 8.0 H (<1.0) mg/dL Total Protein (6.3-8.2) g/dL Albumin (3.5-5.0) g/dL 11/22/21 11/23/21 11/23/21 Range/Units 20:17 06:40 10:20 RBC (4.30-5.90) m/uL Hgb (13.0-17.5) gm/dL Hct (39.0-53.0) % Lymphocytes # (1.0-4.8) k/uL Sodium 133 L (137-145) mmol/L Glucose 139 H (74-99) mg/dL POC Glucose (mg/dL) 133 H 106 H (75-99) mg/dL Calcium (8.4-10.2) mg/dL C-Reactive Protein (<1.0) mg/dL Total Protein 5.5 L (6.3-8.2) g/dL Albumin 3.1 L (3.5-5.0) g/dL 11/23/21 11/23/21 Range/Units 10:20 11:48 RBC 3.09 L (4.30-5.90) m/uL Hgb 9.3 L (13.0-17.5) gm/dL Hct 27.8 L (39.0-53.0) % Lymphocytes # 0.5 L (1.0-4.8) k/uL Sodium (137-145) mmol/L Glucose (74-99) mg/dL POC Glucose (mg/dL) 144 H (75-99) mg/dL Calcium (8.4-10.2) mg/dL C-Reactive Protein (<1.0) mg/dL Total Protein (6.3-8.2) g/dL Albumin (3.5-5.0) g/dL Microbiology - Last 24 Hours (Table) 11/21/21 12:00 Blood Culture - Preliminary Blood No Growth after 24 hours 11/19/21 10:55 Blood Culture Gram Stain - Final Blood Blood Culture - Final Micrococcus species Assessment and Plan Plan: Generalized weakness, likely multifactorial due to a combination of electrode disturbance, hyponatremia and possibly an underlying UTI secondary to E. coli. The patient is on IV Rocephin. Sodium levels being monitored. The level from yesterday was up to 128 , awaiting labs from today Acute hyponatremia with a sodium level of 114, improving with normal saline. This is a hypochloremic hypovolemic hypernatremia, sodium level is up to 128 , awaiting labs from today Acute kidney injury, improving, secondary to intravascular depletion/dehydration, kidney function is back to normal Acute hyperkalemia improving , back to normal Chronic atrial fibrillation, rate controlled and the patient does not take any form of anticoagulants for now. There is also concern for a high degree AV block. A 12-lead EKG will be repeated today. COPD CHF with preserved LV function. ProBNP is slightly elevated yet that is no evidence of any significant pulmonary edema Diabetes mellitus Hyperlipidemia Peripheral vascular disease Diabetic peripheral neuropathy the patient has had chronic difficulty mobility and gait and the patient has been essentially sedentary, trying to move around with the help of a walker. Acid reflux Pressure wounds on his buttock, stage II Plan Sodium level normalized Continue Rocephin regarding his E. coli in his urine, switched to oral antibiotics a good option would be Keflex or Bactrim. Wound care Pulmonary critical care services will sign off.
[2021-11-23 14:01] VITALS: RESP 15
[2021-11-23 16:21] VITALS: BP 143/57; PULSE 82; TEMP 97.3
[2021-11-23 16:25] LABS: Glucose,Whole Blood 182 mg/dL (75-99)
--- NOTE | 2021-11-23 17:20 | DS ---
DISCHARGE SUMMARY DISCHARGE DIAGNOSES: 1. Hyponatremia. 2. . 3. Diabetes . 4. Sacral ulcer, stage II. 5. Pressure ulcer, stage II. 6. Altered mental status. 7. Urinary tract infection with sepsis. 8. Acute tubular necrosis. 9. Acute renal insufficiency. 10.Acute on chronic anemia. 11.Insulin-dependent diabetes mellitus. 12.Protein-calorie malnutrition, moderate amount. Labs on discharge: Sodium 133, potassium 4.8, hemoglobin is 9 3, white count is 9.3. This white male came in with UTI with sepsis, started on broad-spectrum antibiotics. His blood culture finalized with micrococcus. Repeat blood cultures are negative. Waiting for Dr. Mitchell's recommendation on his UTI prior to discharge. If he is stable at that point he can be discharged if Dr. Mitchell okays it. MMTOMAS / DARRELL: [id number] /
--- NOTE | 2021-11-23 23:02 | P.PN ---
Subjective Progress Note Date: 11/23/21 Principal diagnosis: Urinary tract infection and positive blood cultures Patient is a 71-year-old male with multiple comorbidities, brought into the ER for weakness and fall noticed to have elevated potassium and creatinine and did have a positive UA concerning for UTI. On today's evaluation that is 11/23/2021, the patient remains to be afebrile, the patient is breathing comfortably on room air, the patient denies chest pain shortness of breath and no significant cough, the patient denies abdominal pain no diarrhea Objective - Vital Signs Vital signs: Vital Signs Temp 98.0 F 11/23/21 04:00 Pulse 77 11/23/21 04:00 Resp 16 11/23/21 09:30 BP 154/81 11/23/21 04:00 Pulse Ox 97 11/23/21 04:00 FiO2 Intake & Output 11/22/21 11/23/21 11/23/21 18:59 06:59 18:59 Intake Total 1890 620 Output Total 1275 1850 450 Balance 615 -1230 -450 Intake: IV 20 Invasive Line 3 20 Intake, IV Titration 810 Amount Sodium Chloride 0.9% 1, 660 000 ml @ 60 mls/hr IV . [id number] [facility] Rx#:[id number] Sodium Ferric Gluconat- 100 Sucrose 125 mg In Sodium Chloride 0.9% 100 ml @ 100 mls/hr IVPB DAILY [facility] Rx#:[id number] cefTRIAXone 1 gm In 50 Sodium Chloride 0.9% 50 ml @ 100 mls/hr IVPB Q24HR [facility] Rx#:[id number] Oral 1080 600 Output: Urine 1275 1850 450 Other: Voiding Method Diaper Diaper Diaper External Catheter External Catheter External Catheter - Exam GENERAL DESCRIPTION: An elderly male lying in bed in no distress RESPIRATORY SYSTEM: Unlabored breathing , decreased breath sounds at bases HEART: S1 S2 regular rate and rhythm , ABDOMEN: Soft , no tenderness EXTREMITIES: Bilateral legs are currently wrapped - Labs CBC & Chem 7: 11/23/21 10:20 11/23/21 10:20 Labs: Abnormal Lab Results - Last 24 Hours (Table) 11/22/21 11/22/21 11/22/21 Range/Units 11:15 16:22 20:17 RBC (4.30-5.90) m/uL Hgb (13.0-17.5) gm/dL Hct (39.0-53.0) % Lymphocytes # (1.0-4.8) k/uL Sodium (137-145) mmol/L Glucose (74-99) mg/dL POC Glucose (mg/dL) 153 H 133 H (75-99) mg/dL C-Reactive Protein 8.0 H (<1.0) mg/dL Total Protein (6.3-8.2) g/dL Albumin (3.5-5.0) g/dL 11/23/21 11/23/21 11/23/21 Range/Units 06:40 10:20 10:20 RBC 3.09 L (4.30-5.90) m/uL Hgb 9.3 L (13.0-17.5) gm/dL Hct 27.8 L (39.0-53.0) % Lymphocytes # 0.5 L (1.0-4.8) k/uL Sodium 133 L (137-145) mmol/L Glucose 139 H (74-99) mg/dL POC Glucose (mg/dL) 106 H (75-99) mg/dL C-Reactive Protein (<1.0) mg/dL Total Protein 5.5 L (6.3-8.2) g/dL Albumin 3.1 L (3.5-5.0) g/dL 11/23/21 Range/Units 11:48 RBC (4.30-5.90) m/uL Hgb (13.0-17.5) gm/dL Hct (39.0-53.0) % Lymphocytes # (1.0-4.8) k/uL Sodium (137-145) mmol/L Glucose (74-99) mg/dL POC Glucose (mg/dL) 144 H (75-99) mg/dL C-Reactive Protein (<1.0) mg/dL Total Protein (6.3-8.2) g/dL Albumin (3.5-5.0) g/dL Microbiology - Last 24 Hours (Table) 11/21/21 12:00 Blood Culture - Preliminary Blood No Growth after 24 hours 11/19/21 10:55 Blood Culture Gram Stain - Final Blood Blood Culture - Final Micrococcus species Assessment and Plan (1) Urinary tract infection Status: Acute Code(s): N39.0 - URINARY TRACT INFECTION, SITE NOT SPECIFIED SNOMED Code(s): 60407554 Plan: 1patient presented hospital with weakness fall which is likely multifactorial in this patient did have significant elevated BUN/creatinine possibly prerenal and did have a positive UA concerning for a UTI likely from enteric gram- negative pathogen did have been finalized with E. coli which is a sensitive pathogen, patient to finish therapy with oral Ceftin prescription pharmacy. 2 positive blood culture with micrococcus species likely contamination. Repeat blood Culture negative no need for further workup Discussed with admitting physician Time with Patient: Less than 30
[2021-11-24] MEDS ORDERED: SODIUM BICARBONATE TAB 650 MG TAB PO SCH (09:00)
--- NOTE | 2021-11-24 15:10 | PN ---
PROGRESS NOTE ADDENDUM: Please add moderate protein calorie malnutrition. MMODL / IJN: [id number] /
--- NOTE | 2021-11-29 16:46 | CDI ---
Documentation Clarification Form Date: 11/29/2021 From: LISSET Ross Admit Date: 11/18/2021 10:25:00 PM Patient Name: Richy Jones Visit Number: [id number] Discharge Date: 11/23/2021 07:00:00 PM ATTENTION: The Clinical Documentation Specialists (CDI) and [facility] Coding Staff appreciate your assistance in clarifying documentation. Please respond to the clarification below the line at the bottom and electronically sign. The CDI & [facility] Coding staff will review the response and follow-up if needed. Please note: Queries are made part of the Legal Health Record. If you have any questions, please contact the author of this message via ITS. Dr. Kyle Amado Conflicting documentation has been found in the medical record. As attending physician, please provide clarification. Progress Note: [facility] which is likely multifactorial in this patient did have significant elevated BUN/creatinine possibly prerenal and did have a positive UA concerning for a UTI likely from enteric gram- negative pathogen did have been finalized with E. coli which is a sensitive pathogen, patient to finish therapy with oral Ceftin prescription pharmacy. 2 positive blood culture with micrococcus species likely contamination. Repeat blood Culture negative no need for further workup Discussed with admitting physician Discharge Summary: This white male came in with UTI with sepsis, started on broad-spectrum antibiotics. His blood culture finalized with micrococcus. Repeat blood cultures are negative. Waiting for Dr. Mitchell's recommendation on his UTI prior to discharge. If he is Stable at that point he can be discharged if Dr. Mitchell okays it. Please clarify which diagnosis is most appropriate: [ ] UTI with sepsis [ ] UTI only, no sepsis due to likely contamination [ ] Other (please specify) [ ] Unable to determine MTDD
== END 2021-11-23 19:00 | disposition home or self-care (01) | DRG 640 ==
LOC: EC 19:12 → 3SCARD 22:25 → 2SICU 23:27 → 3SCARD 11-20 18:29
PROVIDERS: ADMIT Family Medicine; ATTEND Family Medicine
DX: E87.1 Hypo-osmolality and hyponatremia (principal); N17.0 Acute kidney failure with tubular necrosis; N39.0 Urinary tract infection, site not specified; E44.0 Moderate protein-calorie malnutrition; I48.20 Chronic atrial fibrillation, unspecified; I50.32 Chronic diastolic (congestive) heart failure; E87.2 Acidosis; E87.0 Hyperosmolality and hypernatremia; D50.9 Iron deficiency anemia, unspecified; E11.40 Type 2 diabetes mellitus with diabetic neuropathy, unspecified; E11.51 Type 2 diabetes mellitus with diabetic peripheral angiopathy without gangrene; L89.152 Pressure ulcer of sacral region, stage 2; M17.0 Bilateral primary osteoarthritis of knee; E78.5 Hyperlipidemia, unspecified; R32 Unspecified urinary incontinence; W19.XXXA Unspecified fall, initial encounter; E83.42 Hypomagnesemia; E86.1 Hypovolemia; E87.5 Hyperkalemia; I11.0 Hypertensive heart disease with heart failure; B96.20 Unspecified Escherichia coli [E. coli] as the cause of diseases classified elsewhere; J44.9 Chronic obstructive pulmonary disease, unspecified; L89.312 Pressure ulcer of right buttock, stage 2; L89.322 Pressure ulcer of left buttock, stage 2; K21.9 Gastro-esophageal reflux disease without esophagitis; E87.8 Other disorders of electrolyte and fluid balance, not elsewhere classified; Z79.4 Long term (current) use of insulin; Y92.009 Unspecified place in unspecified non-institutional (private) residence as the place of occurrence of the external cause; Z79.82 Long term (current) use of aspirin; Z79.84 Long term (current) use of oral hypoglycemic drugs; Z79.899 Other long term (current) drug therapy; Z87.891 Personal history of nicotine dependence; Z82.49 Family history of ischemic heart disease and other diseases of the circulatory system; Z82.5 Family history of asthma and other chronic lower respiratory diseases
CPT/HCPCS: 36415; 70450; 71046; 76770; 80048; 80053; 81001; 82728; 83540; 83550; 83605; 83735; 83880; 83930; 83935; 84132; 84295; 84300; 84443; 84484; 85025; 85610; 85730; 86140; 87040; 87077; 87086; 87186; 87636; 93005; 93306; 94640; 96361; 96374; 96375; 99285